=== PATIENT | male | born 1995 | race Two or more races ===

== ENCOUNTER 2018-08-28 12:47 | Emergency (ER) | payer MEDICAID ==
[~2018-08-28] VITALS: Ht 177.8 cm; Wt 119.3 kg
[2018-08-28] MEDS ORDERED: SODIUM CHLORIDE 0.9% 1,000 ML IV ONE (16:33)
[2018-08-28] MEDS ORDERED: cefTRIAXone 1GM/50ML D5W 50 ML IV ONE (16:45)
[2018-08-28] MEDS ORDERED: KETOROLAC TROMETH 15 mg/ml 1ML VL IV ONE (16:45)
[2018-08-28 17:11] LABS: Basophils # (auto) 0.1 uL; Basophils % (auto) 0.8 % (0.0-2.0); Eosinophils # (auto) 0.2 uL; Eosinophils % (auto) 1.5 % (0.0-7.0); Hematocrit 46.1 % (41.0-53.0); Hemoglobin 15.3 g/dL (13.5-17.5); Lymphocytes # (auto) 2.9 uL; Lymphocytes % (auto) 27.6 % (10.0-50.0); Mean Corpuscular Hemoglobin 27.9 pg (28.0-32.0); Mean Corpuscular Hgb Conc. 33.3 g/dL (32.0-36.0); Mean Corpuscular Volume 83.7 fL (80.0-100.0); Monocytes % (auto) 9.4 % (0.0-12.0); Neutrophils # (auto) 6.3 uL; Neutrophils % (auto) 60.7 % (37.0-80.0); Nucleated Red Blood Cells % 0.2 %; Platelet Count (auto) 190 10^3/uL (140-450); Red Cell Distribution Width 14.6 % (11.8-14.3); White Blood Cell 10.3 10^3/uL (4.4-10.8)
[2018-08-28 17:19] LABS: Albumin 3.7 g/dL (3.4-5.0); Anion Gap 8 (5-15); BUN/Creatinine Ratio 7.1; Blood Urea Nitrogen 8 mg/dL (7-18); Calcium 8.4 mg/dL (8.5-10.1); Carbon Dioxide 27 mmol/L (21-32); Chloride 108 mmol/L (98-107); GFR African American 104 mL/min; GFR Non-African American 86 mL/min; Glucose 101 mg/dL (74-106); Magnesium 2.4 mg/dL (1.6-2.6); Potassium 4.1 mmol/L (3.5-5.1); Sodium 143 mmol/L (136-145)
[2018-08-28 17:33] LABS: Alanine Aminotransferase 39 U/L (16-61); Alkaline Phosphatase 73 U/L (45-117); Aspartate Aminotransferase 12 U/L (15-37); Bilirubin, Total 0.4 mg/dL (0.2-1.0); Total Protein 7.6 g/dL (6.4-8.2)
[2018-08-28 18:47] VITALS: BP 125/65
== END 2018-08-28 18:45 | disposition home or self-care (01) ==
LOC: ER 13:04
DX: S02 Fracture of skull and facial bones (principal); H83.01 Labyrinthitis, right ear; G91.9 Hydrocephalus, unspecified; G96.0 Cerebrospinal fluid leak; Z87.820 Personal history of traumatic brain injury; X58.XXXD Exposure to other specified factors, subsequent encounter
CPT/HCPCS: 36415; 70450; 71046; 80053; 83735; 85025; 96365; 96375; 99284; J0696; J1885; J7030

== ENCOUNTER 2021-02-27 22:21 | Inpatient (IN) | payer MEDICAID ==
[~2021-02-27] VITALS: Ht 177.8 cm; Wt 103.0 kg
[2021-02-27] MEDS ORDERED: AZITHROMYCIN 500MG/ 250ML 250 ML IV ONE (22:45)
[2021-02-27] MEDS ORDERED: DexAMETHasone INJECTION 10 MG in D5W 5% 50 ML IV ONE (22:45)
[2021-02-27] MEDS ORDERED: cefTRIAXone 1GM/50ML D5W 50 ML IV ONE (22:45)
[2021-02-27 23:20] VITALS: BP 107/65
[2021-02-27] MEDS ORDERED: DexAMETHasone SOD PHOS 4 MG/1ML SDV INJ ONE (23:21)
[2021-02-28] VITALS (50 sets, daily range): BP systolic 86–136; BP diastolic 52–88
[2021-02-28] MEDS ORDERED: DexAMETHasone SOD PHOS 10MG/1ML VIAL INJ ONE
[2021-02-28] MEDS ORDERED: DOCUSATE SOD 100 MG CAP PO PRN (00:45)
[2021-02-28] MEDS ORDERED: ONDANSETRON HCL 4 MG/2 ML VIAL IV PRN (00:45)
[2021-02-28] MEDS ORDERED: HYDROcodone-ACET 5/325MG TAB PO PRN (00:45)
[2021-02-28] MEDS: SODIUM CHLORIDE 0.9% 1,000 ML IV SCH ×2 (00:45→17:50)
[2021-02-28] MEDS ORDERED: ALBUTEROL SULF HFA 90MCG INH 200DOSE IN PRN (00:45)
[2021-02-28] MEDS ORDERED: ACETAMINOPHEN 325 MG TAB PO PRN (00:45)
[2021-02-28 02:00] LABS: Basophils # (auto) 0 10 ^3/uL (0-0.2); Basophils % (auto) 0.2 % (0.0-2.0); Eosinophils # (auto) 0 10 ^3/uL (0-0.8); Hematocrit 43.4 % (41.0-53.0); Hemoglobin 14.5 g/dL (13.5-17.5); Lymphocytes # (auto) 0.7 10 ^3/uL (0.4-5.4); Lymphocytes % (auto) 9.9 % (10.0-50.0); Mean Corpuscular Hemoglobin 27.6 pg (28.0-32.0); Mean Corpuscular Hgb Conc. 33.3 g/dL (32.0-36.0); Mean Corpuscular Volume 82.9 fL (80.0-100.0); Monocytes # (auto) 0.5 10 ^3/uL (0-1.3); Monocytes % (auto) 7.1 % (0.0-12.0); Neutrophils # (auto) 5.5 10 ^3/uL (1.6-8.6); Neutrophils % (auto) 82.8 % (37.0-80.0); Nucleated Red Blood Cells % 0.1 %; Red Blood Cells 5.24 10^6/uL (4.5-5.90); Red Cell Distribution Width 14.3 % (11.8-14.3); White Blood Cell 6.7 10^3/uL (4.4-10.8)
[2021-02-28] MEDS ORDERED: ETOMIDATE (2MG/ML) 20ML VIAL IV ONE ×2 (02:11→02:30)
[2021-02-28] MEDS ORDERED: SUCCINYLCHOLINE CHLORIDE 20 MG/ML 10ML VIAL IV ONE ×2 (02:11→02:30)
[2021-02-28] MEDS ORDERED: MIDAZOLAM DRIP 50 mg/50mL 50 ML IV ONE (02:12)
[2021-02-28 02:25] LABS: INR 0.98 (0.9-1.15); Partial Thromboplastin Time 28.8 sec (23.6-33.0)
[2021-02-28] MEDS ORDERED: fentaNYL Drip 2500mCg/250mlNS 250 ML IV ONE (02:31)
[2021-02-28] MEDS: fentaNYL Drip 2500mCg/250mlNS 250 ML IV SCH ×2 (02:34→17:52)
[2021-02-28] MEDS: MIDAZOLAM DRIP 50 mg/50mL 50 ML IV SCH ×2 (02:36→17:54)
[2021-02-28 02:56] LABS: Calcium 7.5 mg/dL (8.5-10.1); Magnesium 3.6 mg/dL (1.6-2.6); Potassium 3.9 mmol/L (3.5-5.1)
[2021-02-28 03:11] LABS: Bilirubin, Total 0.3 mg/dL (0.2-1.0); Total Protein 6.7 g/dL (6.4-8.2)
[2021-02-28] MEDS ORDERED: MORPHINE SULFATE INJECTION 2 MG/ML SYRG IV PRN (03:30)
[2021-02-28] MEDS ORDERED: NITROGLYCERIN 0.4 MG SL TAB SL PRN (03:30)
[2021-02-28 04:16] LABS: BUN/Creatinine Ratio 11.8; CRP High Sensitivity 14.1 mg/dL (< 0.3)
[2021-02-28] MEDS: PROPOFOL 100 ML IV SCH (07:33)
[2021-02-28] MEDS ORDERED: BUDESONIDE (INHALATION) 180 MCG IH IN SCH (10:00)
[2021-02-28] MEDS ORDERED: FUROSEMIDE 20 MG/2 ML VIAL IV ONE ×2 (10:15→21:00)
[2021-02-28] MEDS ORDERED: IOHEXOL 350 MG/ML 100ML IJ ONE (10:35)
[2021-02-28] MEDS ORDERED: ENOXAPARIN SOD 40 MG/0.4 ML SYRINGE SC ONE (10:45)
[2021-02-28] MEDS: MULTIPLE VITAMIN TAB PO SCH (10:55)
[2021-02-28] MEDS: CHOLECALCIFEROL (VITD3) 2,000 UNIT CAP/TAB PO SCH (10:55)
[2021-02-28] MEDS: ZINC SULFATE 220mg CAP or TAB PO SCH (10:55)
[2021-02-28] MEDS: ASCORBIC ACID 1,000 MG TAB PO SCH (10:55)
[2021-02-28] MEDS: BUDESONIDE (INHALATION) 0.5 MG/2 ML NEB NEB SCH ×2 (14:00→19:40)
[2021-02-28] MEDS: FAMOTIDINE (10MG/ML) 2ML VL IV SCH (15:02)
[2021-02-28] MEDS: ALBUTEROL SULF 2.5 MG/0.5ML(0.5%) NEB SOLN NEB PRN (19:40)
[2021-02-28] MEDS ORDERED: REMDESIVIR PER PHARMACY 0 ML IV SCH (21:00)
[2021-02-28] MEDS: DexAMETHasone SOD PHOS 10MG/1ML VIAL INJ IV SCH (21:12)
[2021-02-28] MEDS: cefTRIAXone 1GM/50ML D5W 50 ML IV SCH (21:14)
[2021-02-28] MEDS: ENOXAPARIN SOD 40 MG/0.4 ML SYRINGE SC SCH (21:20)
[2021-02-28] MEDS ORDERED: REMDESIVIR 200 MG in NS 210ml LOADING DOSE ADULT IV ONE (22:00)
[2021-03-01] VITALS (88 sets, daily range): BP systolic 84–129; BP diastolic 42–74
[2021-03-01] MEDS: AZITHROMYCIN 500MG/ 250ML 250 ML IV SCH ×2 (00:18→22:15)
[2021-03-01] MEDS: FAMOTIDINE (10MG/ML) 2ML VL IV SCH ×3 (00:18→22:02)
[2021-03-01] MEDS: PROPOFOL 100 ML IV SCH (02:30)
[2021-03-01] MEDS: MIDAZOLAM DRIP 50 mg/50mL 50 ML IV SCH ×3 (05:00→19:58)
[2021-03-01] MEDS: ALBUTEROL SULF 2.5 MG/0.5ML(0.5%) NEB SOLN NEB PRN ×2 (05:59→21:38)
[2021-03-01] MEDS: BUDESONIDE (INHALATION) 0.5 MG/2 ML NEB NEB SCH ×2 (06:00→21:38)
[2021-03-01 06:35] LABS: Basophils # (auto) 0 10 ^3/uL (0-0.2); Basophils % (auto) 0.3 % (0.0-2.0); Eosinophils # (auto) 0 10 ^3/uL (0-0.8); Hematocrit 41.1 % (41.0-53.0); Hemoglobin 13.7 g/dL (13.5-17.5); Lymphocytes # (auto) 0.7 10 ^3/uL (0.4-5.4); Lymphocytes % (auto) 10.4 % (10.0-50.0); Mean Corpuscular Hemoglobin 27.5 pg (28.0-32.0); Mean Corpuscular Hgb Conc. 33.3 g/dL (32.0-36.0); Mean Corpuscular Volume 82.7 fL (80.0-100.0); Monocytes # (auto) 0.5 10 ^3/uL (0-1.3); Monocytes % (auto) 7.9 % (0.0-12.0); Neutrophils # (auto) 5.2 10 ^3/uL (1.6-8.6); Neutrophils % (auto) 81.4 % (37.0-80.0); Nucleated Red Blood Cells % 0.4 %; Red Blood Cells 4.97 10^6/uL (4.5-5.90); Red Cell Distribution Width 14.4 % (11.8-14.3); White Blood Cell 6.4 10^3/uL (4.4-10.8)
[2021-03-01 06:46] LABS: Albumin 2.7 g/dL (3.4-5.0); Anion Gap 8 (5-15); Calcium 7.5 mg/dL (8.5-10.1); Carbon Dioxide 24 mmol/L (21-32); Chloride 109 mmol/L (98-107); Magnesium 3.8 mg/dL (1.6-2.6); Potassium 3.7 mmol/L (3.5-5.1); Sodium 141 mmol/L (136-145)
[2021-03-01 06:59] LABS: Alanine Aminotransferase 61 U/L (16-61); Alkaline Phosphatase 57 U/L (45-117); Aspartate Aminotransferase 49 U/L (15-37); BUN/Creatinine Ratio 21.8; Bilirubin, Total 0.3 mg/dL (0.2-1.0); Blood Urea Nitrogen 19 mg/dL (7-18); Cholesterol 125 mg/dL (< 200); GFR African American 136 mL/min; GFR Non-African American 113 mL/min; Glucose 181 mg/dL (74-106); HDL Cholesterol 12 mg/dL (40-59); Total Protein 6.4 g/dL (6.4-8.2); Triglycerides 403 mg/dL (< 150)
[2021-03-01 07:58] LABS: Thyroid Stimulating Hormone 0.6 uIU/mL (0.358-3.74)
[2021-03-01 08:03] LABS: Urine Bacteria NONE SEEN /hpf (None Seen); Urine Blood Negative /uL (Negative); Urine Specific Gravity 1.021 (1.001-1.035); Urine WBC 4 /hpf (0 - 3)
[2021-03-01] MEDS: ENOXAPARIN SOD 40 MG/0.4 ML SYRINGE SC SCH ×2 (10:00→22:02)
[2021-03-01] MEDS: ZINC SULFATE 220mg CAP or TAB PO SCH (10:00)
[2021-03-01] MEDS: IVERMECTIN 3 MG TAB PO SCH (10:00)
[2021-03-01] MEDS: CHOLECALCIFEROL (VITD3) 2,000 UNIT CAP/TAB PO SCH (10:00)
[2021-03-01] MEDS: MULTIPLE VITAMIN TAB PO SCH (10:00)
[2021-03-01] MEDS: ASCORBIC ACID 1,000 MG TAB PO SCH (10:00)
[2021-03-01] MEDS: SODIUM CHLORIDE 0.9% 1,000 ML IV SCH ×2 (10:05→14:30)
[2021-03-01] MEDS ORDERED: FUROSEMIDE 20 MG/2 ML VIAL IV ONE (14:30)
[2021-03-01] MEDS: REMDESIVIR 100mg 100 MG in SODIUM CHL 0.9% 230 ML IV SCH (15:11)
[2021-03-01] MEDS: cefTRIAXone 1GM/50ML D5W 50 ML IV SCH (21:16)
[2021-03-01] MEDS: DexAMETHasone SOD PHOS 10MG/1ML VIAL INJ IV SCH (22:02)
[2021-03-02] VITALS (100 sets, daily range): BP systolic 97–156; BP diastolic 47–99
[2021-03-02] MEDS: fentaNYL Drip 2500mCg/250mlNS 250 ML IV SCH ×2 (02:30→12:18)
[2021-03-02] MEDS: SODIUM CHLORIDE 0.9% 1,000 ML IV SCH (02:59)
[2021-03-02 05:08] LABS: Basophils # (auto) 0 10 ^3/uL (0-0.2); Basophils % (auto) 0.3 % (0.0-2.0); Eosinophils # (auto) 0 10 ^3/uL (0-0.8); Hematocrit 38.9 % (41.0-53.0); Hemoglobin 13.6 g/dL (13.5-17.5); Lymphocytes # (auto) 0.4 10 ^3/uL (0.4-5.4); Lymphocytes % (auto) 5.8 % (10.0-50.0); Mean Corpuscular Hemoglobin 28.9 pg (28.0-32.0); Mean Corpuscular Hgb Conc. 34.9 g/dL (32.0-36.0); Mean Corpuscular Volume 82.9 fL (80.0-100.0); Monocytes # (auto) 0.7 10 ^3/uL (0-1.3); Monocytes % (auto) 8.8 % (0.0-12.0); Neutrophils # (auto) 6.5 10 ^3/uL (1.6-8.6); Neutrophils % (auto) 85.1 % (37.0-80.0); Nucleated Red Blood Cells % 0.1 %; Red Cell Distribution Width 14.6 % (11.8-14.3); White Blood Cell 7.6 10^3/uL (4.4-10.8)
[2021-03-02 05:25] LABS: Albumin 2.6 g/dL (3.4-5.0); BUN/Creatinine Ratio 26.7; Calcium 7.2 mg/dL (8.5-10.1)
[2021-03-02 05:30] LABS: Bilirubin, Total 0.3 mg/dL (0.2-1.0)
[2021-03-02] MEDS: MIDAZOLAM DRIP 50 mg/50mL 50 ML IV SCH ×4 (05:39→17:28)
[2021-03-02] MEDS: FUROSEMIDE 20 MG/2 ML VIAL IV SCH (09:31)
[2021-03-02] MEDS: ENOXAPARIN SOD 40 MG/0.4 ML SYRINGE SC SCH (09:31)
[2021-03-02] MEDS: MULTIPLE VITAMIN TAB PO SCH (09:31)
[2021-03-02] MEDS: ASCORBIC ACID 1,000 MG TAB PO SCH (09:31)
[2021-03-02] MEDS: IVERMECTIN 3 MG TAB PO SCH (09:31)
[2021-03-02] MEDS: FAMOTIDINE (10MG/ML) 2ML VL IV SCH (09:31)
[2021-03-02] MEDS: CHOLECALCIFEROL (VITD3) 2,000 UNIT CAP/TAB PO SCH (09:31)
[2021-03-02] MEDS: ZINC SULFATE 220mg CAP or TAB PO SCH (09:31)
[2021-03-02] MEDS: BUDESONIDE (INHALATION) 0.5 MG/2 ML NEB NEB SCH ×2 (11:27→19:00)
[2021-03-02] MEDS: REMDESIVIR 100mg 100 MG in SODIUM CHL 0.9% 230 ML IV SCH (15:11)
[2021-03-02] MEDS: DexAMETHasone SOD PHOS 10MG/1ML VIAL INJ IV SCH (21:45)
[2021-03-02] MEDS: cefTRIAXone 1GM/50ML D5W 50 ML IV SCH (21:46)
[2021-03-02] MEDS: ENOXAPARIN SOD 150 MG/1 ML SYRINGE SC SCH (21:47)
[2021-03-02] MEDS: AZITHROMYCIN 500MG/ 250ML 250 ML IV SCH (21:47)
[2021-03-02] MEDS: ALBUTEROL SULF 2.5 MG/0.5ML(0.5%) NEB SOLN NEB PRN (23:00)
[2021-03-03] VITALS (97 sets, daily range): BP systolic 107–150; BP diastolic 56–75
[2021-03-03 02:15] LABS: Basophils # (auto) 0 10 ^3/uL (0-0.2); Basophils % (auto) 0.1 % (0.0-2.0); Eosinophils # (auto) 0 10 ^3/uL (0-0.8); Hematocrit 39.8 % (41.0-53.0); Hemoglobin 13.3 g/dL (13.5-17.5); Lymphocytes # (auto) 0.7 10 ^3/uL (0.4-5.4); Lymphocytes % (auto) 8.7 % (10.0-50.0); Mean Corpuscular Hemoglobin 27.6 pg (28.0-32.0); Mean Corpuscular Hgb Conc. 33.5 g/dL (32.0-36.0); Mean Corpuscular Volume 82.5 fL (80.0-100.0); Monocytes # (auto) 0.9 10 ^3/uL (0-1.3); Monocytes % (auto) 10.7 % (0.0-12.0); Neutrophils # (auto) 6.5 10 ^3/uL (1.6-8.6); Neutrophils % (auto) 80.5 % (37.0-80.0); Nucleated Red Blood Cells % 0.1 %; Red Blood Cells 4.82 10^6/uL (4.5-5.90); Red Cell Distribution Width 14.8 % (11.8-14.3)
[2021-03-03 02:37] LABS: Albumin 2.5 g/dL (3.4-5.0); Calcium 7.6 mg/dL (8.5-10.1); Potassium 3.7 mmol/L (3.5-5.1)
[2021-03-03 02:39] LABS: BUN/Creatinine Ratio 28.9
[2021-03-03 02:41] LABS: Bilirubin, Total 0.6 mg/dL (0.2-1.0); Total Protein 6.2 g/dL (6.4-8.2)
[2021-03-03] MEDS: SODIUM CHLORIDE 0.9% 1,000 ML IV SCH (06:21)
[2021-03-03] MEDS: BUDESONIDE (INHALATION) 0.5 MG/2 ML NEB NEB SCH ×2 (08:19→18:58)
[2021-03-03] MEDS: ALBUTEROL SULF 2.5 MG/0.5ML(0.5%) NEB SOLN NEB PRN ×2 (08:20→18:57)
[2021-03-03] MEDS: MULTIPLE VITAMIN TAB PO SCH (09:22)
[2021-03-03] MEDS: PANTOPRAZOLE 40 MG/10 ML VIAL INJ IV SCH (09:22)
[2021-03-03] MEDS: FUROSEMIDE 20 MG/2 ML VIAL IV SCH (09:22)
[2021-03-03] MEDS: ZINC SULFATE 220mg CAP or TAB PO SCH (09:22)
[2021-03-03] MEDS: ENOXAPARIN SOD 150 MG/1 ML SYRINGE SC SCH ×2 (09:23→21:39)
[2021-03-03] MEDS: ASCORBIC ACID 1,000 MG TAB PO SCH (09:23)
[2021-03-03] MEDS: CHOLECALCIFEROL (VITD3) 2,000 UNIT CAP/TAB PO SCH (09:23)
[2021-03-03] MEDS: IVERMECTIN 3 MG TAB PO SCH (09:23)
[2021-03-03] MEDS ORDERED: D5W 5% 1,000 ML IV SCH (12:30)
[2021-03-03] MEDS: D5W 5% 1,000 ML IV SCH ×2 (14:36→20:00)
[2021-03-03] MEDS: MIDAZOLAM DRIP 50 mg/50mL 50 ML IV SCH (14:37)
[2021-03-03] MEDS: FREE WATER GT SCH ×3 (15:01→23:27)
[2021-03-03] MEDS: fentaNYL Drip 2500mCg/250mlNS 250 ML IV SCH (18:05)
[2021-03-03] MEDS: AZITHROMYCIN 500MG/ 250ML 250 ML IV SCH (21:38)
[2021-03-03] MEDS: DexAMETHasone SOD PHOS 10MG/1ML VIAL INJ IV SCH (21:38)
[2021-03-03] MEDS: cefTRIAXone 1GM/50ML D5W 50 ML IV SCH (21:39)
[2021-03-04] VITALS (99 sets, daily range): BP systolic 87–129; BP diastolic 56–121
[2021-03-04 02:55] LABS: Basophils # (auto) 0 10 ^3/uL (0-0.2); Basophils % (auto) 0.1 % (0.0-2.0); Eosinophils # (auto) 0 10 ^3/uL (0-0.8); Hematocrit 39.5 % (41.0-53.0); Hemoglobin 12.9 g/dL (13.5-17.5); Lymphocytes # (auto) 0.6 10 ^3/uL (0.4-5.4); Lymphocytes % (auto) 7.7 % (10.0-50.0); Mean Corpuscular Hemoglobin 27.6 pg (28.0-32.0); Mean Corpuscular Hgb Conc. 32.6 g/dL (32.0-36.0); Mean Corpuscular Volume 84.7 fL (80.0-100.0); Monocytes # (auto) 1.1 10 ^3/uL (0-1.3); Monocytes % (auto) 13.9 % (0.0-12.0); Neutrophils # (auto) 6.5 10 ^3/uL (1.6-8.6); Neutrophils % (auto) 78.3 % (37.0-80.0); Nucleated Red Blood Cells % 0.1 %; Red Blood Cells 4.66 10^6/uL (4.5-5.90); Red Cell Distribution Width 14.4 % (11.8-14.3); White Blood Cell 8.3 10^3/uL (4.4-10.8)
[2021-03-04] MEDS: FREE WATER GT SCH ×7 (03:00→23:45)
[2021-03-04 03:17] LABS: Albumin 2.4 g/dL (3.4-5.0); Calcium 7.6 mg/dL (8.5-10.1); Potassium 4.3 mmol/L (3.5-5.1)
[2021-03-04 03:20] LABS: BUN/Creatinine Ratio 29.1
[2021-03-04 03:25] LABS: Bilirubin, Total 0.7 mg/dL (0.2-1.0)
[2021-03-04 03:43] LABS: CRP High Sensitivity 1.27 mg/dL (< 0.3)
[2021-03-04] MEDS: BUDESONIDE (INHALATION) 0.5 MG/2 ML NEB NEB SCH ×2 (05:56→21:33)
[2021-03-04] MEDS: ENOXAPARIN SOD 150 MG/1 ML SYRINGE SC SCH ×2 (10:00→21:47)
[2021-03-04] MEDS: ZINC SULFATE 220mg CAP or TAB PO SCH (10:00)
[2021-03-04] MEDS: CHOLECALCIFEROL (VITD3) 2,000 UNIT CAP/TAB PO SCH (10:00)
[2021-03-04] MEDS: IVERMECTIN 3 MG TAB PO SCH (10:00)
[2021-03-04] MEDS: ASCORBIC ACID 1,000 MG TAB PO SCH (10:00)
[2021-03-04] MEDS: PANTOPRAZOLE 40 MG/10 ML VIAL INJ IV SCH (10:00)
[2021-03-04] MEDS: MULTIPLE VITAMIN TAB PO SCH (10:00)
[2021-03-04] MEDS: cefTRIAXone 1GM/50ML D5W 50 ML IV SCH (21:10)
[2021-03-04] MEDS: DexAMETHasone SOD PHOS 10MG/1ML VIAL INJ IV SCH (21:10)
[2021-03-04] MEDS: AZITHROMYCIN 500MG/ 250ML 250 ML IV SCH (21:10)
[2021-03-04] MEDS: NOREPINEPHRINE 8 MG/250ML KIT 250 ML IV SCH (22:45)
[2021-03-04] MEDS: PROPOFOL 100 ML IV SCH (23:00)
[2021-03-05] VITALS (99 sets, daily range): BP systolic 103–142; BP diastolic 56–91
[2021-03-05] MEDS: MIDAZOLAM DRIP 50 mg/50mL 50 ML IV SCH ×4 (02:30→22:00)
[2021-03-05] MEDS: fentaNYL Drip 2500mCg/250mlNS 250 ML IV SCH (02:30)
[2021-03-05 02:53] LABS: BUN/Creatinine Ratio 28.1; Calcium 7.8 mg/dL (8.5-10.1)
[2021-03-05] MEDS: FREE WATER GT SCH ×6 (03:00→18:10)
[2021-03-05 03:06] LABS: Basophils # (auto) 0.1 10 ^3/uL (0-0.2); Basophils % (auto) 0.7 % (0.0-2.0); Eosinophils # (auto) 0 10 ^3/uL (0-0.8); Hematocrit 40.6 % (41.0-53.0); Hemoglobin 13.1 g/dL (13.5-17.5); Lymphocytes # (auto) 0.7 10 ^3/uL (0.4-5.4); Mean Corpuscular Hemoglobin 27.5 pg (28.0-32.0); Mean Corpuscular Hgb Conc. 32.3 g/dL (32.0-36.0); Mean Corpuscular Volume 85.1 fL (80.0-100.0); Monocytes # (auto) 0.6 10 ^3/uL (0-1.3); Monocytes % (auto) 4.7 % (0.0-12.0); Neutrophils # (auto) 12.2 10 ^3/uL (1.6-8.6); Neutrophils % (auto) 89.6 % (37.0-80.0); Nucleated Red Blood Cells % 0.1 %; Red Blood Cells 4.77 10^6/uL (4.5-5.90); Red Cell Distribution Width 14.7 % (11.8-14.3); White Blood Cell 13.6 10^3/uL (4.4-10.8)
[2021-03-05] MEDS: BUDESONIDE (INHALATION) 0.5 MG/2 ML NEB NEB SCH ×2 (06:52→22:43)
[2021-03-05] MEDS: PANTOPRAZOLE 40 MG/10 ML VIAL INJ IV SCH (10:35)
[2021-03-05] MEDS: ZINC SULFATE 220mg CAP or TAB PO SCH (10:36)
[2021-03-05] MEDS: CHOLECALCIFEROL (VITD3) 2,000 UNIT CAP/TAB PO SCH (10:36)
[2021-03-05] MEDS: ASCORBIC ACID 1,000 MG TAB PO SCH (10:36)
[2021-03-05] MEDS: IVERMECTIN 3 MG TAB PO SCH (10:36)
[2021-03-05] MEDS: ENOXAPARIN SOD 150 MG/1 ML SYRINGE SC SCH ×2 (10:37→22:00)
[2021-03-05] MEDS: MULTIPLE VITAMIN TAB PO SCH (10:39)
[2021-03-05] MEDS ORDERED: Vital AF 1.2 Cal 1 liter bottle GT SCH (15:45)
[2021-03-05] MEDS: DexAMETHasone SOD PHOS 10MG/1ML VIAL INJ IV SCH (22:00)
[2021-03-05] MEDS: cefTRIAXone 1GM/50ML D5W 50 ML IV SCH (22:00)
[2021-03-05] MEDS: ALBUTEROL SULF 2.5 MG/0.5ML(0.5%) NEB SOLN NEB PRN (22:43)
[2021-03-05] MEDS: PROPOFOL 100 ML IV SCH (22:45)
[2021-03-05] MEDS: NOREPINEPHRINE 8 MG/250ML KIT 250 ML IV SCH (22:45)
[2021-03-06] VITALS (101 sets, daily range): BP systolic 108–157; BP diastolic 53–95
[2021-03-06] MEDS: MIDAZOLAM DRIP 50 mg/50mL 50 ML IV SCH ×6 (01:50→23:02)
[2021-03-06] MEDS: fentaNYL Drip 2500mCg/250mlNS 250 ML IV SCH ×2 (02:30→19:42)
[2021-03-06] MEDS: FREE WATER GT SCH ×7 (03:20→18:00)
[2021-03-06 04:57] LABS: Basophils # (auto) 0.1 10 ^3/uL (0-0.2); Basophils % (auto) 0.7 % (0.0-2.0); Eosinophils # (auto) 0 10 ^3/uL (0-0.8); Hematocrit 40.6 % (41.0-53.0); Hemoglobin 12.9 g/dL (13.5-17.5); Lymphocytes # (auto) 0.6 10 ^3/uL (0.4-5.4); Lymphocytes % (auto) 4.5 % (10.0-50.0); Mean Corpuscular Hemoglobin 27.2 pg (28.0-32.0); Mean Corpuscular Hgb Conc. 31.8 g/dL (32.0-36.0); Mean Corpuscular Volume 85.4 fL (80.0-100.0); Monocytes # (auto) 0.5 10 ^3/uL (0-1.3); Monocytes % (auto) 3.8 % (0.0-12.0); Neutrophils # (auto) 11.8 10 ^3/uL (1.6-8.6); Nucleated Red Blood Cells % 0.3 %; Red Blood Cells 4.75 10^6/uL (4.5-5.90); Red Cell Distribution Width 14.8 % (11.8-14.3)
[2021-03-06 05:22] LABS: Potassium 5.1 mmol/L (3.5-5.1)
[2021-03-06 05:31] LABS: Albumin 2.4 g/dL (3.4-5.0); BUN/Creatinine Ratio 33.3; Calcium 7.9 mg/dL (8.5-10.1)
[2021-03-06 05:46] LABS: Bilirubin, Total 0.6 mg/dL (0.2-1.0); Total Protein 5.9 g/dL (6.4-8.2)
[2021-03-06] MEDS: PANTOPRAZOLE 40 MG/10 ML VIAL INJ IV SCH (12:05)
[2021-03-06] MEDS: FUROSEMIDE 40 MG/4 ML VIAL IV SCH (12:05)
[2021-03-06] MEDS: MULTIPLE VITAMIN TAB PO SCH (12:05)
[2021-03-06] MEDS: ZINC SULFATE 220mg CAP or TAB PO SCH (12:05)
[2021-03-06] MEDS: ASCORBIC ACID 1,000 MG TAB PO SCH (12:05)
[2021-03-06] MEDS: CHOLECALCIFEROL (VITD3) 2,000 UNIT CAP/TAB PO SCH (12:06)
[2021-03-06] MEDS: ENOXAPARIN SOD 150 MG/1 ML SYRINGE SC SCH ×2 (12:06→22:00)
[2021-03-06] MEDS ORDERED: ROCURONIUM 10MG/ML 10ML VIAL IV ONE (17:50)
[2021-03-06] MEDS: ROCURONIUM 10MG/ML 10ML VIAL IV PRN ×2 (18:00→23:59)
[2021-03-06] MEDS: BUDESONIDE (INHALATION) 0.5 MG/2 ML NEB NEB SCH (21:12)
[2021-03-06] MEDS: ALBUTEROL SULF 2.5 MG/0.5ML(0.5%) NEB SOLN NEB PRN (21:12)
[2021-03-06] MEDS: PROPOFOL 100 ML IV SCH (21:25)
[2021-03-06] MEDS: DexAMETHasone SOD PHOS 10MG/1ML VIAL INJ IV SCH (21:59)
[2021-03-06] MEDS: cefTRIAXone 1GM/50ML D5W 50 ML IV SCH (22:00)
[2021-03-06] MEDS: NOREPINEPHRINE 8 MG/250ML KIT 250 ML IV SCH (22:45)
[2021-03-07] VITALS (100 sets, daily range): BP systolic 102–151; BP diastolic 57–87
[2021-03-07] MEDS: ROCURONIUM 10MG/ML 10ML VIAL IV PRN ×2 (02:04→06:07)
[2021-03-07] MEDS: PROPOFOL 100 ML IV SCH ×7 (02:11→23:37)
[2021-03-07] MEDS: FREE WATER GT SCH ×8 (03:00→23:02)
[2021-03-07] MEDS: MIDAZOLAM DRIP 50 mg/50mL 50 ML IV SCH ×5 (03:06→22:00)
[2021-03-07 04:24] LABS: Basophils # (auto) 0 10 ^3/uL (0-0.2); Basophils % (auto) 0.4 % (0.0-2.0); Eosinophils # (auto) 0 10 ^3/uL (0-0.8); Eosinophils % (auto) 0.1 % (0.0-7.0); Hematocrit 40.7 % (41.0-53.0); Hemoglobin 13.2 g/dL (13.5-17.5); Lymphocytes # (auto) 0.4 10 ^3/uL (0.4-5.4); Lymphocytes % (auto) 3.7 % (10.0-50.0); Mean Corpuscular Hemoglobin 27.7 pg (28.0-32.0); Mean Corpuscular Hgb Conc. 32.5 g/dL (32.0-36.0); Mean Corpuscular Volume 85.1 fL (80.0-100.0); Monocytes # (auto) 0.7 10 ^3/uL (0-1.3); Monocytes % (auto) 5.9 % (0.0-12.0); Neutrophils # (auto) 10.3 10 ^3/uL (1.6-8.6); Neutrophils % (auto) 89.9 % (37.0-80.0); Nucleated Red Blood Cells % 0.2 %; Red Blood Cells 4.78 10^6/uL (4.5-5.90); White Blood Cell 11.4 10^3/uL (4.4-10.8)
[2021-03-07] MEDS: fentaNYL Drip 2500mCg/250mlNS 250 ML IV SCH ×3 (04:30→21:02)
[2021-03-07 04:47] LABS: Calcium 7.8 mg/dL (8.5-10.1); Potassium 5.2 mmol/L (3.5-5.1)
[2021-03-07 04:49] LABS: BUN/Creatinine Ratio 37.9
[2021-03-07] MEDS: BUDESONIDE (INHALATION) 0.5 MG/2 ML NEB NEB SCH ×2 (06:03→19:24)
[2021-03-07] MEDS: ALBUTEROL SULF 2.5 MG/0.5ML(0.5%) NEB SOLN NEB PRN ×2 (06:04→19:24)
[2021-03-07] MEDS: ROCURONIUM BROMIDE 1,000 MG in D5W 5% 150 ML IV SCH ×2 (09:20→23:37)
[2021-03-07] MEDS: FUROSEMIDE 40 MG/4 ML VIAL IV SCH (10:17)
[2021-03-07] MEDS: PANTOPRAZOLE 40 MG/10 ML VIAL INJ IV SCH (10:17)
[2021-03-07] MEDS: MULTIPLE VITAMIN TAB PO SCH (10:17)
[2021-03-07] MEDS: CHOLECALCIFEROL (VITD3) 2,000 UNIT CAP/TAB PO SCH (10:17)
[2021-03-07] MEDS: ZINC SULFATE 220mg CAP or TAB PO SCH (10:17)
[2021-03-07] MEDS: ENOXAPARIN SOD 150 MG/1 ML SYRINGE SC SCH ×2 (10:18→22:11)
[2021-03-07] MEDS: ASCORBIC ACID 1,000 MG TAB PO SCH (10:18)
[2021-03-07] MEDS: DexAMETHasone SOD PHOS 10MG/1ML VIAL INJ IV SCH (22:11)
[2021-03-07] MEDS: cefTRIAXone 1GM/50ML D5W 50 ML IV SCH (22:11)
[2021-03-07] MEDS: NOREPINEPHRINE 8 MG/250ML KIT 250 ML IV SCH (22:45)
[2021-03-08] VITALS (99 sets, daily range): BP systolic 96–154; BP diastolic 53–88
[2021-03-08] MEDS: PROPOFOL 100 ML IV SCH ×7 (02:10→22:04)
[2021-03-08] MEDS: MIDAZOLAM DRIP 50 mg/50mL 50 ML IV SCH ×4 (02:10→20:52)
[2021-03-08] MEDS: FREE WATER GT SCH ×7 (03:00→23:49)
[2021-03-08 04:35] LABS: Basophils # (auto) 0.1 10 ^3/uL (0-0.2); Basophils % (auto) 0.7 % (0.0-2.0); Eosinophils # (auto) 0 10 ^3/uL (0-0.8); Hematocrit 41.5 % (41.0-53.0); Hemoglobin 13.5 g/dL (13.5-17.5); Lymphocytes # (auto) 0.6 10 ^3/uL (0.4-5.4); Lymphocytes % (auto) 4.9 % (10.0-50.0); Mean Corpuscular Hemoglobin 27.5 pg (28.0-32.0); Mean Corpuscular Hgb Conc. 32.5 g/dL (32.0-36.0); Mean Corpuscular Volume 84.5 fL (80.0-100.0); Monocytes # (auto) 0.6 10 ^3/uL (0-1.3); Neutrophils # (auto) 10.5 10 ^3/uL (1.6-8.6); Neutrophils % (auto) 89.4 % (37.0-80.0); Nucleated Red Blood Cells % 0.1 %; Red Blood Cells 4.91 10^6/uL (4.5-5.90); Red Cell Distribution Width 14.2 % (11.8-14.3); White Blood Cell 11.7 10^3/uL (4.4-10.8)
[2021-03-08 04:56] LABS: Albumin 2.6 g/dL (3.4-5.0); BUN/Creatinine Ratio 30.6; Calcium 7.8 mg/dL (8.5-10.1); Potassium 4.5 mmol/L (3.5-5.1)
[2021-03-08] MEDS: fentaNYL Drip 2500mCg/250mlNS 250 ML IV SCH ×2 (04:57→21:51)
[2021-03-08 04:59] LABS: Bilirubin, Total 0.6 mg/dL (0.2-1.0); Total Protein 6.7 g/dL (6.4-8.2)
[2021-03-08] MEDS: ALBUTEROL SULF 2.5 MG/0.5ML(0.5%) NEB SOLN NEB PRN ×2 (06:09→22:05)
[2021-03-08] MEDS: BUDESONIDE (INHALATION) 0.5 MG/2 ML NEB NEB SCH ×2 (06:09→22:05)
[2021-03-08] MEDS: ZINC SULFATE 220mg CAP or TAB PO SCH (10:00)
[2021-03-08] MEDS: MULTIPLE VITAMIN TAB PO SCH (10:00)
[2021-03-08] MEDS: ASCORBIC ACID 1,000 MG TAB PO SCH (10:00)
[2021-03-08] MEDS: CHOLECALCIFEROL (VITD3) 2,000 UNIT CAP/TAB PO SCH (10:00)
[2021-03-08] MEDS: PANTOPRAZOLE 40 MG/10 ML VIAL INJ IV SCH (10:03)
[2021-03-08] MEDS: FUROSEMIDE 40 MG/4 ML VIAL IV SCH ×2 (10:03→17:53)
[2021-03-08] MEDS: ENOXAPARIN SOD 150 MG/1 ML SYRINGE SC SCH ×2 (10:10→22:04)
[2021-03-08] MEDS: ROCURONIUM BROMIDE 1,000 MG in D5W 5% 150 ML IV SCH (15:34)
[2021-03-08] MEDS ORDERED: TPN PER PHARMACY 0 ML IV SCH (16:00)
[2021-03-08] MEDS ORDERED: KEP500T PO (17:11)
[2021-03-08 17:32] LABS: Magnesium 2.8 mg/dL (1.6-2.6); Phosphorus 3.4 mg/dL (2.5-4.90)
[2021-03-08 17:36] LABS: Pre Albumin 35.7 mg/dL (20.0-40.0)
[2021-03-08] MEDS ORDERED: AMINO ACID INFUSION IN D10W 1,000 ML IV NR (20:00)
[2021-03-08] MEDS: DexAMETHasone SOD PHOS 10MG/1ML VIAL INJ IV SCH (22:04)
[2021-03-08] MEDS: cefTRIAXone 1GM/50ML D5W 50 ML IV SCH (22:04)
[2021-03-08] MEDS: NOREPINEPHRINE 8 MG/250ML KIT 250 ML IV SCH (22:45)
[2021-03-08] MEDS: ACCU-CHEK COMFORT CURVE STRIP VI SCH (23:40)
[2021-03-08] MEDS: InsuLIN REG 1unit/0.01ml Soln (100units/ml) SC SCH (23:41)
[2021-03-09] VITALS (95 sets, daily range): BP systolic 87–143; BP diastolic 46–79
[2021-03-09] MEDS ORDERED: DEXTROSE (50%) 50ML SYRG IV SCH
[2021-03-09] MEDS: MIDAZOLAM DRIP 50 mg/50mL 50 ML IV SCH ×4 (01:49→21:20)
[2021-03-09] MEDS: PROPOFOL 100 ML IV SCH ×7 (01:49→22:55)
[2021-03-09] MEDS: FREE WATER GT SCH ×6 (03:00→13:26)
[2021-03-09] MEDS: ACCU-CHEK COMFORT CURVE STRIP VI SCH ×4 (05:49→23:51)
[2021-03-09] MEDS: InsuLIN REG 1unit/0.01ml Soln (100units/ml) SC SCH ×4 (05:53→23:54)
[2021-03-09] MEDS: fentaNYL Drip 2500mCg/250mlNS 250 ML IV SCH ×2 (05:54→20:24)
[2021-03-09] MEDS: FUROSEMIDE 40 MG/4 ML VIAL IV SCH ×2 (05:57→17:19)
[2021-03-09 06:46] LABS: Basophils # (auto) 0 10 ^3/uL (0-0.2); Basophils % (auto) 0.3 % (0.0-2.0); Eosinophils # (auto) 0 10 ^3/uL (0-0.8); Eosinophils % (auto) 0.1 % (0.0-7.0); Hemoglobin 13.5 g/dL (13.5-17.5); Lymphocytes # (auto) 0.5 10 ^3/uL (0.4-5.4); Lymphocytes % (auto) 4.2 % (10.0-50.0); Mean Corpuscular Hemoglobin 27.9 pg (28.0-32.0); Mean Corpuscular Hgb Conc. 32.9 g/dL (32.0-36.0); Mean Corpuscular Volume 84.9 fL (80.0-100.0); Monocytes # (auto) 0.6 10 ^3/uL (0-1.3); Monocytes % (auto) 5.1 % (0.0-12.0); Neutrophils # (auto) 11.5 10 ^3/uL (1.6-8.6); Neutrophils % (auto) 90.3 % (37.0-80.0); Nucleated Red Blood Cells % 0.1 %; Red Blood Cells 4.83 10^6/uL (4.5-5.90); Red Cell Distribution Width 14.1 % (11.8-14.3); White Blood Cell 12.7 10^3/uL (4.4-10.8)
[2021-03-09 06:56] LABS: Potassium 4.7 mmol/L (3.5-5.1)
[2021-03-09 07:01] LABS: Albumin 2.7 g/dL (3.4-5.0); BUN/Creatinine Ratio 31.1; Magnesium 3.2 mg/dL (1.6-2.6)
[2021-03-09 07:03] LABS: Bilirubin, Total 0.5 mg/dL (0.2-1.0); Phosphorus 3.8 mg/dL (2.5-4.90); Total Protein 6.9 g/dL (6.4-8.2)
[2021-03-09] MEDS: ZINC SULFATE 220mg CAP or TAB PO SCH (07:58)
[2021-03-09] MEDS: ASCORBIC ACID 1,000 MG TAB PO SCH (07:58)
[2021-03-09] MEDS: MULTIPLE VITAMIN TAB PO SCH (07:58)
[2021-03-09] MEDS: CHOLECALCIFEROL (VITD3) 2,000 UNIT CAP/TAB PO SCH (07:58)
[2021-03-09] MEDS: ROCURONIUM BROMIDE 1,000 MG in D5W 5% 150 ML IV SCH (09:36)
[2021-03-09] MEDS: ALBUTEROL SULF 2.5 MG/0.5ML(0.5%) NEB SOLN NEB PRN (09:47)
[2021-03-09] MEDS: BUDESONIDE (INHALATION) 0.5 MG/2 ML NEB NEB SCH ×2 (09:47→22:21)
[2021-03-09] MEDS: ENOXAPARIN SOD 150 MG/1 ML SYRINGE SC SCH ×2 (10:08→22:00)
[2021-03-09] MEDS: PANTOPRAZOLE 40 MG/10 ML VIAL INJ IV SCH (10:08)
[2021-03-09] MEDS ORDERED: TPN PER PHARMACY IV NR ×6 (20:00)
[2021-03-09] MEDS: DexAMETHasone SOD PHOS 10MG/1ML VIAL INJ IV SCH (22:00)
[2021-03-09] MEDS: NOREPINEPHRINE 8 MG/250ML KIT 250 ML IV SCH (22:45)
[2021-03-09] MEDS: cefTRIAXone 1GM/50ML D5W 50 ML IV SCH (22:45)
[2021-03-10] VITALS (98 sets, daily range): BP systolic 93–165; BP diastolic 54–91
[2021-03-10] MEDS: ROCURONIUM BROMIDE 1,000 MG in D5W 5% 150 ML IV SCH ×2 (00:24→18:50)
[2021-03-10] MEDS: PROPOFOL 100 ML IV SCH ×5 (01:40→22:30)
[2021-03-10] MEDS: MIDAZOLAM DRIP 50 mg/50mL 50 ML IV SCH ×4 (01:40→23:40)
[2021-03-10] MEDS: FREE WATER GT SCH ×8 (03:00→23:09)
[2021-03-10 04:18] LABS: Basophils # (auto) 0 10 ^3/uL (0-0.2); Basophils % (auto) 0.3 % (0.0-2.0); Eosinophils # (auto) 0 10 ^3/uL (0-0.8); Eosinophils % (auto) 0.2 % (0.0-7.0); Hematocrit 40.7 % (41.0-53.0); Hemoglobin 13.4 g/dL (13.5-17.5); Lymphocytes # (auto) 0.5 10 ^3/uL (0.4-5.4); Lymphocytes % (auto) 3.4 % (10.0-50.0); Mean Corpuscular Hgb Conc. 32.8 g/dL (32.0-36.0); Mean Corpuscular Volume 85.3 fL (80.0-100.0); Monocytes # (auto) 0.6 10 ^3/uL (0-1.3); Monocytes % (auto) 4.2 % (0.0-12.0); Neutrophils # (auto) 12.7 10 ^3/uL (1.6-8.6); Neutrophils % (auto) 91.9 % (37.0-80.0); Red Blood Cells 4.78 10^6/uL (4.5-5.90); Red Cell Distribution Width 14.2 % (11.8-14.3); White Blood Cell 13.8 10^3/uL (4.4-10.8)
[2021-03-10 05:05] LABS: Albumin 2.7 g/dL (3.4-5.0); BUN/Creatinine Ratio 28.2; Bilirubin, Total 0.4 mg/dL (0.2-1.0); Calcium 7.8 mg/dL (8.5-10.1); Magnesium 2.8 mg/dL (1.6-2.6); Phosphorus 2.9 mg/dL (2.5-4.90); Total Protein 6.9 g/dL (6.4-8.2)
[2021-03-10] MEDS: fentaNYL Drip 2500mCg/250mlNS 250 ML IV SCH ×3 (05:15→21:55)
[2021-03-10] MEDS: FUROSEMIDE 40 MG/4 ML VIAL IV SCH ×2 (05:30→17:28)
[2021-03-10] MEDS: ACCU-CHEK COMFORT CURVE STRIP VI SCH ×3 (05:30→17:27)
[2021-03-10] MEDS: InsuLIN REG 1unit/0.01ml Soln (100units/ml) SC SCH ×3 (05:31→17:27)
[2021-03-10] MEDS: BUDESONIDE (INHALATION) 0.5 MG/2 ML NEB NEB SCH ×2 (07:56→22:24)
[2021-03-10] MEDS: ALBUTEROL SULF 2.5 MG/0.5ML(0.5%) NEB SOLN NEB PRN ×2 (07:56→22:24)
[2021-03-10] MEDS: MULTIPLE VITAMIN TAB PO SCH (08:34)
[2021-03-10] MEDS: PANTOPRAZOLE 40 MG/10 ML VIAL INJ IV SCH (08:34)
[2021-03-10] MEDS: ZINC SULFATE 220mg CAP or TAB PO SCH (08:34)
[2021-03-10] MEDS: ENOXAPARIN SOD 150 MG/1 ML SYRINGE SC SCH ×2 (08:35→22:00)
[2021-03-10] MEDS: CHOLECALCIFEROL (VITD3) 2,000 UNIT CAP/TAB PO SCH (08:35)
[2021-03-10] MEDS: ASCORBIC ACID 1,000 MG TAB PO SCH (08:35)
[2021-03-10] MEDS ORDERED: TPN PER PHARMACY IV NR ×8 (20:00)
[2021-03-10] MEDS: DexAMETHasone SOD PHOS 10MG/1ML VIAL INJ IV SCH (22:00)
[2021-03-10] MEDS: NOREPINEPHRINE 8 MG/250ML KIT 250 ML IV SCH (22:45)
[2021-03-11] VITALS (99 sets, daily range): BP systolic 87–168; BP diastolic 51–93
[2021-03-11] MEDS: ACCU-CHEK COMFORT CURVE STRIP VI SCH ×4 (00:15→17:50)
[2021-03-11] MEDS: InsuLIN REG 1unit/0.01ml Soln (100units/ml) SC SCH ×4 (00:16→18:00)
[2021-03-11] MEDS: PROPOFOL 100 ML IV SCH ×7 (00:30→22:24)
[2021-03-11] MEDS: FREE WATER GT SCH ×7 (03:00→23:17)
[2021-03-11] MEDS: MIDAZOLAM DRIP 50 mg/50mL 50 ML IV SCH ×6 (03:25→21:00)
[2021-03-11 04:40] LABS: Basophils # (auto) 0.1 10 ^3/uL (0-0.2); Basophils % (auto) 0.4 % (0.0-2.0); Eosinophils # (auto) 0.1 10 ^3/uL (0-0.8); Eosinophils % (auto) 0.6 % (0.0-7.0); Hematocrit 39.4 % (41.0-53.0); Hemoglobin 13.2 g/dL (13.5-17.5); Lymphocytes # (auto) 0.6 10 ^3/uL (0.4-5.4); Lymphocytes % (auto) 4.1 % (10.0-50.0); Mean Corpuscular Hemoglobin 28.1 pg (28.0-32.0); Mean Corpuscular Hgb Conc. 33.5 g/dL (32.0-36.0); Mean Corpuscular Volume 83.9 fL (80.0-100.0); Monocytes # (auto) 0.6 10 ^3/uL (0-1.3); Monocytes % (auto) 4.3 % (0.0-12.0); Neutrophils # (auto) 12.3 10 ^3/uL (1.6-8.6); Neutrophils % (auto) 90.6 % (37.0-80.0); Nucleated Red Blood Cells % 0.2 %; Red Cell Distribution Width 14.1 % (11.8-14.3); White Blood Cell 13.6 10^3/uL (4.4-10.8)
[2021-03-11 05:02] LABS: Albumin 2.6 g/dL (3.4-5.0); Calcium 7.8 mg/dL (8.5-10.1); Magnesium 2.9 mg/dL (1.6-2.6); Potassium 3.9 mmol/L (3.5-5.1)
[2021-03-11 05:04] LABS: BUN/Creatinine Ratio 27.3
[2021-03-11 05:07] LABS: Bilirubin, Total 0.5 mg/dL (0.2-1.0); Phosphorus 2.9 mg/dL (2.5-4.90); Total Protein 6.6 g/dL (6.4-8.2)
[2021-03-11] MEDS: FUROSEMIDE 40 MG/4 ML VIAL IV SCH ×2 (05:51→17:35)
[2021-03-11] MEDS: fentaNYL Drip 2500mCg/250mlNS 250 ML IV SCH ×2 (06:07→15:01)
[2021-03-11] MEDS: BUDESONIDE (INHALATION) 0.5 MG/2 ML NEB NEB SCH ×2 (06:21→22:36)
[2021-03-11] MEDS: ROCURONIUM BROMIDE 1,000 MG in D5W 5% 150 ML IV SCH (09:11)
[2021-03-11] MEDS: MULTIPLE VITAMIN TAB PO SCH (09:56)
[2021-03-11] MEDS: PANTOPRAZOLE 40 MG/10 ML VIAL INJ IV SCH (09:56)
[2021-03-11] MEDS: ENOXAPARIN SOD 150 MG/1 ML SYRINGE SC SCH ×2 (09:57→22:00)
[2021-03-11] MEDS: CHOLECALCIFEROL (VITD3) 2,000 UNIT CAP/TAB PO SCH (09:57)
[2021-03-11] MEDS: ZINC SULFATE 220mg CAP or TAB PO SCH (09:57)
[2021-03-11] MEDS: ASCORBIC ACID 1,000 MG TAB PO SCH (09:57)
[2021-03-11] MEDS ORDERED: TPN PER PHARMACY IV NR ×9 (20:00)
[2021-03-11] MEDS: DexAMETHasone SOD PHOS 10MG/1ML VIAL INJ IV SCH (22:00)
[2021-03-11] MEDS: ALBUTEROL SULF 2.5 MG/0.5ML(0.5%) NEB SOLN NEB PRN (22:36)
[2021-03-11] MEDS: NOREPINEPHRINE 8 MG/250ML KIT 250 ML IV SCH (22:45)
[2021-03-12] VITALS (88 sets, daily range): BP systolic 35–163; BP diastolic 2–105
[2021-03-12] MEDS: ACCU-CHEK COMFORT CURVE STRIP VI SCH ×5 (00:12→23:30)
[2021-03-12] MEDS: InsuLIN REG 1unit/0.01ml Soln (100units/ml) SC SCH ×5 (00:13→23:29)
[2021-03-12] MEDS: fentaNYL Drip 2500mCg/250mlNS 250 ML IV SCH ×4 (00:13→22:46)
[2021-03-12] MEDS: MIDAZOLAM DRIP 50 mg/50mL 50 ML IV SCH ×7 (00:30→19:13)
[2021-03-12] MEDS: PROPOFOL 100 ML IV SCH ×10 (01:00→22:42)
[2021-03-12] MEDS: FREE WATER GT SCH ×7 (02:21→23:29)
[2021-03-12] MEDS: ROCURONIUM BROMIDE 1,000 MG in D5W 5% 150 ML IV SCH ×2 (02:35→17:47)
[2021-03-12 04:23] LABS: Basophils # (auto) 0 10 ^3/uL (0-0.2); Basophils % (auto) 0.2 % (0.0-2.0); Eosinophils # (auto) 0 10 ^3/uL (0-0.8); Eosinophils % (auto) 0.1 % (0.0-7.0); Hematocrit 39.6 % (41.0-53.0); Hemoglobin 13.1 g/dL (13.5-17.5); Lymphocytes # (auto) 0.5 10 ^3/uL (0.4-5.4); Lymphocytes % (auto) 3.4 % (10.0-50.0); Mean Corpuscular Hemoglobin 27.8 pg (28.0-32.0); Mean Corpuscular Hgb Conc. 33.2 g/dL (32.0-36.0); Mean Corpuscular Volume 83.8 fL (80.0-100.0); Monocytes # (auto) 0.4 10 ^3/uL (0-1.3); Monocytes % (auto) 2.7 % (0.0-12.0); Neutrophils # (auto) 14.6 10 ^3/uL (1.6-8.6); Neutrophils % (auto) 93.6 % (37.0-80.0); Nucleated Red Blood Cells % 0.1 %; Red Blood Cells 4.72 10^6/uL (4.5-5.90); White Blood Cell 15.6 10^3/uL (4.4-10.8)
[2021-03-12 04:32] LABS: Potassium 3.9 mmol/L (3.5-5.1)
[2021-03-12 04:44] LABS: Albumin 2.9 g/dL (3.4-5.0); BUN/Creatinine Ratio 29.7; Bilirubin, Total 0.5 mg/dL (0.2-1.0); Calcium 7.9 mg/dL (8.5-10.1); Magnesium 3.6 mg/dL (1.6-2.6); Phosphorus 2.8 mg/dL (2.5-4.90); Total Protein 6.8 g/dL (6.4-8.2)
[2021-03-12] MEDS: FUROSEMIDE 40 MG/4 ML VIAL IV SCH ×2 (05:57→18:05)
[2021-03-12] MEDS: ENOXAPARIN SOD 150 MG/1 ML SYRINGE SC SCH ×2 (09:50→22:00)
[2021-03-12] MEDS: MULTIPLE VITAMIN TAB PO SCH (09:50)
[2021-03-12] MEDS: PANTOPRAZOLE 40 MG/10 ML VIAL INJ IV SCH (09:50)
[2021-03-12] MEDS: CHOLECALCIFEROL (VITD3) 2,000 UNIT CAP/TAB PO SCH (09:50)
[2021-03-12] MEDS: ASCORBIC ACID 1,000 MG TAB PO SCH (09:50)
[2021-03-12] MEDS: ZINC SULFATE 220mg CAP or TAB PO SCH (09:50)
[2021-03-12] MEDS: cefTRIAXone 1GM/50ML D5W 50 ML IV SCH (14:22)
[2021-03-12] MEDS ORDERED: TPN PER PHARMACY IV NR ×9 (20:00)
[2021-03-12] MEDS: DexAMETHasone SOD PHOS 10MG/1ML VIAL INJ IV SCH (22:00)
[2021-03-12] MEDS: BUDESONIDE (INHALATION) 0.5 MG/2 ML NEB NEB SCH (22:42)
[2021-03-12] MEDS: ALBUTEROL SULF 2.5 MG/0.5ML(0.5%) NEB SOLN NEB PRN (22:42)
[2021-03-12] MEDS: NOREPINEPHRINE 8 MG/250ML KIT 250 ML IV SCH (22:45)
[2021-03-13] VITALS (94 sets, daily range): BP systolic 97–150; BP diastolic 45–94
[2021-03-13] MEDS: PROPOFOL 100 ML IV SCH ×6 (01:24→21:49)
[2021-03-13] MEDS: FREE WATER GT SCH ×6 (03:11→18:22)
[2021-03-13] MEDS: FUROSEMIDE 40 MG/4 ML VIAL IV SCH ×2 (05:35→18:23)
[2021-03-13] MEDS: InsuLIN REG 1unit/0.01ml Soln (100units/ml) SC SCH ×3 (05:36→18:23)
[2021-03-13] MEDS: ACCU-CHEK COMFORT CURVE STRIP VI SCH ×3 (05:37→18:23)
[2021-03-13 05:50] LABS: Basophils # (auto) 0.1 10 ^3/uL (0-0.2); Basophils % (auto) 0.4 % (0.0-2.0); Eosinophils # (auto) 0 10 ^3/uL (0-0.8); Eosinophils % (auto) 0.1 % (0.0-7.0); Hemoglobin 13.4 g/dL (13.5-17.5); Lymphocytes # (auto) 0.5 10 ^3/uL (0.4-5.4); Lymphocytes % (auto) 4.3 % (10.0-50.0); Mean Corpuscular Hemoglobin 27.9 pg (28.0-32.0); Mean Corpuscular Hgb Conc. 33.4 g/dL (32.0-36.0); Mean Corpuscular Volume 83.5 fL (80.0-100.0); Monocytes # (auto) 0.5 10 ^3/uL (0-1.3); Monocytes % (auto) 3.6 % (0.0-12.0); Neutrophils # (auto) 11.6 10 ^3/uL (1.6-8.6); Neutrophils % (auto) 91.6 % (37.0-80.0); Red Blood Cells 4.79 10^6/uL (4.5-5.90); Red Cell Distribution Width 14.1 % (11.8-14.3); White Blood Cell 12.6 10^3/uL (4.4-10.8)
[2021-03-13 06:15] LABS: Calcium 8.1 mg/dL (8.5-10.1); Potassium 3.9 mmol/L (3.5-5.1)
[2021-03-13 06:23] LABS: BUN/Creatinine Ratio 27.8; Bilirubin, Total 0.4 mg/dL (0.2-1.0); Magnesium 3.5 mg/dL (1.6-2.6); Phosphorus 3.8 mg/dL (2.5-4.90); Pre Albumin 43.7 mg/dL (20.0-40.0); Total Protein 7.2 g/dL (6.4-8.2)
[2021-03-13] MEDS: fentaNYL Drip 2500mCg/250mlNS 250 ML IV SCH ×3 (06:45→23:50)
[2021-03-13] MEDS: cefTRIAXone 1GM/50ML D5W 50 ML IV SCH (08:38)
[2021-03-13] MEDS: PANTOPRAZOLE 40 MG/10 ML VIAL INJ IV SCH (10:20)
[2021-03-13] MEDS: MULTIPLE VITAMIN TAB PO SCH (10:20)
[2021-03-13] MEDS: ZINC SULFATE 220mg CAP or TAB PO SCH (10:20)
[2021-03-13] MEDS: ASCORBIC ACID 1,000 MG TAB PO SCH (10:20)
[2021-03-13] MEDS: MIDAZOLAM DRIP 50 mg/50mL 50 ML IV SCH ×3 (10:20→19:07)
[2021-03-13] MEDS: ENOXAPARIN SOD 150 MG/1 ML SYRINGE SC SCH ×2 (10:20→22:16)
[2021-03-13] MEDS: CHOLECALCIFEROL (VITD3) 2,000 UNIT CAP/TAB PO SCH (10:20)
[2021-03-13] MEDS: ROCURONIUM BROMIDE 1,000 MG in D5W 5% 150 ML IV SCH (13:18)
[2021-03-13] MEDS ORDERED: TPN PER PHARMACY IV NR ×9 (20:00)
[2021-03-13] MEDS: DexAMETHasone SOD PHOS 10MG/1ML VIAL INJ IV SCH (22:14)
[2021-03-13] MEDS: ALBUTEROL SULF 2.5 MG/0.5ML(0.5%) NEB SOLN NEB PRN (22:17)
[2021-03-13] MEDS: BUDESONIDE (INHALATION) 0.5 MG/2 ML NEB NEB SCH (22:18)
[2021-03-13] MEDS: ACETAMINOPHEN 500 MG TAB PO PRN (22:18)
[2021-03-14] VITALS (87 sets, daily range): BP systolic 99–160; BP diastolic 45–98
[2021-03-14] MEDS: PROPOFOL 100 ML IV SCH ×9 (00:27→21:48)
[2021-03-14] MEDS: FREE WATER GT SCH ×4 (00:58→09:00)
[2021-03-14] MEDS: MIDAZOLAM DRIP 50 mg/50mL 50 ML IV SCH ×6 (02:16→22:59)
[2021-03-14 05:00] LABS: Basophils # (auto) 0.1 10 ^3/uL (0-0.2); Basophils % (auto) 0.6 % (0.0-2.0); Eosinophils # (auto) 0 10 ^3/uL (0-0.8); Eosinophils % (auto) 0.1 % (0.0-7.0); Hematocrit 37.8 % (41.0-53.0); Hemoglobin 12.6 g/dL (13.5-17.5); Lymphocytes # (auto) 0.7 10 ^3/uL (0.4-5.4); Lymphocytes % (auto) 5.6 % (10.0-50.0); Mean Corpuscular Hemoglobin 28.1 pg (28.0-32.0); Mean Corpuscular Hgb Conc. 33.3 g/dL (32.0-36.0); Mean Corpuscular Volume 84.6 fL (80.0-100.0); Monocytes # (auto) 0.6 10 ^3/uL (0-1.3); Monocytes % (auto) 4.8 % (0.0-12.0); Neutrophils # (auto) 11.2 10 ^3/uL (1.6-8.6); Neutrophils % (auto) 88.9 % (37.0-80.0); Red Blood Cells 4.47 10^6/uL (4.5-5.90); Red Cell Distribution Width 14.1 % (11.8-14.3); White Blood Cell 12.6 10^3/uL (4.4-10.8)
[2021-03-14 05:23] LABS: Potassium 3.8 mmol/L (3.5-5.1)
[2021-03-14 05:26] LABS: Albumin 2.8 g/dL (3.4-5.0); Calcium 8.5 mg/dL (8.5-10.1); Magnesium 2.6 mg/dL (1.6-2.6)
[2021-03-14 05:30] LABS: Bilirubin, Total 0.6 mg/dL (0.2-1.0); Phosphorus 3.2 mg/dL (2.5-4.90); Total Protein 6.6 g/dL (6.4-8.2)
[2021-03-14] MEDS: InsuLIN REG 1unit/0.01ml Soln (100units/ml) SC SCH ×4 (06:00→18:21)
[2021-03-14] MEDS: ACCU-CHEK COMFORT CURVE STRIP VI SCH ×4 (06:00→18:20)
[2021-03-14] MEDS: FUROSEMIDE 40 MG/4 ML VIAL IV SCH ×2 (06:35→18:20)
[2021-03-14] MEDS: ROCURONIUM BROMIDE 1,000 MG in D5W 5% 150 ML IV SCH (06:38)
[2021-03-14] MEDS: cefTRIAXone 1GM/50ML D5W 50 ML IV SCH (08:46)
[2021-03-14] MEDS: fentaNYL Drip 2500mCg/250mlNS 250 ML IV SCH (08:51)
[2021-03-14] MEDS: ZINC SULFATE 220mg CAP or TAB PO SCH (09:45)
[2021-03-14] MEDS: PANTOPRAZOLE 40 MG/10 ML VIAL INJ IV SCH (09:45)
[2021-03-14] MEDS: CHOLECALCIFEROL (VITD3) 2,000 UNIT CAP/TAB PO SCH (09:45)
[2021-03-14] MEDS: MULTIPLE VITAMIN TAB PO SCH (09:45)
[2021-03-14] MEDS: ASCORBIC ACID 1,000 MG TAB PO SCH (09:45)
[2021-03-14] MEDS: ALBUTEROL SULF 2.5 MG/0.5ML(0.5%) NEB SOLN NEB PRN ×2 (10:11→19:38)
[2021-03-14] MEDS: NOREPINEPHRINE 8 MG/250ML KIT 250 ML IV SCH ×2 (15:16→22:45)
[2021-03-14] MEDS: BUDESONIDE (INHALATION) 0.5 MG/2 ML NEB NEB SCH (19:38)
[2021-03-14] MEDS ORDERED: TPN PER PHARMACY IV NR ×9 (20:00)
[2021-03-14] MEDS: DexAMETHasone SOD PHOS 10MG/1ML VIAL INJ IV SCH (21:48)
[2021-03-14] MEDS: ENOXAPARIN SOD 150 MG/1 ML SYRINGE SC SCH (22:58)
[2021-03-15] VITALS (67 sets, daily range): BP systolic 96–144; BP diastolic 45–87
[2021-03-15] MEDS: InsuLIN REG 1unit/0.01ml Soln (100units/ml) SC SCH ×5 (00:02→18:11)
[2021-03-15] MEDS: ACCU-CHEK COMFORT CURVE STRIP VI SCH ×4 (00:02→18:11)
[2021-03-15] MEDS: PROPOFOL 100 ML IV SCH ×4 (02:16→22:51)
[2021-03-15] MEDS: ROCURONIUM BROMIDE 1,000 MG in D5W 5% 150 ML IV SCH ×2 (02:17→17:07)
[2021-03-15] MEDS: MIDAZOLAM DRIP 50 mg/50mL 50 ML IV SCH ×3 (03:32→22:48)
[2021-03-15] MEDS: fentaNYL Drip 2500mCg/250mlNS 250 ML IV SCH ×2 (03:32→20:47)
[2021-03-15 04:16] LABS: Basophils # (auto) 0 10 ^3/uL (0-0.2); Basophils % (auto) 0.4 % (0.0-2.0); Eosinophils # (auto) 0 10 ^3/uL (0-0.8); Eosinophils % (auto) 0.3 % (0.0-7.0); Hematocrit 38.4 % (41.0-53.0); Hemoglobin 12.4 g/dL (13.5-17.5); Lymphocytes # (auto) 0.9 10 ^3/uL (0.4-5.4); Lymphocytes % (auto) 7.1 % (10.0-50.0); Mean Corpuscular Hemoglobin 27.2 pg (28.0-32.0); Mean Corpuscular Hgb Conc. 32.2 g/dL (32.0-36.0); Mean Corpuscular Volume 84.6 fL (80.0-100.0); Monocytes # (auto) 0.6 10 ^3/uL (0-1.3); Monocytes % (auto) 4.8 % (0.0-12.0); Neutrophils # (auto) 11.2 10 ^3/uL (1.6-8.6); Neutrophils % (auto) 87.4 % (37.0-80.0); Nucleated Red Blood Cells % 0.1 %; Red Blood Cells 4.54 10^6/uL (4.5-5.90); Red Cell Distribution Width 14.3 % (11.8-14.3); White Blood Cell 12.8 10^3/uL (4.4-10.8)
[2021-03-15 04:20] LABS: INR 1.02 (0.9-1.15)
[2021-03-15 04:25] LABS: Potassium 3.6 mmol/L (3.5-5.1)
[2021-03-15 04:31] LABS: Albumin 2.9 g/dL (3.4-5.0); BUN/Creatinine Ratio 31.9; Bilirubin, Total 0.5 mg/dL (0.2-1.0); Magnesium 3.3 mg/dL (1.6-2.6); Phosphorus 3.8 mg/dL (2.5-4.90); Total Protein 6.8 g/dL (6.4-8.2)
[2021-03-15] MEDS: FUROSEMIDE 40 MG/4 ML VIAL IV SCH ×2 (06:34→17:12)
[2021-03-15] MEDS: cefTRIAXone 1GM/50ML D5W 50 ML IV SCH (09:19)
[2021-03-15] MEDS: ZINC SULFATE 220mg CAP or TAB PO SCH (10:00)
[2021-03-15] MEDS: BUDESONIDE (INHALATION) 0.5 MG/2 ML NEB NEB SCH ×4 (10:00→19:59)
[2021-03-15] MEDS: CHOLECALCIFEROL (VITD3) 2,000 UNIT CAP/TAB PO SCH (10:23)
[2021-03-15] MEDS: ASCORBIC ACID 1,000 MG TAB PO SCH (10:23)
[2021-03-15] MEDS: ENOXAPARIN SOD 150 MG/1 ML SYRINGE SC SCH ×2 (10:23→22:49)
[2021-03-15] MEDS: MULTIPLE VITAMIN TAB PO SCH (10:23)
[2021-03-15] MEDS: PANTOPRAZOLE 40 MG/10 ML VIAL INJ IV SCH (10:23)
[2021-03-15] MEDS: ALBUTEROL SULF 2.5 MG/0.5ML(0.5%) NEB SOLN NEB PRN ×3 (12:43→19:59)
[2021-03-15] MEDS ORDERED: TPN PER PHARMACY IV NR ×9 (20:00)
[2021-03-15] MEDS: NOREPINEPHRINE 8 MG/250ML KIT 250 ML IV SCH (22:45)
[2021-03-15] MEDS: DexAMETHasone SOD PHOS 10MG/1ML VIAL INJ IV SCH (22:49)
[2021-03-16] VITALS (65 sets, daily range): BP systolic 89–131; BP diastolic 42–80
[2021-03-16] MEDS: PROPOFOL 100 ML IV SCH ×4 (00:40→14:09)
[2021-03-16] MEDS: ACCU-CHEK COMFORT CURVE STRIP VI SCH ×4 (00:40→18:00)
[2021-03-16] MEDS: InsuLIN REG 1unit/0.01ml Soln (100units/ml) SC SCH ×4 (00:42→18:00)
[2021-03-16] MEDS: MIDAZOLAM DRIP 50 mg/50mL 50 ML IV SCH ×3 (02:11→14:10)
[2021-03-16] MEDS: ROCURONIUM BROMIDE 1,000 MG in D5W 5% 150 ML IV SCH (03:26)
[2021-03-16 05:22] LABS: Potassium 3.7 mmol/L (3.5-5.1)
[2021-03-16 05:30] LABS: Albumin 2.9 g/dL (3.4-5.0); BUN/Creatinine Ratio 41.7; Bilirubin, Total 0.5 mg/dL (0.2-1.0); Calcium 8.1 mg/dL (8.5-10.1); Magnesium 3.6 mg/dL (1.6-2.6); Phosphorus 3.4 mg/dL (2.5-4.90); Total Protein 6.5 g/dL (6.4-8.2)
[2021-03-16] MEDS: FUROSEMIDE 40 MG/4 ML VIAL IV SCH ×2 (06:42→18:00)
[2021-03-16] MEDS: PANTOPRAZOLE 40 MG/10 ML VIAL INJ IV SCH (09:11)
[2021-03-16] MEDS: cefTRIAXone 1GM/50ML D5W 50 ML IV SCH (09:11)
[2021-03-16] MEDS: ZINC SULFATE 220mg CAP or TAB PO SCH (09:12)
[2021-03-16] MEDS: MULTIPLE VITAMIN TAB PO SCH (09:12)
[2021-03-16] MEDS: CHOLECALCIFEROL (VITD3) 2,000 UNIT CAP/TAB PO SCH (09:12)
[2021-03-16] MEDS: ASCORBIC ACID 1,000 MG TAB PO SCH (09:12)
[2021-03-16] MEDS: ENOXAPARIN SOD 150 MG/1 ML SYRINGE SC SCH ×2 (09:13→22:57)
[2021-03-16] MEDS: ALBUTEROL SULF 2.5 MG/0.5ML(0.5%) NEB SOLN NEB PRN ×2 (10:29→21:58)
[2021-03-16] MEDS: BUDESONIDE (INHALATION) 0.5 MG/2 ML NEB NEB SCH ×2 (10:29→21:57)
[2021-03-16] MEDS: fentaNYL Drip 2500mCg/250mlNS 250 ML IV SCH (14:06)
[2021-03-16] MEDS ORDERED: TPN PER PHARMACY IV NR ×9 (20:00)
[2021-03-16] MEDS: NOREPINEPHRINE 8 MG/250ML KIT 250 ML IV SCH (22:45)
[2021-03-16] MEDS: DexAMETHasone SOD PHOS 10MG/1ML VIAL INJ IV SCH (22:56)
[2021-03-17] VITALS (77 sets, daily range): BP systolic 89–130; BP diastolic 42–80
[2021-03-17] MEDS: InsuLIN REG 1unit/0.01ml Soln (100units/ml) SC SCH ×5 (00:06→23:32)
[2021-03-17] MEDS: ACCU-CHEK COMFORT CURVE STRIP VI SCH ×5 (00:27→23:31)
[2021-03-17] MEDS: ROCURONIUM BROMIDE 1,000 MG in D5W 5% 150 ML IV SCH ×2 (00:28→18:36)
[2021-03-17] MEDS: POTASSIUM CHL 10MEQ/50ML 50 ML IV SCH ×8 (00:40→23:26)
[2021-03-17 04:30] LABS: Albumin 2.8 g/dL (3.4-5.0); Calcium 8.3 mg/dL (8.5-10.1); Magnesium 2.4 mg/dL (1.6-2.6)
[2021-03-17 04:38] LABS: Bilirubin, Total 0.4 mg/dL (0.2-1.0); Phosphorus 2.7 mg/dL (2.5-4.90); Total Protein 6.4 g/dL (6.4-8.2)
[2021-03-17 05:04] LABS: Potassium 2.8 mmol/L (3.5-5.1)
[2021-03-17] MEDS: FUROSEMIDE 40 MG/4 ML VIAL IV SCH ×2 (05:37→17:42)
[2021-03-17] MEDS: fentaNYL Drip 2500mCg/250mlNS 250 ML IV SCH ×3 (05:53→22:44)
[2021-03-17] MEDS: PROPOFOL 100 ML IV SCH ×6 (06:02→22:41)
[2021-03-17] MEDS: MIDAZOLAM DRIP 50 mg/50mL 50 ML IV SCH ×4 (07:49→22:40)
[2021-03-17] MEDS ORDERED: POTASSIUM CHL 20 Meq TABLET PO ONE (08:45)
[2021-03-17] MEDS: ZINC SULFATE 220mg CAP or TAB PO SCH (10:00)
[2021-03-17] MEDS: CHOLECALCIFEROL (VITD3) 2,000 UNIT CAP/TAB PO SCH (10:00)
[2021-03-17] MEDS ORDERED: QUEtiapine FUMARATE 25 MG TAB PO SCH (10:00)
[2021-03-17] MEDS: cefTRIAXone 1GM/50ML D5W 50 ML IV SCH (10:09)
[2021-03-17] MEDS: MULTIPLE VITAMIN TAB PO SCH (10:10)
[2021-03-17] MEDS: ASCORBIC ACID 1,000 MG TAB PO SCH (10:10)
[2021-03-17] MEDS: ENOXAPARIN SOD 150 MG/1 ML SYRINGE SC SCH ×2 (10:10→22:28)
[2021-03-17] MEDS: PANTOPRAZOLE 40 MG/10 ML VIAL INJ IV SCH (10:10)
[2021-03-17] MEDS: BUDESONIDE (INHALATION) 0.5 MG/2 ML NEB NEB SCH ×2 (15:31→21:54)
[2021-03-17] MEDS: ALBUTEROL SULF 2.5 MG/0.5ML(0.5%) NEB SOLN NEB PRN ×2 (15:31→21:54)
[2021-03-17 18:46] LABS: Potassium 3.1 mmol/L (3.5-5.1)
[2021-03-17] MEDS ORDERED: TPN PER PHARMACY IV NR ×9 (20:00)
[2021-03-17] MEDS: DexAMETHasone SOD PHOS 10MG/1ML VIAL INJ IV SCH (22:25)
[2021-03-17] MEDS: QUEtiapine FUMARATE 25 MG TAB PO SCH (22:28)
[2021-03-17] MEDS: NOREPINEPHRINE 8 MG/250ML KIT 250 ML IV SCH (22:45)
[2021-03-18] VITALS (71 sets, daily range): BP systolic 100–134; BP diastolic 46–80
[2021-03-18] MEDS: PROPOFOL 100 ML IV SCH ×5 (04:46→18:30)
[2021-03-18 05:38] LABS: Potassium 4.6 mmol/L (3.5-5.1)
[2021-03-18 05:45] LABS: Albumin 2.6 g/dL (3.4-5.0); BUN/Creatinine Ratio 38.9; Calcium 8.3 mg/dL (8.5-10.1); Magnesium 2.3 mg/dL (1.6-2.6)
[2021-03-18 05:49] LABS: Bilirubin, Total 0.5 mg/dL (0.2-1.0); Phosphorus 3.5 mg/dL (2.5-4.90); Total Protein 6.5 g/dL (6.4-8.2)
[2021-03-18] MEDS: ACCU-CHEK COMFORT CURVE STRIP VI SCH ×3 (06:07→17:30)
[2021-03-18] MEDS: InsuLIN REG 1unit/0.01ml Soln (100units/ml) SC SCH ×3 (06:08→17:30)
[2021-03-18] MEDS: FUROSEMIDE 40 MG/4 ML VIAL IV SCH ×2 (06:12→18:05)
[2021-03-18] MEDS: fentaNYL Drip 2500mCg/250mlNS 250 ML IV SCH ×3 (06:14→22:44)
[2021-03-18] MEDS: ALBUTEROL SULF 2.5 MG/0.5ML(0.5%) NEB SOLN NEB PRN ×2 (07:32→18:38)
[2021-03-18] MEDS: BUDESONIDE (INHALATION) 0.5 MG/2 ML NEB NEB SCH ×2 (07:32→18:38)
[2021-03-18] MEDS: cefTRIAXone 1GM/50ML D5W 50 ML IV SCH (08:47)
[2021-03-18] MEDS: ROCURONIUM BROMIDE 1,000 MG in D5W 5% 150 ML IV SCH ×2 (09:37→15:00)
[2021-03-18] MEDS: PANTOPRAZOLE 40 MG/10 ML VIAL INJ IV SCH (11:25)
[2021-03-18] MEDS: ASCORBIC ACID 1,000 MG TAB PO SCH (11:26)
[2021-03-18] MEDS: CHOLECALCIFEROL (VITD3) 2,000 UNIT CAP/TAB PO SCH (11:26)
[2021-03-18] MEDS: ZINC SULFATE 220mg CAP or TAB PO SCH (11:26)
[2021-03-18] MEDS: ENOXAPARIN SOD 150 MG/1 ML SYRINGE SC SCH ×2 (11:26→22:06)
[2021-03-18] MEDS: MULTIPLE VITAMIN TAB PO SCH (11:26)
[2021-03-18] MEDS: QUEtiapine FUMARATE 25 MG TAB PO SCH ×2 (11:26→22:06)
[2021-03-18] MEDS: MIDAZOLAM DRIP 50 mg/50mL 50 ML IV SCH ×2 (13:00→18:00)
[2021-03-18] MEDS: ROCURONIUM 10MG/ML 10ML VIAL IV PRN (15:00)
[2021-03-18] MEDS ORDERED: SODIUM CHLORIDE IV NR ×10 (20:00)
[2021-03-18] MEDS ORDERED: SODIUM PHOSPHATES IV NR ×10 (20:00)
[2021-03-18] MEDS ORDERED: POTASSIUM CHLORIDE IV NR ×10 (20:00)
[2021-03-18] MEDS ORDERED: [UNRECOGNIZED DRUG - OTHER] IV NR ×10 (20:00)
[2021-03-18] MEDS: DexAMETHasone SOD PHOS 10MG/1ML VIAL INJ IV SCH (22:05)
[2021-03-18] MEDS: clonazePAM 0.5 MG TAB PO SCH (22:05)
[2021-03-18] MEDS: NOREPINEPHRINE 8 MG/250ML KIT 250 ML IV SCH (22:45)
[2021-03-19] VITALS (85 sets, daily range): BP systolic 101–136; BP diastolic 49–78
[2021-03-19] MEDS: ACCU-CHEK COMFORT CURVE STRIP VI SCH ×4 (00:13→17:40)
[2021-03-19] MEDS: InsuLIN REG 1unit/0.01ml Soln (100units/ml) SC SCH ×4 (00:14→17:28)
[2021-03-19 05:23] LABS: Albumin 2.5 g/dL (3.4-5.0); Magnesium 3.2 mg/dL (1.6-2.6); Potassium 5.1 mmol/L (3.5-5.1)
[2021-03-19 05:27] LABS: BUN/Creatinine Ratio 43.5; Bilirubin, Total 0.5 mg/dL (0.2-1.0); Total Protein 6.6 g/dL (6.4-8.2)
[2021-03-19] MEDS: MIDAZOLAM DRIP 50 mg/50mL 50 ML IV SCH ×2 (05:44→08:55)
[2021-03-19] MEDS: PROPOFOL 100 ML IV SCH ×2 (05:45→08:14)
[2021-03-19] MEDS: FUROSEMIDE 40 MG/4 ML VIAL IV SCH ×2 (06:36→17:41)
[2021-03-19] MEDS: fentaNYL Drip 2500mCg/250mlNS 250 ML IV SCH (06:38)
[2021-03-19] MEDS: cefTRIAXone 1GM/50ML D5W 50 ML IV SCH (08:38)
[2021-03-19] MEDS: ZINC SULFATE 220mg CAP or TAB PO SCH (08:49)
[2021-03-19] MEDS: PANTOPRAZOLE 40 MG/10 ML VIAL INJ IV SCH (08:49)
[2021-03-19] MEDS: ASCORBIC ACID 1,000 MG TAB PO SCH (08:50)
[2021-03-19] MEDS: QUEtiapine FUMARATE 25 MG TAB PO SCH ×2 (08:50→22:00)
[2021-03-19] MEDS: clonazePAM 0.5 MG TAB PO SCH ×2 (08:50→22:00)
[2021-03-19] MEDS: CHOLECALCIFEROL (VITD3) 2,000 UNIT CAP/TAB PO SCH (08:50)
[2021-03-19] MEDS: MULTIPLE VITAMIN TAB PO SCH (08:50)
[2021-03-19] MEDS: ALBUTEROL SULF 2.5 MG/0.5ML(0.5%) NEB SOLN NEB PRN ×2 (09:55→22:31)
[2021-03-19] MEDS: BUDESONIDE (INHALATION) 0.5 MG/2 ML NEB NEB SCH ×2 (09:55→22:31)
[2021-03-19] MEDS: ENOXAPARIN SOD 150 MG/1 ML SYRINGE SC SCH ×2 (10:00→22:00)
[2021-03-19] MEDS ORDERED: METOCLOPRAMIDE HCL 5MG/ml INJ 2ml VIAL IV ONE (15:00)
[2021-03-19] MEDS: ROCURONIUM BROMIDE 1,000 MG in D5W 5% 150 ML IV SCH (17:41)
[2021-03-19] MEDS ORDERED: TPN PER PHARMACY IV NR ×9 (20:00)
[2021-03-19] MEDS: METOCLOPRAMIDE HCL 5MG/ml INJ 2ml VIAL IV SCH (22:00)
[2021-03-19] MEDS: NOREPINEPHRINE 8 MG/250ML KIT 250 ML IV SCH (22:45)
[2021-03-20] VITALS (99 sets, daily range): BP systolic 100–143; BP diastolic 57–87
[2021-03-20] MEDS: DexAMETHasone SOD PHOS 10MG/1ML VIAL INJ IV SCH ×2 (00:06→21:52)
[2021-03-20] MEDS: InsuLIN REG 1unit/0.01ml Soln (100units/ml) SC SCH ×4 (00:08→18:00)
[2021-03-20] MEDS: ACCU-CHEK COMFORT CURVE STRIP VI SCH ×4 (00:17→18:00)
[2021-03-20] MEDS: PROPOFOL 100 ML IV SCH ×3 (02:44→14:25)
[2021-03-20 04:40] LABS: Basophils # (auto) 0.1 10 ^3/uL (0-0.2); Basophils % (auto) 0.8 % (0.0-2.0); Eosinophils # (auto) 0 10 ^3/uL (0-0.8); Eosinophils % (auto) 0.2 % (0.0-7.0); Hematocrit 36.7 % (41.0-53.0); Hemoglobin 12.2 g/dL (13.5-17.5); Lymphocytes % (auto) 9.5 % (10.0-50.0); Mean Corpuscular Hemoglobin 28.1 pg (28.0-32.0); Mean Corpuscular Hgb Conc. 33.2 g/dL (32.0-36.0); Mean Corpuscular Volume 84.9 fL (80.0-100.0); Monocytes # (auto) 0.6 10 ^3/uL (0-1.3); Monocytes % (auto) 5.4 % (0.0-12.0); Neutrophils # (auto) 9.2 10 ^3/uL (1.6-8.6); Neutrophils % (auto) 84.1 % (37.0-80.0); Nucleated Red Blood Cells % 0.1 %; Red Blood Cells 4.32 10^6/uL (4.5-5.90); Red Cell Distribution Width 14.9 % (11.8-14.3)
[2021-03-20 04:47] LABS: Albumin 2.8 g/dL (3.4-5.0); Calcium 8.2 mg/dL (8.5-10.1)
[2021-03-20 04:55] LABS: BUN/Creatinine Ratio 60.5; Bilirubin, Total 0.4 mg/dL (0.2-1.0); Magnesium 3.2 mg/dL (1.6-2.6); Phosphorus 3.5 mg/dL (2.5-4.90); Pre Albumin 33.8 mg/dL (20.0-40.0); Total Protein 6.6 g/dL (6.4-8.2)
[2021-03-20] MEDS: METOCLOPRAMIDE HCL 5MG/ml INJ 2ml VIAL IV SCH ×3 (06:00→21:52)
[2021-03-20] MEDS: FUROSEMIDE 40 MG/4 ML VIAL IV SCH ×2 (06:00→18:00)
[2021-03-20] MEDS: cefTRIAXone 1GM/50ML D5W 50 ML IV SCH (07:52)
[2021-03-20] MEDS: PANTOPRAZOLE 40 MG/10 ML VIAL INJ IV SCH (07:52)
[2021-03-20] MEDS: ZINC SULFATE 220mg CAP or TAB PO SCH (07:53)
[2021-03-20] MEDS: MULTIPLE VITAMIN TAB PO SCH (07:53)
[2021-03-20] MEDS: CHOLECALCIFEROL (VITD3) 2,000 UNIT CAP/TAB PO SCH (07:53)
[2021-03-20] MEDS: ASCORBIC ACID 1,000 MG TAB PO SCH (07:53)
[2021-03-20] MEDS: QUEtiapine FUMARATE 25 MG TAB PO SCH ×2 (07:53→21:53)
[2021-03-20] MEDS: ROCURONIUM BROMIDE 1,000 MG in D5W 5% 150 ML IV SCH (07:54)
[2021-03-20] MEDS: ALBUTEROL SULF 2.5 MG/0.5ML(0.5%) NEB SOLN NEB PRN ×2 (10:53→19:02)
[2021-03-20] MEDS: BUDESONIDE (INHALATION) 0.5 MG/2 ML NEB NEB SCH ×2 (10:53→19:02)
[2021-03-20] MEDS: clonazePAM 0.5 MG TAB PO SCH ×2 (12:25→21:52)
[2021-03-20] MEDS: MIDAZOLAM DRIP 50 mg/50mL 50 ML IV SCH (13:55)
[2021-03-20] MEDS: fentaNYL Drip 2500mCg/250mlNS 250 ML IV SCH (14:11)
[2021-03-20] MEDS ORDERED: LACTULOSE 20Gm/30ML SOLN PO PRN (16:00)
[2021-03-20] MEDS ORDERED: TPN PER PHARMACY IV NR ×9 (20:00)
[2021-03-20] MEDS: ENOXAPARIN SOD 100 MG/1 ML SYRINGE SC SCH (21:53)
[2021-03-20] MEDS: ENOXAPARIN SOD 30 MG/0.3 ML SYRINGE SC SCH (21:53)
[2021-03-20] MEDS: NOREPINEPHRINE 8 MG/250ML KIT 250 ML IV SCH (22:45)
[2021-03-21] VITALS (102 sets, daily range): BP systolic 94–141; BP diastolic 47–89
[2021-03-21] MEDS: ACCU-CHEK COMFORT CURVE STRIP VI SCH ×3 (00:24→12:00)
[2021-03-21] MEDS: InsuLIN REG 1unit/0.01ml Soln (100units/ml) SC SCH ×3 (00:25→12:00)
[2021-03-21] MEDS: PROPOFOL 100 ML IV SCH ×4 (00:31→23:37)
[2021-03-21] MEDS: ROCURONIUM BROMIDE 1,000 MG in D5W 5% 150 ML IV SCH ×2 (04:05→20:42)
[2021-03-21] MEDS: ALBUTEROL SULF 2.5 MG/0.5ML(0.5%) NEB SOLN NEB PRN ×2 (06:23→19:42)
[2021-03-21] MEDS: BUDESONIDE (INHALATION) 0.5 MG/2 ML NEB NEB SCH ×2 (06:23→19:42)
[2021-03-21] MEDS: METOCLOPRAMIDE HCL 5MG/ml INJ 2ml VIAL IV SCH ×3 (06:36→22:21)
[2021-03-21] MEDS: FUROSEMIDE 40 MG/4 ML VIAL IV SCH ×2 (06:36→10:00)
[2021-03-21 08:02] LABS: Potassium 3.8 mmol/L (3.5-5.1)
[2021-03-21 08:10] LABS: Albumin 2.9 g/dL (3.4-5.0); Bilirubin, Total 0.6 mg/dL (0.2-1.0); Calcium 8.2 mg/dL (8.5-10.1); Magnesium 3.1 mg/dL (1.6-2.6); Phosphorus 4.6 mg/dL (2.5-4.90); Total Protein 6.8 g/dL (6.4-8.2)
[2021-03-21] MEDS: cefTRIAXone 1GM/50ML D5W 50 ML IV SCH (09:00)
[2021-03-21] MEDS: PANTOPRAZOLE 40 MG/10 ML VIAL INJ IV SCH (10:00)
[2021-03-21] MEDS: QUEtiapine FUMARATE 25 MG TAB PO SCH ×2 (10:00→22:22)
[2021-03-21] MEDS: CHOLECALCIFEROL (VITD3) 2,000 UNIT CAP/TAB PO SCH (10:00)
[2021-03-21] MEDS: MULTIPLE VITAMIN TAB PO SCH (10:00)
[2021-03-21] MEDS: ENOXAPARIN SOD 100 MG/1 ML SYRINGE SC SCH ×2 (10:00→22:20)
[2021-03-21] MEDS: clonazePAM 0.5 MG TAB PO SCH ×2 (10:00→22:21)
[2021-03-21] MEDS: ZINC SULFATE 220mg CAP or TAB PO SCH (10:00)
[2021-03-21] MEDS: ENOXAPARIN SOD 30 MG/0.3 ML SYRINGE SC SCH ×2 (10:00→22:21)
[2021-03-21] MEDS: ASCORBIC ACID 1,000 MG TAB PO SCH (10:00)
[2021-03-21] MEDS: fentaNYL Drip 2500mCg/250mlNS 250 ML IV SCH ×2 (13:45→23:58)
[2021-03-21] MEDS ORDERED: TPN PER PHARMACY IV NR ×9 (20:00)
[2021-03-21] MEDS: MIDAZOLAM DRIP 50 mg/50mL 50 ML IV SCH (21:51)
[2021-03-21] MEDS: DexAMETHasone SOD PHOS 10MG/1ML VIAL INJ IV SCH (22:21)
[2021-03-21] MEDS: NOREPINEPHRINE 8 MG/250ML KIT 250 ML IV SCH (22:45)
[2021-03-22] VITALS (105 sets, daily range): BP systolic 92–130; BP diastolic 17–82
[2021-03-22] MEDS: PROPOFOL 100 ML IV SCH ×8 (01:50→22:34)
[2021-03-22] MEDS: MIDAZOLAM DRIP 50 mg/50mL 50 ML IV SCH ×5 (02:15→23:38)
[2021-03-22] MEDS: ACCU-CHEK COMFORT CURVE STRIP VI SCH ×5 (05:24→23:57)
[2021-03-22] MEDS: InsuLIN REG 1unit/0.01ml Soln (100units/ml) SC SCH ×5 (05:24→23:57)
[2021-03-22 05:58] LABS: Albumin 2.8 g/dL (3.4-5.0); Calcium 8.5 mg/dL (8.5-10.1); Potassium 4.1 mmol/L (3.5-5.1)
[2021-03-22] MEDS: METOCLOPRAMIDE HCL 5MG/ml INJ 2ml VIAL IV SCH ×3 (06:00→21:45)
[2021-03-22 06:02] LABS: BUN/Creatinine Ratio 52.3; Magnesium 2.2 mg/dL (1.6-2.6)
[2021-03-22 06:04] LABS: Bilirubin, Total 0.6 mg/dL (0.2-1.0); Phosphorus 3.5 mg/dL (2.5-4.90); Total Protein 6.7 g/dL (6.4-8.2)
[2021-03-22] MEDS: ALBUTEROL SULF 2.5 MG/0.5ML(0.5%) NEB SOLN NEB PRN ×2 (06:36→18:37)
[2021-03-22] MEDS: BUDESONIDE (INHALATION) 0.5 MG/2 ML NEB NEB SCH ×2 (06:36→18:37)
[2021-03-22] MEDS: cefTRIAXone 1GM/50ML D5W 50 ML IV SCH (09:00)
[2021-03-22] MEDS: FUROSEMIDE 40 MG/4 ML VIAL IV SCH (10:03)
[2021-03-22] MEDS: clonazePAM 0.5 MG TAB PO SCH ×2 (10:03→21:46)
[2021-03-22] MEDS: ZINC SULFATE 220mg CAP or TAB PO SCH (10:03)
[2021-03-22] MEDS: PANTOPRAZOLE 40 MG/10 ML VIAL INJ IV SCH (10:03)
[2021-03-22] MEDS: ASCORBIC ACID 1,000 MG TAB PO SCH (10:03)
[2021-03-22] MEDS: CHOLECALCIFEROL (VITD3) 2,000 UNIT CAP/TAB PO SCH (10:03)
[2021-03-22] MEDS: ENOXAPARIN SOD 100 MG/1 ML SYRINGE SC SCH ×2 (10:03→21:45)
[2021-03-22] MEDS: QUEtiapine FUMARATE 25 MG TAB PO SCH ×2 (10:03→21:46)
[2021-03-22] MEDS: ENOXAPARIN SOD 30 MG/0.3 ML SYRINGE SC SCH ×2 (10:03→21:45)
[2021-03-22] MEDS: MULTIPLE VITAMIN TAB PO SCH (10:03)
[2021-03-22] MEDS: ROCURONIUM BROMIDE 1,000 MG in D5W 5% 150 ML IV SCH (13:19)
[2021-03-22] MEDS: fentaNYL Drip 2500mCg/250mlNS 250 ML IV SCH (16:00)
[2021-03-22] MEDS ORDERED: TPN PER PHARMACY IV NR ×10 (20:00)
[2021-03-22] MEDS: DexAMETHasone SOD PHOS 10MG/1ML VIAL INJ IV SCH (21:45)
[2021-03-22] MEDS: NOREPINEPHRINE 8 MG/250ML KIT 250 ML IV SCH (22:45)
[2021-03-23] VITALS (103 sets, daily range): BP systolic 89–149; BP diastolic 50–96
[2021-03-23] MEDS: PROPOFOL 100 ML IV SCH ×8 (02:07→22:00)
[2021-03-23] MEDS: MIDAZOLAM DRIP 50 mg/50mL 50 ML IV SCH ×6 (02:49→20:39)
[2021-03-23 05:51] LABS: Hematocrit 39.1 % (41.0-53.0); Hemoglobin 12.8 g/dL (13.5-17.5); Mean Corpuscular Hemoglobin 27.8 pg (28.0-32.0); Mean Corpuscular Hgb Conc. 32.8 g/dL (32.0-36.0); Mean Corpuscular Volume 84.8 fL (80.0-100.0); Red Blood Cells 4.61 10^6/uL (4.5-5.90); Red Cell Distribution Width 15.6 % (11.8-14.3); White Blood Cell 12.1 10^3/uL (4.4-10.8)
[2021-03-23] MEDS: ROCURONIUM BROMIDE 1,000 MG in D5W 5% 150 ML IV SCH ×2 (05:54→22:33)
[2021-03-23] MEDS: fentaNYL Drip 2500mCg/250mlNS 250 ML IV SCH ×2 (05:54→15:01)
[2021-03-23] MEDS: METOCLOPRAMIDE HCL 5MG/ml INJ 2ml VIAL IV SCH ×3 (05:56→22:00)
[2021-03-23] MEDS: ACCU-CHEK COMFORT CURVE STRIP VI SCH ×3 (05:58→17:52)
[2021-03-23] MEDS: InsuLIN REG 1unit/0.01ml Soln (100units/ml) SC SCH ×3 (06:01→17:52)
[2021-03-23 06:14] LABS: Calcium 8.5 mg/dL (8.5-10.1); Potassium 4.6 mmol/L (3.5-5.1)
[2021-03-23 06:18] LABS: Albumin 2.8 g/dL (3.4-5.0); BUN/Creatinine Ratio 57.5; Magnesium 2.3 mg/dL (1.6-2.6)
[2021-03-23 06:20] LABS: Bilirubin, Total 0.5 mg/dL (0.2-1.0); Phosphorus 3.4 mg/dL (2.5-4.90); Total Protein 6.9 g/dL (6.4-8.2)
[2021-03-23 06:27] LABS: Basophils % (manual) 0 (0.0-2.0); Blast Cells 0; Eosinophils % (manual) 0 (0-7); Metamyelocytes % 0; Myelocytes % 0; Promyelocytes % 0; Reactive Lymphocytes 0
[2021-03-23] MEDS: cefTRIAXone 1GM/50ML D5W 50 ML IV SCH (08:34)
[2021-03-23 09:27] LABS: Band Neutrophils % (manual) 2; Lymphocytes % (manual) 8 (10.0-50.0); Monocytes % (manual) 4 (0-12)
[2021-03-23] MEDS: ALBUTEROL SULF 2.5 MG/0.5ML(0.5%) NEB SOLN NEB PRN ×2 (09:59→18:51)
[2021-03-23] MEDS: BUDESONIDE (INHALATION) 0.5 MG/2 ML NEB NEB SCH ×2 (09:59→18:51)
[2021-03-23] MEDS: FUROSEMIDE 40 MG/4 ML VIAL IV SCH (10:12)
[2021-03-23] MEDS: CHOLECALCIFEROL (VITD3) 2,000 UNIT CAP/TAB PO SCH (10:12)
[2021-03-23] MEDS: ZINC SULFATE 220mg CAP or TAB PO SCH (10:12)
[2021-03-23] MEDS: ASCORBIC ACID 1,000 MG TAB PO SCH (10:12)
[2021-03-23] MEDS: clonazePAM 0.5 MG TAB PO SCH ×2 (10:12→22:00)
[2021-03-23] MEDS: PANTOPRAZOLE 40 MG/10 ML VIAL INJ IV SCH (10:12)
[2021-03-23] MEDS: MULTIPLE VITAMIN TAB PO SCH (10:12)
[2021-03-23] MEDS: ENOXAPARIN SOD 100 MG/1 ML SYRINGE SC SCH ×2 (10:13→22:00)
[2021-03-23] MEDS: ENOXAPARIN SOD 30 MG/0.3 ML SYRINGE SC SCH ×2 (10:13→22:00)
[2021-03-23] MEDS: QUEtiapine FUMARATE 25 MG TAB PO SCH ×2 (10:13→22:00)
[2021-03-23] MEDS ORDERED: TPN PER PHARMACY IV NR ×11 (20:00)
[2021-03-23] MEDS: DexAMETHasone SOD PHOS 10MG/1ML VIAL INJ IV SCH (22:00)
[2021-03-23] MEDS: NOREPINEPHRINE 8 MG/250ML KIT 250 ML IV SCH (22:45)
[2021-03-24] VITALS (99 sets, daily range): BP systolic 86–153; BP diastolic 42–85
[2021-03-24] MEDS: PROPOFOL 100 ML IV SCH ×7 (01:00→22:38)
[2021-03-24] MEDS: MIDAZOLAM DRIP 50 mg/50mL 50 ML IV SCH ×3 (02:45→16:13)
[2021-03-24 05:03] LABS: Hematocrit 37.2 % (41.0-53.0); Hemoglobin 12.2 g/dL (13.5-17.5); Mean Corpuscular Hemoglobin 28.1 pg (28.0-32.0); Mean Corpuscular Hgb Conc. 32.8 g/dL (32.0-36.0); Mean Corpuscular Volume 85.8 fL (80.0-100.0); Red Blood Cells 4.34 10^6/uL (4.5-5.90); Red Cell Distribution Width 15.2 % (11.8-14.3); White Blood Cell 10.3 10^3/uL (4.4-10.8)
[2021-03-24 05:10] LABS: Basophils % (manual) 0 (0.0-2.0); Blast Cells 0; Metamyelocytes % 0; Promyelocytes % 0; Reactive Lymphocytes 0
[2021-03-24 05:11] LABS: Albumin 2.8 g/dL (3.4-5.0); Calcium 8.4 mg/dL (8.5-10.1); Magnesium 3.2 mg/dL (1.6-2.6); Potassium 4.2 mmol/L (3.5-5.1)
[2021-03-24 05:16] LABS: BUN/Creatinine Ratio 71.4; Bilirubin, Total 0.4 mg/dL (0.2-1.0); Phosphorus 3.8 mg/dL (2.5-4.90); Total Protein 6.7 g/dL (6.4-8.2)
[2021-03-24] MEDS: METOCLOPRAMIDE HCL 5MG/ml INJ 2ml VIAL IV SCH ×3 (05:18→21:26)
[2021-03-24] MEDS: fentaNYL Drip 2500mCg/250mlNS 250 ML IV SCH (05:19)
[2021-03-24] MEDS: ACCU-CHEK COMFORT CURVE STRIP VI SCH ×5 (05:37→23:30)
[2021-03-24] MEDS: InsuLIN REG 1unit/0.01ml Soln (100units/ml) SC SCH ×5 (05:37→23:40)
[2021-03-24 07:03] LABS: Band Neutrophils % (manual) 2; Eosinophils % (manual) 1 (0-7); Lymphocytes % (manual) 9 (10.0-50.0); Monocytes % (manual) 4 (0-12); Myelocytes % 1
[2021-03-24] MEDS: cefTRIAXone 1GM/50ML D5W 50 ML IV SCH (09:19)
[2021-03-24] MEDS: PANTOPRAZOLE 40 MG/10 ML VIAL INJ IV SCH (09:22)
[2021-03-24] MEDS: MULTIPLE VITAMIN TAB PO SCH (09:22)
[2021-03-24] MEDS: ZINC SULFATE 220mg CAP or TAB PO SCH (09:22)
[2021-03-24] MEDS: FUROSEMIDE 40 MG/4 ML VIAL IV SCH (09:26)
[2021-03-24] MEDS: QUEtiapine FUMARATE 25 MG TAB PO SCH ×2 (09:27→21:26)
[2021-03-24] MEDS: ENOXAPARIN SOD 100 MG/1 ML SYRINGE SC SCH ×2 (09:27→21:26)
[2021-03-24] MEDS: ENOXAPARIN SOD 30 MG/0.3 ML SYRINGE SC SCH ×2 (09:30→21:26)
[2021-03-24] MEDS: clonazePAM 0.5 MG TAB NG SCH ×2 (09:30→21:26)
[2021-03-24] MEDS: ASCORBIC ACID 1,000 MG TAB PO SCH (09:31)
[2021-03-24] MEDS: CHOLECALCIFEROL (VITD3) 2,000 UNIT CAP/TAB PO SCH (09:31)
[2021-03-24] MEDS: ROCURONIUM BROMIDE 1,000 MG in D5W 5% 150 ML IV SCH (15:10)
[2021-03-24] MEDS: ALBUTEROL SULF 2.5 MG/0.5ML(0.5%) NEB SOLN NEB PRN (19:17)
[2021-03-24] MEDS: BUDESONIDE (INHALATION) 0.5 MG/2 ML NEB NEB SCH (19:17)
[2021-03-24] MEDS ORDERED: TPN PER PHARMACY IV NR ×10 (20:00)
[2021-03-24] MEDS: ACETAMINOPHEN 500 MG TAB PO PRN (20:40)
[2021-03-24] MEDS: DexAMETHasone SOD PHOS 10MG/1ML VIAL INJ IV SCH (21:26)
[2021-03-24] MEDS: NOREPINEPHRINE 8 MG/250ML KIT 250 ML IV SCH (22:45)
[2021-03-25] VITALS (99 sets, daily range): BP systolic 84–137; BP diastolic 49–92
[2021-03-25] MEDS: fentaNYL Drip 2500mCg/250mlNS 250 ML IV SCH ×2 (00:15→14:55)
[2021-03-25] MEDS: PROPOFOL 100 ML IV SCH ×4 (01:17→16:54)
[2021-03-25] MEDS: MIDAZOLAM DRIP 50 mg/50mL 50 ML IV SCH ×4 (04:15→16:55)
[2021-03-25 05:02] LABS: Potassium 4.1 mmol/L (3.5-5.1)
[2021-03-25 05:07] LABS: Albumin 2.8 g/dL (3.4-5.0); Bilirubin, Total 0.5 mg/dL (0.2-1.0); Calcium 8.5 mg/dL (8.5-10.1); Magnesium 2.5 mg/dL (1.6-2.6); Total Protein 6.7 g/dL (6.4-8.2)
[2021-03-25 05:39] LABS: BUN/Creatinine Ratio 60.5; Phosphorus 3.7 mg/dL (2.5-4.90)
[2021-03-25] MEDS: ACCU-CHEK COMFORT CURVE STRIP VI SCH ×4 (05:50→23:49)
[2021-03-25] MEDS: METOCLOPRAMIDE HCL 5MG/ml INJ 2ml VIAL IV SCH ×3 (05:50→21:02)
[2021-03-25] MEDS: InsuLIN REG 1unit/0.01ml Soln (100units/ml) SC SCH ×4 (05:50→23:35)
[2021-03-25] MEDS: ALBUTEROL SULF 2.5 MG/0.5ML(0.5%) NEB SOLN NEB PRN ×2 (06:43→19:11)
[2021-03-25] MEDS: BUDESONIDE (INHALATION) 0.5 MG/2 ML NEB NEB SCH ×2 (06:43→19:11)
[2021-03-25] MEDS: ROCURONIUM BROMIDE 1,000 MG in D5W 5% 150 ML IV SCH ×2 (07:35→22:57)
[2021-03-25] MEDS: cefTRIAXone 1GM/50ML D5W 50 ML IV SCH (08:15)
[2021-03-25] MEDS: FUROSEMIDE 40 MG/4 ML VIAL IV SCH (08:17)
[2021-03-25] MEDS: PANTOPRAZOLE 40 MG/10 ML VIAL INJ IV SCH (08:17)
[2021-03-25] MEDS: ASCORBIC ACID 1,000 MG TAB PO SCH (08:18)
[2021-03-25] MEDS: CHOLECALCIFEROL (VITD3) 2,000 UNIT CAP/TAB PO SCH (08:18)
[2021-03-25] MEDS: ENOXAPARIN SOD 100 MG/1 ML SYRINGE SC SCH ×2 (08:18→21:02)
[2021-03-25] MEDS: ZINC SULFATE 220mg CAP or TAB PO SCH (08:18)
[2021-03-25] MEDS: MULTIPLE VITAMIN TAB PO SCH (08:18)
[2021-03-25] MEDS: ENOXAPARIN SOD 30 MG/0.3 ML SYRINGE SC SCH ×2 (08:19→21:03)
[2021-03-25] MEDS: clonazePAM 0.5 MG TAB NG SCH ×2 (08:24→21:02)
[2021-03-25] MEDS: QUEtiapine FUMARATE 25 MG TAB PO SCH ×2 (08:25→21:02)
[2021-03-25] MEDS: ROCURONIUM 10MG/ML 10ML VIAL IV PRN (16:55)
[2021-03-25] MEDS: ACETAMINOPHEN 500 MG TAB PO PRN (16:56)
[2021-03-25] MEDS ORDERED: TPN PER PHARMACY IV NR ×11 (20:00)
[2021-03-25] MEDS ORDERED: VANCOMYCIN 1GM/250ML 250 ML IV ONE (20:30)
[2021-03-25] MEDS ORDERED: VANCOMYCIN PER PHARMACY 0 MG IV SCH (20:30)
[2021-03-25] MEDS: DexAMETHasone SOD PHOS 10MG/1ML VIAL INJ IV SCH (21:01)
[2021-03-25] MEDS: NOREPINEPHRINE 8 MG/250ML KIT 250 ML IV SCH (21:03)
[2021-03-25] MEDS: MEROPENEM 1GM IVPB 100 ML IV SCH (22:17)
[2021-03-25 22:27] LABS: Hematocrit 38.1 % (41.0-53.0); Hemoglobin 12.5 g/dL (13.5-17.5); Mean Corpuscular Hemoglobin 27.9 pg (28.0-32.0); Mean Corpuscular Hgb Conc. 32.8 g/dL (32.0-36.0); Red Blood Cells 4.48 10^6/uL (4.5-5.90); Red Cell Distribution Width 15.2 % (11.8-14.3); White Blood Cell 12.2 10^3/uL (4.4-10.8)
[2021-03-25 22:29] LABS: Basophils % (manual) 0 (0.0-2.0); Blast Cells 0; Metamyelocytes % 0; Promyelocytes % 0; Reactive Lymphocytes 0
[2021-03-25 22:53] LABS: Band Neutrophils % (manual) 5; Eosinophils % (manual) 1 (0-7); Lymphocytes % (manual) 17 (10.0-50.0); Monocytes % (manual) 6 (0-12); Myelocytes % 1
[2021-03-26] VITALS (99 sets, daily range): BP systolic 86–134; BP diastolic 48–83
[2021-03-26] MEDS: MEROPENEM 1GM IVPB 100 ML IV SCH ×4 (01:50→21:14)
[2021-03-26 04:12] LABS: Basophils # (auto) 0 10 ^3/uL (0-0.2); Basophils % (auto) 0.4 % (0.0-2.0); Eosinophils # (auto) 0.2 10 ^3/uL (0-0.8); Eosinophils % (auto) 1.4 % (0.0-7.0); Lymphocytes # (auto) 0.4 10 ^3/uL (0.4-5.4); Lymphocytes % (auto) 3.9 % (10.0-50.0); Mean Corpuscular Hemoglobin 27.7 pg (28.0-32.0); Mean Corpuscular Hgb Conc. 32.4 g/dL (32.0-36.0); Mean Corpuscular Volume 85.4 fL (80.0-100.0); Monocytes # (auto) 0.4 10 ^3/uL (0-1.3); Monocytes % (auto) 3.9 % (0.0-12.0); Neutrophils # (auto) 10.1 10 ^3/uL (1.6-8.6); Neutrophils % (auto) 90.4 % (37.0-80.0); Red Blood Cells 4.69 10^6/uL (4.5-5.90); Red Cell Distribution Width 15.4 % (11.8-14.3); White Blood Cell 11.1 10^3/uL (4.4-10.8)
[2021-03-26] MEDS: VANCOMYCIN 1GM/250ML 250 ML IV SCH ×3 (04:18→21:13)
[2021-03-26 04:51] LABS: BUN/Creatinine Ratio 48.7; Potassium 4.2 mmol/L (3.5-5.1)
[2021-03-26 04:52] LABS: Albumin 2.9 g/dL (3.4-5.0); Calcium 8.8 mg/dL (8.5-10.1)
[2021-03-26 04:55] LABS: Bilirubin, Total 0.6 mg/dL (0.2-1.0); Phosphorus 3.5 mg/dL (2.5-4.90); Total Protein 7.3 g/dL (6.4-8.2)
[2021-03-26] MEDS: METOCLOPRAMIDE HCL 5MG/ml INJ 2ml VIAL IV SCH ×3 (05:36→21:14)
[2021-03-26] MEDS: ACCU-CHEK COMFORT CURVE STRIP VI SCH ×3 (05:37→16:26)
[2021-03-26] MEDS: InsuLIN REG 1unit/0.01ml Soln (100units/ml) SC SCH ×3 (05:37→16:26)
[2021-03-26] MEDS: BUDESONIDE (INHALATION) 0.5 MG/2 ML NEB NEB SCH ×2 (07:15→18:51)
[2021-03-26] MEDS: ALBUTEROL SULF 2.5 MG/0.5ML(0.5%) NEB SOLN NEB PRN (07:15)
[2021-03-26] MEDS: FUROSEMIDE 40 MG/4 ML VIAL IV SCH (07:49)
[2021-03-26] MEDS: PANTOPRAZOLE 40 MG/10 ML VIAL INJ IV SCH (07:50)
[2021-03-26] MEDS: ENOXAPARIN SOD 30 MG/0.3 ML SYRINGE SC SCH ×2 (07:51→21:15)
[2021-03-26] MEDS: QUEtiapine FUMARATE 25 MG TAB PO SCH ×2 (07:51→21:15)
[2021-03-26] MEDS: MULTIPLE VITAMIN TAB PO SCH (07:51)
[2021-03-26] MEDS: ENOXAPARIN SOD 100 MG/1 ML SYRINGE SC SCH ×2 (07:51→21:15)
[2021-03-26] MEDS: ROCURONIUM BROMIDE 1,000 MG in D5W 5% 150 ML IV SCH (07:52)
[2021-03-26] MEDS: clonazePAM 0.5 MG TAB NG SCH ×2 (12:49→21:14)
[2021-03-26] MEDS: MIDAZOLAM DRIP 50 mg/50mL 50 ML IV SCH (14:00)
[2021-03-26] MEDS: fentaNYL Drip 2500mCg/250mlNS 250 ML IV SCH (16:26)
[2021-03-26] MEDS ORDERED: TPN PER PHARMACY IV NR ×9 (20:00)
[2021-03-26] MEDS: DexAMETHasone SOD PHOS 10MG/1ML VIAL INJ IV SCH (21:13)
[2021-03-26] MEDS: NOREPINEPHRINE 8 MG/250ML KIT 250 ML IV SCH (22:45)
[2021-03-26] MEDS: PROPOFOL 100 ML IV SCH (23:08)
[2021-03-27] VITALS (96 sets, daily range): BP systolic 93–144; BP diastolic 52–88
[2021-03-27] MEDS: InsuLIN REG 1unit/0.01ml Soln (100units/ml) SC SCH ×4 (00:27→18:00)
[2021-03-27] MEDS: ACCU-CHEK COMFORT CURVE STRIP VI SCH ×4 (00:28→18:09)
[2021-03-27] MEDS: VANCOMYCIN 1GM/250ML 250 ML IV SCH ×4 (04:07→22:58)
[2021-03-27] MEDS: METOCLOPRAMIDE HCL 5MG/ml INJ 2ml VIAL IV SCH ×3 (05:03→21:16)
[2021-03-27] MEDS: MEROPENEM 1GM IVPB 100 ML IV SCH ×3 (05:04→21:16)
[2021-03-27] MEDS: BUDESONIDE (INHALATION) 0.5 MG/2 ML NEB NEB SCH ×2 (06:40→22:01)
[2021-03-27] MEDS: ALBUTEROL SULF 2.5 MG/0.5ML(0.5%) NEB SOLN NEB PRN (09:29)
[2021-03-27] MEDS: ROCURONIUM BROMIDE 1,000 MG in D5W 5% 150 ML IV SCH (09:38)
[2021-03-27 09:52] LABS: Basophils # (auto) 0.1 10 ^3/uL (0-0.2); Eosinophils # (auto) 0 10 ^3/uL (0-0.8); Eosinophils % (auto) 0.4 % (0.0-7.0); Hemoglobin 11.7 g/dL (13.5-17.5); Lymphocytes % (auto) 12.6 % (10.0-50.0); Mean Corpuscular Hemoglobin 28.6 pg (28.0-32.0); Mean Corpuscular Hgb Conc. 33.5 g/dL (32.0-36.0); Mean Corpuscular Volume 85.2 fL (80.0-100.0); Monocytes # (auto) 0.7 10 ^3/uL (0-1.3); Monocytes % (auto) 8.3 % (0.0-12.0); Neutrophils # (auto) 6.4 10 ^3/uL (1.6-8.6); Neutrophils % (auto) 77.7 % (37.0-80.0); Red Cell Distribution Width 15.1 % (11.8-14.3); White Blood Cell 8.2 10^3/uL (4.4-10.8)
[2021-03-27 10:06] LABS: Albumin 2.6 g/dL (3.4-5.0); Calcium 8.3 mg/dL (8.5-10.1); Potassium 3.8 mmol/L (3.5-5.1)
[2021-03-27] MEDS: FUROSEMIDE 40 MG/4 ML VIAL IV SCH (10:06)
[2021-03-27] MEDS: ENOXAPARIN SOD 30 MG/0.3 ML SYRINGE SC SCH ×2 (10:07→21:18)
[2021-03-27] MEDS: clonazePAM 0.5 MG TAB NG SCH ×2 (10:07→21:17)
[2021-03-27] MEDS: MULTIPLE VITAMIN TAB PO SCH (10:07)
[2021-03-27] MEDS: PANTOPRAZOLE 40 MG/10 ML VIAL INJ IV SCH (10:07)
[2021-03-27] MEDS: QUEtiapine FUMARATE 25 MG TAB PO SCH ×2 (10:07→21:17)
[2021-03-27] MEDS: ENOXAPARIN SOD 100 MG/1 ML SYRINGE SC SCH ×2 (10:07→21:17)
[2021-03-27 10:10] LABS: BUN/Creatinine Ratio 72.7; Bilirubin, Total 0.5 mg/dL (0.2-1.0); Phosphorus 2.4 mg/dL (2.5-4.90); Total Protein 6.5 g/dL (6.4-8.2)
[2021-03-27] MEDS: fentaNYL Drip 2500mCg/250mlNS 250 ML IV SCH (16:09)
[2021-03-27] MEDS ORDERED: TPN PER PHARMACY IV NR ×10 (20:00)
[2021-03-27] MEDS: MIDAZOLAM DRIP 50 mg/50mL 50 ML IV SCH (21:15)
[2021-03-27] MEDS: DexAMETHasone SOD PHOS 10MG/1ML VIAL INJ IV SCH (21:16)
[2021-03-27] MEDS: NOREPINEPHRINE 8 MG/250ML KIT 250 ML IV SCH (22:45)
[2021-03-27] MEDS: PROPOFOL 100 ML IV SCH (22:46)
[2021-03-28] VITALS (93 sets, daily range): BP systolic 88–123; BP diastolic 47–78
[2021-03-28] MEDS: ACCU-CHEK COMFORT CURVE STRIP VI SCH ×5 (00:18→23:45)
[2021-03-28] MEDS: ROCURONIUM BROMIDE 1,000 MG in D5W 5% 150 ML IV SCH ×2 (00:19→18:52)
[2021-03-28 04:31] LABS: Basophils # (auto) 0.1 10 ^3/uL (0-0.2); Eosinophils # (auto) 0.1 10 ^3/uL (0-0.8); Eosinophils % (auto) 0.8 % (0.0-7.0); Hematocrit 35.9 % (41.0-53.0); Lymphocytes # (auto) 0.9 10 ^3/uL (0.4-5.4); Lymphocytes % (auto) 10.9 % (10.0-50.0); Mean Corpuscular Hemoglobin 28.4 pg (28.0-32.0); Mean Corpuscular Hgb Conc. 33.3 g/dL (32.0-36.0); Mean Corpuscular Volume 85.2 fL (80.0-100.0); Monocytes # (auto) 0.3 10 ^3/uL (0-1.3); Monocytes % (auto) 3.8 % (0.0-12.0); Neutrophils # (auto) 7.2 10 ^3/uL (1.6-8.6); Neutrophils % (auto) 83.5 % (37.0-80.0); Red Blood Cells 4.22 10^6/uL (4.5-5.90); Red Cell Distribution Width 15.4 % (11.8-14.3); White Blood Cell 8.7 10^3/uL (4.4-10.8)
[2021-03-28] MEDS: MEROPENEM 1GM IVPB 100 ML IV SCH ×3 (05:03→21:12)
[2021-03-28] MEDS: METOCLOPRAMIDE HCL 5MG/ml INJ 2ml VIAL IV SCH ×3 (05:03→21:12)
[2021-03-28 05:06] LABS: Albumin 2.7 g/dL (3.4-5.0); Calcium 8.4 mg/dL (8.5-10.1); Potassium 3.8 mmol/L (3.5-5.1)
[2021-03-28 05:09] LABS: BUN/Creatinine Ratio 59.4; Bilirubin, Total 0.4 mg/dL (0.2-1.0); Phosphorus 3.1 mg/dL (2.5-4.90); Total Protein 6.5 g/dL (6.4-8.2)
[2021-03-28] MEDS: InsuLIN REG 1unit/0.01ml Soln (100units/ml) SC SCH ×5 (05:16→23:45)
[2021-03-28] MEDS: VANCOMYCIN 1GM/250ML 250 ML IV SCH ×2 (05:16→11:00)
[2021-03-28] MEDS: BUDESONIDE (INHALATION) 0.5 MG/2 ML NEB NEB SCH ×2 (06:04→22:08)
[2021-03-28] MEDS: ALBUTEROL SULF 2.5 MG/0.5ML(0.5%) NEB SOLN NEB PRN ×2 (06:04→22:08)
[2021-03-28] MEDS: MULTIPLE VITAMIN TAB PO SCH (10:00)
[2021-03-28] MEDS: ENOXAPARIN SOD 30 MG/0.3 ML SYRINGE SC SCH ×2 (10:00→21:13)
[2021-03-28] MEDS: PANTOPRAZOLE 40 MG/10 ML VIAL INJ IV SCH (10:00)
[2021-03-28] MEDS: clonazePAM 0.5 MG TAB NG SCH ×2 (10:00→21:12)
[2021-03-28] MEDS: QUEtiapine FUMARATE 25 MG TAB PO SCH ×2 (10:00→21:12)
[2021-03-28] MEDS: ENOXAPARIN SOD 100 MG/1 ML SYRINGE SC SCH ×2 (10:00→21:13)
[2021-03-28] MEDS: FUROSEMIDE 40 MG/4 ML VIAL IV SCH (10:00)
[2021-03-28] MEDS: fentaNYL Drip 2500mCg/250mlNS 250 ML IV SCH (16:00)
[2021-03-28] MEDS ORDERED: TPN PER PHARMACY IV NR ×9 (20:00)
[2021-03-28] MEDS ORDERED: VANCOMYCIN 1GM/250ML 250 ML IV ONE (20:03)
[2021-03-28] MEDS: MIDAZOLAM DRIP 50 mg/50mL 50 ML IV SCH (20:59)
[2021-03-28] MEDS: DexAMETHasone SOD PHOS 10MG/1ML VIAL INJ IV SCH (21:11)
[2021-03-28] MEDS: NOREPINEPHRINE 8 MG/250ML KIT 250 ML IV SCH (21:13)
[2021-03-28] MEDS: PROPOFOL 100 ML IV SCH (23:16)
[2021-03-29] VITALS (91 sets, daily range): BP systolic 93–114; BP diastolic 51–77
[2021-03-29 04:38] LABS: Albumin 2.8 g/dL (3.4-5.0); Calcium 8.5 mg/dL (8.5-10.1); Potassium 4.2 mmol/L (3.5-5.1)
[2021-03-29 04:43] LABS: BUN/Creatinine Ratio 71.4; Bilirubin, Total 0.5 mg/dL (0.2-1.0); Phosphorus 3.5 mg/dL (2.5-4.90); Total Protein 6.7 g/dL (6.4-8.2)
[2021-03-29] MEDS: MEROPENEM 1GM IVPB 100 ML IV SCH ×3 (05:48→21:40)
[2021-03-29] MEDS: InsuLIN REG 1unit/0.01ml Soln (100units/ml) SC SCH ×3 (05:49→18:00)
[2021-03-29] MEDS: METOCLOPRAMIDE HCL 5MG/ml INJ 2ml VIAL IV SCH ×3 (05:49→21:38)
[2021-03-29] MEDS: ACCU-CHEK COMFORT CURVE STRIP VI SCH ×3 (06:00→18:00)
[2021-03-29] MEDS: QUEtiapine FUMARATE 25 MG TAB PO SCH ×2 (10:00→21:39)
[2021-03-29] MEDS: FUROSEMIDE 40 MG/4 ML VIAL IV SCH (10:00)
[2021-03-29] MEDS: ENOXAPARIN SOD 30 MG/0.3 ML SYRINGE SC SCH ×2 (10:00→21:39)
[2021-03-29] MEDS: clonazePAM 0.5 MG TAB NG SCH ×2 (10:00→21:38)
[2021-03-29] MEDS: ENOXAPARIN SOD 100 MG/1 ML SYRINGE SC SCH ×2 (10:00→21:39)
[2021-03-29] MEDS: MULTIPLE VITAMIN TAB PO SCH (10:00)
[2021-03-29] MEDS: PANTOPRAZOLE 40 MG/10 ML VIAL INJ IV SCH (10:00)
[2021-03-29] MEDS: ALBUTEROL SULF 2.5 MG/0.5ML(0.5%) NEB SOLN NEB PRN (10:29)
[2021-03-29] MEDS: BUDESONIDE (INHALATION) 0.5 MG/2 ML NEB NEB SCH ×2 (10:29→22:12)
[2021-03-29] MEDS: ROCURONIUM BROMIDE 1,000 MG in D5W 5% 150 ML IV SCH (11:29)
[2021-03-29] MEDS: fentaNYL Drip 2500mCg/250mlNS 250 ML IV SCH (16:00)
[2021-03-29] MEDS ORDERED: TPN PER PHARMACY IV NR ×8 (20:00)
[2021-03-29] MEDS: MIDAZOLAM DRIP 50 mg/50mL 50 ML IV SCH (20:29)
[2021-03-29] MEDS: DexAMETHasone SOD PHOS 10MG/1ML VIAL INJ IV SCH (21:38)
[2021-03-29] MEDS: PROPOFOL 100 ML IV SCH (22:42)
[2021-03-29] MEDS: NOREPINEPHRINE 8 MG/250ML KIT 250 ML IV SCH (22:42)
[2021-03-30] VITALS (82 sets, daily range): BP systolic 97–140; BP diastolic 52–72
[2021-03-30] MEDS: InsuLIN REG 1unit/0.01ml Soln (100units/ml) SC SCH ×4 (00:25→17:08)
[2021-03-30] MEDS: ACCU-CHEK COMFORT CURVE STRIP VI SCH ×4 (00:25→17:09)
[2021-03-30] MEDS: ROCURONIUM BROMIDE 1,000 MG in D5W 5% 150 ML IV SCH ×2 (01:25→20:21)
[2021-03-30 04:51] LABS: Albumin 2.8 g/dL (3.4-5.0); Calcium 8.4 mg/dL (8.5-10.1)
[2021-03-30 04:55] LABS: BUN/Creatinine Ratio 78.6; Bilirubin, Total 0.5 mg/dL (0.2-1.0); Phosphorus 3.8 mg/dL (2.5-4.90); Total Protein 6.2 g/dL (6.4-8.2)
[2021-03-30] MEDS: METOCLOPRAMIDE HCL 5MG/ml INJ 2ml VIAL IV SCH ×3 (05:54→21:38)
[2021-03-30] MEDS: MEROPENEM 1GM IVPB 100 ML IV SCH ×3 (05:54→21:37)
[2021-03-30] MEDS: fentaNYL Drip 2500mCg/250mlNS 250 ML IV SCH ×2 (08:36→23:03)
[2021-03-30] MEDS: PROPOFOL 100 ML IV SCH ×4 (08:37→19:15)
[2021-03-30] MEDS: clonazePAM 0.5 MG TAB NG SCH ×2 (09:16→21:38)
[2021-03-30] MEDS: PANTOPRAZOLE 40 MG/10 ML VIAL INJ IV SCH (09:16)
[2021-03-30] MEDS: FUROSEMIDE 40 MG/4 ML VIAL IV SCH (09:16)
[2021-03-30] MEDS: MIDAZOLAM DRIP 50 mg/50mL 50 ML IV SCH ×5 (09:17→23:04)
[2021-03-30] MEDS: MULTIPLE VITAMIN TAB PO SCH (09:17)
[2021-03-30] MEDS: ENOXAPARIN SOD 30 MG/0.3 ML SYRINGE SC SCH ×2 (09:17→21:39)
[2021-03-30] MEDS: QUEtiapine FUMARATE 25 MG TAB PO SCH ×2 (09:17→21:38)
[2021-03-30] MEDS: ENOXAPARIN SOD 100 MG/1 ML SYRINGE SC SCH ×2 (09:17→21:39)
[2021-03-30] MEDS: BUDESONIDE (INHALATION) 0.5 MG/2 ML NEB NEB SCH ×2 (11:09→22:38)
[2021-03-30] MEDS: ALBUTEROL SULF 2.5 MG/0.5ML(0.5%) NEB SOLN NEB PRN ×2 (11:09→22:37)
[2021-03-30 15:28] LABS: Basophils # (auto) 0.1 10 ^3/uL (0-0.2); Basophils % (auto) 1.1 % (0.0-2.0); Eosinophils # (auto) 0.1 10 ^3/uL (0-0.8); Eosinophils % (auto) 1.4 % (0.0-7.0); Hematocrit 33.6 % (41.0-53.0); Hemoglobin 11.2 g/dL (13.5-17.5); Lymphocytes # (auto) 2.8 10 ^3/uL (0.4-5.4); Lymphocytes % (auto) 28.3 % (10.0-50.0); Mean Corpuscular Hemoglobin 29.2 pg (28.0-32.0); Mean Corpuscular Hgb Conc. 33.5 g/dL (32.0-36.0); Mean Corpuscular Volume 87.2 fL (80.0-100.0); Monocytes # (auto) 0.8 10 ^3/uL (0-1.3); Neutrophils # (auto) 6.1 10 ^3/uL (1.6-8.6); Neutrophils % (auto) 61.2 % (37.0-80.0); Nucleated Red Blood Cells % 0.4 %; Red Blood Cells 3.85 10^6/uL (4.5-5.90); Red Cell Distribution Width 15.5 % (11.8-14.3)
[2021-03-30] MEDS: TPN PER PHARMACY IV NR ×10 (20:15)
[2021-03-30] MEDS: DexAMETHasone SOD PHOS 10MG/1ML VIAL INJ IV SCH (21:36)
[2021-03-30] MEDS: NOREPINEPHRINE 8 MG/250ML KIT 250 ML IV SCH (22:45)
[2021-03-31] VITALS (80 sets, daily range): BP systolic 91–124; BP diastolic 46–74
[2021-03-31] MEDS: MIDAZOLAM DRIP 50 mg/50mL 50 ML IV SCH ×3 (00:54→17:39)
[2021-03-31 05:08] LABS: Albumin 2.8 g/dL (3.4-5.0); Calcium 8.4 mg/dL (8.5-10.1); Potassium 4.5 mmol/L (3.5-5.1)
[2021-03-31 05:10] LABS: Bilirubin, Total 0.5 mg/dL (0.2-1.0); Total Protein 6.3 g/dL (6.4-8.2)
[2021-03-31] MEDS: METOCLOPRAMIDE HCL 5MG/ml INJ 2ml VIAL IV SCH ×3 (05:37→21:53)
[2021-03-31] MEDS: MEROPENEM 1GM IVPB 100 ML IV SCH ×3 (05:37→21:53)
[2021-03-31] MEDS: InsuLIN REG 1unit/0.01ml Soln (100units/ml) SC SCH ×4 (05:38→17:21)
[2021-03-31] MEDS: ACCU-CHEK COMFORT CURVE STRIP VI SCH ×5 (05:39→23:47)
[2021-03-31] MEDS: ALBUTEROL SULF 2.5 MG/0.5ML(0.5%) NEB SOLN NEB PRN ×2 (08:58→18:33)
[2021-03-31] MEDS: BUDESONIDE (INHALATION) 0.5 MG/2 ML NEB NEB SCH ×2 (08:58→18:33)
[2021-03-31] MEDS: MULTIPLE VITAMIN TAB PO SCH (09:23)
[2021-03-31] MEDS: PANTOPRAZOLE 40 MG/10 ML VIAL INJ IV SCH (09:23)
[2021-03-31] MEDS: clonazePAM 0.5 MG TAB NG SCH ×2 (09:23→21:53)
[2021-03-31] MEDS: ENOXAPARIN SOD 30 MG/0.3 ML SYRINGE SC SCH ×2 (09:23→21:53)
[2021-03-31] MEDS: ENOXAPARIN SOD 100 MG/1 ML SYRINGE SC SCH ×2 (09:23→21:53)
[2021-03-31] MEDS: QUEtiapine FUMARATE 25 MG TAB PO SCH ×2 (09:23→21:53)
[2021-03-31] MEDS: FUROSEMIDE 40 MG/4 ML VIAL IV SCH (09:23)
[2021-03-31] MEDS: PROPOFOL 100 ML IV SCH ×3 (10:15→17:39)
[2021-03-31] MEDS: fentaNYL Drip 2500mCg/250mlNS 250 ML IV SCH (10:16)
[2021-03-31] MEDS: ROCURONIUM BROMIDE 1,000 MG in D5W 5% 150 ML IV SCH (13:05)
[2021-03-31] MEDS: TPN PER PHARMACY IV NR ×18 (19:48→20:55)
[2021-03-31] MEDS: DexAMETHasone SOD PHOS 10MG/1ML VIAL INJ IV SCH (20:53)
[2021-03-31] MEDS: NOREPINEPHRINE 8 MG/250ML KIT 250 ML IV SCH (22:45)
[2021-04-01] VITALS (98 sets, daily range): BP systolic 86–123; BP diastolic 45–80
[2021-04-01] MEDS: InsuLIN REG 1unit/0.01ml Soln (100units/ml) SC SCH ×4 (00:04→17:17)
[2021-04-01] MEDS: ROCURONIUM BROMIDE 1,000 MG in D5W 5% 150 ML IV SCH ×2 (01:09→22:34)
[2021-04-01 04:31] LABS: Albumin 2.7 g/dL (3.4-5.0); Calcium 8.1 mg/dL (8.5-10.1); Potassium 4.6 mmol/L (3.5-5.1)
[2021-04-01 04:35] LABS: Bilirubin, Total 0.5 mg/dL (0.2-1.0); Phosphorus 3.4 mg/dL (2.5-4.90); Total Protein 6.3 g/dL (6.4-8.2)
[2021-04-01] MEDS: ACCU-CHEK COMFORT CURVE STRIP VI SCH ×3 (06:09→17:17)
[2021-04-01] MEDS: MEROPENEM 1GM IVPB 100 ML IV SCH (06:09)
[2021-04-01] MEDS: METOCLOPRAMIDE HCL 5MG/ml INJ 2ml VIAL IV SCH ×3 (06:09→20:35)
[2021-04-01] MEDS: QUEtiapine FUMARATE 25 MG TAB PO SCH ×2 (09:32→20:39)
[2021-04-01] MEDS: ENOXAPARIN SOD 100 MG/1 ML SYRINGE SC SCH ×2 (09:32→20:40)
[2021-04-01] MEDS: PANTOPRAZOLE 40 MG/10 ML VIAL INJ IV SCH (09:32)
[2021-04-01] MEDS: ENOXAPARIN SOD 30 MG/0.3 ML SYRINGE SC SCH ×2 (09:32→20:40)
[2021-04-01] MEDS: FUROSEMIDE 40 MG/4 ML VIAL IV SCH (09:32)
[2021-04-01] MEDS: clonazePAM 0.5 MG TAB NG SCH ×2 (09:32→20:45)
[2021-04-01] MEDS: MULTIPLE VITAMIN TAB PO SCH (09:32)
[2021-04-01] MEDS: MIDAZOLAM DRIP 50 mg/50mL 50 ML IV SCH ×5 (09:34→20:54)
[2021-04-01] MEDS: PROPOFOL 100 ML IV SCH ×5 (11:37→20:51)
[2021-04-01] MEDS: fentaNYL Drip 2500mCg/250mlNS 250 ML IV SCH ×3 (11:39→20:53)
[2021-04-01] MEDS: BUDESONIDE (INHALATION) 0.5 MG/2 ML NEB NEB SCH (18:49)
[2021-04-01] MEDS: ALBUTEROL SULF 2.5 MG/0.5ML(0.5%) NEB SOLN NEB PRN (18:49)
[2021-04-01] MEDS: TPN PER PHARMACY IV NR ×8 (19:50)
[2021-04-01] MEDS ORDERED: TPN PER PHARMACY IV NR ×9 (20:00)
[2021-04-01] MEDS: DexAMETHasone SOD PHOS 10MG/1ML VIAL INJ IV SCH (20:34)
[2021-04-01] MEDS: NOREPINEPHRINE 8 MG/250ML KIT 250 ML IV SCH (22:45)
[2021-04-02] VITALS (100 sets, daily range): BP systolic 87–135; BP diastolic 44–79
[2021-04-02 04:46] LABS: Albumin 2.8 g/dL (3.4-5.0); BUN/Creatinine Ratio 65.6; Calcium 8.4 mg/dL (8.5-10.1); Magnesium 2.4 mg/dL (1.6-2.6); Potassium 4.2 mmol/L (3.5-5.1)
[2021-04-02 04:48] LABS: Bilirubin, Total 0.6 mg/dL (0.2-1.0); Phosphorus 3.6 mg/dL (2.5-4.90); Total Protein 6.3 g/dL (6.4-8.2)
[2021-04-02] MEDS: ACCU-CHEK COMFORT CURVE STRIP VI SCH ×4 (06:00→18:00)
[2021-04-02] MEDS: InsuLIN REG 1unit/0.01ml Soln (100units/ml) SC SCH ×4 (06:00→18:00)
[2021-04-02] MEDS: NOREPINEPHRINE 8 MG/250ML KIT 250 ML IV SCH (08:00)
[2021-04-02] MEDS: ALBUTEROL SULF 2.5 MG/0.5ML(0.5%) NEB SOLN NEB PRN ×2 (09:59→22:16)
[2021-04-02] MEDS: BUDESONIDE (INHALATION) 0.5 MG/2 ML NEB NEB SCH ×2 (09:59→22:16)
[2021-04-02] MEDS: PANTOPRAZOLE 40 MG/10 ML VIAL INJ IV SCH (10:27)
[2021-04-02] MEDS: METOCLOPRAMIDE HCL 5MG/ml INJ 2ml VIAL IV SCH ×3 (10:27→20:35)
[2021-04-02] MEDS: FUROSEMIDE 40 MG/4 ML VIAL IV SCH (10:27)
[2021-04-02] MEDS: MULTIPLE VITAMIN TAB PO SCH (10:28)
[2021-04-02] MEDS: ENOXAPARIN SOD 100 MG/1 ML SYRINGE SC SCH ×2 (10:28→20:36)
[2021-04-02] MEDS: QUEtiapine FUMARATE 25 MG TAB PO SCH ×2 (10:28→20:35)
[2021-04-02] MEDS: clonazePAM 0.5 MG TAB NG SCH ×2 (10:28→20:35)
[2021-04-02] MEDS: ENOXAPARIN SOD 30 MG/0.3 ML SYRINGE SC SCH ×2 (10:28→20:36)
[2021-04-02] MEDS: fentaNYL Drip 2500mCg/250mlNS 250 ML IV SCH (11:21)
[2021-04-02] MEDS: PROPOFOL 100 ML IV SCH ×2 (11:24→14:49)
[2021-04-02] MEDS: MIDAZOLAM DRIP 50 mg/50mL 50 ML IV SCH (12:57)
[2021-04-02] MEDS: ROCURONIUM BROMIDE 1,000 MG in D5W 5% 150 ML IV SCH (14:48)
[2021-04-02] MEDS ORDERED: TPN PER PHARMACY IV NR ×7 (20:00)
[2021-04-02] MEDS: DexAMETHasone SOD PHOS 10MG/1ML VIAL INJ IV SCH (20:37)
[2021-04-03] VITALS (99 sets, daily range): BP systolic 84–117; BP diastolic 43–72
[2021-04-03] MEDS: fentaNYL Drip 2500mCg/250mlNS 250 ML IV SCH
[2021-04-03] MEDS: ACCU-CHEK COMFORT CURVE STRIP VI SCH ×5 (00:25→23:45)
[2021-04-03 04:36] LABS: Albumin 2.7 g/dL (3.4-5.0); Magnesium 2.4 mg/dL (1.6-2.6); Potassium 4.2 mmol/L (3.5-5.1)
[2021-04-03 04:40] LABS: BUN/Creatinine Ratio 95.5; Bilirubin, Total 0.5 mg/dL (0.2-1.0); Phosphorus 4.4 mg/dL (2.5-4.90)
[2021-04-03] MEDS: METOCLOPRAMIDE HCL 5MG/ml INJ 2ml VIAL IV SCH ×3 (06:00→22:00)
[2021-04-03] MEDS: InsuLIN REG 1unit/0.01ml Soln (100units/ml) SC SCH ×5 (06:00→23:45)
[2021-04-03] MEDS: ROCURONIUM BROMIDE 1,000 MG in D5W 5% 150 ML IV SCH (08:00)
[2021-04-03] MEDS: PANTOPRAZOLE 40 MG/10 ML VIAL INJ IV SCH (09:37)
[2021-04-03] MEDS: clonazePAM 0.5 MG TAB NG SCH ×2 (09:38→22:00)
[2021-04-03] MEDS: FUROSEMIDE 40 MG/4 ML VIAL IV SCH (09:38)
[2021-04-03] MEDS: QUEtiapine FUMARATE 25 MG TAB PO SCH ×2 (09:40→22:00)
[2021-04-03] MEDS: MULTIPLE VITAMIN TAB PO SCH (09:40)
[2021-04-03] MEDS: ENOXAPARIN SOD 30 MG/0.3 ML SYRINGE SC SCH ×2 (09:41→22:00)
[2021-04-03] MEDS: ENOXAPARIN SOD 100 MG/1 ML SYRINGE SC SCH ×2 (09:41→22:00)
[2021-04-03 15:07] LABS: INR 1.1 (0.9-1.15)
[2021-04-03] MEDS: ALBUTEROL SULF 2.5 MG/0.5ML(0.5%) NEB SOLN NEB PRN ×2 (16:38→19:52)
[2021-04-03] MEDS: BUDESONIDE (INHALATION) 0.5 MG/2 ML NEB NEB SCH ×2 (16:38→19:52)
[2021-04-03] MEDS ORDERED: TPN PER PHARMACY IV NR ×7 (20:00)
[2021-04-03] MEDS: MIDAZOLAM DRIP 50 mg/50mL 50 ML IV SCH (21:00)
[2021-04-03] MEDS: DexAMETHasone SOD PHOS 10MG/1ML VIAL INJ IV SCH (22:00)
[2021-04-03] MEDS: PROPOFOL 100 ML IV SCH ×2 (22:41→23:35)
[2021-04-03] MEDS: NOREPINEPHRINE 8 MG/250ML KIT 250 ML IV SCH (22:45)
[2021-04-04] VITALS (73 sets, daily range): BP systolic 80–119; BP diastolic 45–74
[2021-04-04] MEDS: ROCURONIUM BROMIDE 1,000 MG in D5W 5% 150 ML IV SCH ×2 (00:25→17:02)
[2021-04-04 05:46] LABS: Calcium 7.7 mg/dL (8.5-10.1)
[2021-04-04 05:49] LABS: Albumin 2.4 g/dL (3.4-5.0); BUN/Creatinine Ratio 54.1
[2021-04-04 05:52] LABS: Bilirubin, Total 0.6 mg/dL (0.2-1.0); Phosphorus 3.4 mg/dL (2.5-4.90); Total Protein 5.4 g/dL (6.4-8.2)
[2021-04-04] MEDS: ACCU-CHEK COMFORT CURVE STRIP VI SCH ×3 (06:00→18:00)
[2021-04-04] MEDS: METOCLOPRAMIDE HCL 5MG/ml INJ 2ml VIAL IV SCH ×3 (06:00→22:00)
[2021-04-04] MEDS: InsuLIN REG 1unit/0.01ml Soln (100units/ml) SC SCH ×3 (06:00→18:00)
[2021-04-04] MEDS: NOREPINEPHRINE 8 MG/250ML KIT 250 ML IV SCH (07:00)
[2021-04-04] MEDS: MIDAZOLAM DRIP 50 mg/50mL 50 ML IV SCH ×2 (09:50→15:03)
[2021-04-04] MEDS: PANTOPRAZOLE 40 MG/10 ML VIAL INJ IV SCH (09:52)
[2021-04-04] MEDS: FUROSEMIDE 40 MG/4 ML VIAL IV SCH (09:53)
[2021-04-04] MEDS: MULTIPLE VITAMIN TAB PO SCH (09:53)
[2021-04-04] MEDS: QUEtiapine FUMARATE 25 MG TAB PO SCH ×2 (09:53→21:32)
[2021-04-04] MEDS: ENOXAPARIN SOD 30 MG/0.3 ML SYRINGE SC SCH ×2 (09:54→21:32)
[2021-04-04] MEDS: ENOXAPARIN SOD 100 MG/1 ML SYRINGE SC SCH ×2 (09:54→21:32)
[2021-04-04] MEDS: clonazePAM 0.5 MG TAB NG SCH (09:54)
[2021-04-04] MEDS: BUDESONIDE (INHALATION) 0.5 MG/2 ML NEB NEB SCH ×2 (10:00→22:28)
[2021-04-04] MEDS: fentaNYL Drip 2500mCg/250mlNS 250 ML IV SCH (15:02)
[2021-04-04] MEDS ORDERED: TPN PER PHARMACY IV NR ×7 (20:00)
[2021-04-04] MEDS: DexAMETHasone SOD PHOS 10MG/1ML VIAL INJ IV SCH (21:32)
[2021-04-04] MEDS: PROPOFOL 100 ML IV SCH (21:33)
[2021-04-05] VITALS (52 sets, daily range): BP systolic 88–111; BP diastolic 49–77
[2021-04-05] MEDS: METOCLOPRAMIDE HCL 5MG/ml INJ 2ml VIAL IV SCH ×3 (06:00→22:00)
[2021-04-05] MEDS: ACCU-CHEK COMFORT CURVE STRIP VI SCH ×4 (06:00→17:54)
[2021-04-05] MEDS: InsuLIN REG 1unit/0.01ml Soln (100units/ml) SC SCH ×4 (06:00→17:54)
[2021-04-05] MEDS: BUDESONIDE (INHALATION) 0.5 MG/2 ML NEB NEB SCH ×2 (06:04→19:17)
[2021-04-05] MEDS: ALBUTEROL SULF 2.5 MG/0.5ML(0.5%) NEB SOLN NEB PRN ×2 (06:04→19:17)
[2021-04-05] MEDS: MIDAZOLAM DRIP 50 mg/50mL 50 ML IV SCH ×3 (06:40→15:22)
[2021-04-05 08:40] LABS: Alanine Aminotransferase 164 U/L (16-61)
[2021-04-05] MEDS: ROCURONIUM BROMIDE 1,000 MG in D5W 5% 150 ML IV SCH (09:39)
[2021-04-05 09:40] LABS: Anion Gap 4 (5-15); Blood Urea Nitrogen 20 mg/dL (7-18); Carbon Dioxide 29 mmol/L (21-32); Chloride 107 mmol/L (98-107); Glucose 118 mg/dL (74-106); Potassium 3.6 mmol/L (3.5-5.1); Sodium 140 mmol/L (136-145)
[2021-04-05 09:41] LABS: Albumin 2.8 g/dL (3.4-5.0); Alkaline Phosphatase 65 U/L (45-117); Aspartate Aminotransferase 43 U/L (15-37); BUN/Creatinine Ratio 71.4; Bilirubin, Total 1.5 mg/dL (0.2-1.0); Calcium 8.5 mg/dL (8.5-10.1); GFR African American 505 mL/min; GFR Non-African American 417 mL/min; Magnesium 2.5 mg/dL (1.6-2.6); Phosphorus 4.1 mg/dL (2.5-4.90); Total Protein 6.5 g/dL (6.4-8.2)
[2021-04-05] MEDS: ENOXAPARIN SOD 100 MG/1 ML SYRINGE SC SCH ×2 (09:58→22:00)
[2021-04-05] MEDS: FUROSEMIDE 40 MG/4 ML VIAL IV SCH (09:58)
[2021-04-05] MEDS: QUEtiapine FUMARATE 25 MG TAB PO SCH ×2 (09:58→22:00)
[2021-04-05] MEDS: MULTIPLE VITAMIN TAB PO SCH (09:58)
[2021-04-05] MEDS: PANTOPRAZOLE 40 MG/10 ML VIAL INJ IV SCH (09:58)
[2021-04-05] MEDS: ENOXAPARIN SOD 30 MG/0.3 ML SYRINGE SC SCH ×2 (09:59→22:00)
[2021-04-05] MEDS: fentaNYL Drip 2500mCg/250mlNS 250 ML IV SCH (10:26)
[2021-04-05] MEDS: PROPOFOL 100 ML IV SCH ×2 (10:27→15:23)
[2021-04-05 15:24] LABS: INR 1.12 (0.9-1.15); Partial Thromboplastin Time 36.8 sec (23.6-33.0)
[2021-04-05] MEDS ORDERED: TPN PER PHARMACY IV NR ×7 (20:00)
[2021-04-05] MEDS: DexAMETHasone SOD PHOS 10MG/1ML VIAL INJ IV SCH (22:00)
[2021-04-05] MEDS: NOREPINEPHRINE 8 MG/250ML KIT 250 ML IV SCH (22:45)
[2021-04-06] VITALS (59 sets, daily range): BP systolic 91–121; BP diastolic 49–70
[2021-04-06] MEDS: ROCURONIUM BROMIDE 1,000 MG in D5W 5% 150 ML IV SCH (02:16)
[2021-04-06] MEDS: PROPOFOL 100 ML IV SCH (03:00)
[2021-04-06 05:02] LABS: Albumin 2.8 g/dL (3.4-5.0); Calcium 8.8 mg/dL (8.5-10.1); Potassium 4.1 mmol/L (3.5-5.1)
[2021-04-06 05:10] LABS: BUN/Creatinine Ratio 53.1; Bilirubin, Total 0.6 mg/dL (0.2-1.0); Magnesium 2.3 mg/dL (1.6-2.6); Phosphorus 3.5 mg/dL (2.5-4.90); Total Protein 6.9 g/dL (6.4-8.2)
[2021-04-06] MEDS: MIDAZOLAM DRIP 50 mg/50mL 50 ML IV SCH (06:32)
[2021-04-06] MEDS: fentaNYL Drip 2500mCg/250mlNS 250 ML IV SCH (06:33)
[2021-04-06] MEDS: FUROSEMIDE 40 MG/4 ML VIAL IV SCH (10:04)
[2021-04-06] MEDS: MULTIPLE VITAMIN TAB PO SCH (10:04)
[2021-04-06] MEDS: QUEtiapine FUMARATE 25 MG TAB PO SCH ×2 (10:04→22:00)
[2021-04-06] MEDS: PANTOPRAZOLE 40 MG/10 ML VIAL INJ IV SCH (10:04)
[2021-04-06] MEDS: ENOXAPARIN SOD 100 MG/1 ML SYRINGE SC SCH ×2 (10:04→22:00)
[2021-04-06] MEDS: ENOXAPARIN SOD 30 MG/0.3 ML SYRINGE SC SCH ×2 (10:05→22:00)
[2021-04-06] MEDS: ALBUTEROL SULF 2.5 MG/0.5ML(0.5%) NEB SOLN NEB PRN ×2 (10:30→19:57)
[2021-04-06] MEDS: BUDESONIDE (INHALATION) 0.5 MG/2 ML NEB NEB SCH ×2 (10:30→19:57)
[2021-04-06] MEDS: ACCU-CHEK COMFORT CURVE STRIP VI SCH ×3 (12:00→18:12)
[2021-04-06] MEDS: InsuLIN REG 1unit/0.01ml Soln (100units/ml) SC SCH ×2 (12:00→18:00)
[2021-04-06] MEDS: METOCLOPRAMIDE HCL 5MG/ml INJ 2ml VIAL IV SCH ×2 (14:00→22:00)
[2021-04-06] MEDS: ACETYLCYSTEINE 10 %(100MG/ML) SOL 4ML NEB SCH (19:57)
[2021-04-06] MEDS ORDERED: TPN PER PHARMACY IV NR ×7 (20:00)
[2021-04-06] MEDS: DexAMETHasone SOD PHOS 10MG/1ML VIAL INJ IV SCH (22:00)
[2021-04-06] MEDS: GLYCOPYRROLATE 0.2 MG/ML 1ML VIAL IV SCH (22:00)
[2021-04-07] VITALS (68 sets, daily range): BP systolic 88–138; BP diastolic 30–82
[2021-04-07] MEDS: ALBUTEROL SULF 2.5 MG/0.5ML(0.5%) NEB SOLN NEB PRN ×4 (02:03→17:53)
[2021-04-07] MEDS: ACETYLCYSTEINE 10 %(100MG/ML) SOL 4ML NEB SCH ×4 (02:03→17:54)
[2021-04-07 04:21] LABS: Albumin 2.5 g/dL (3.4-5.0); Calcium 7.3 mg/dL (8.5-10.1); Magnesium 2.2 mg/dL (1.6-2.6); Potassium 4.4 mmol/L (3.5-5.1)
[2021-04-07 04:30] LABS: Bilirubin, Total 0.8 mg/dL (0.2-1.0); Phosphorus 3.9 mg/dL (2.5-4.90)
[2021-04-07] MEDS: BUDESONIDE (INHALATION) 0.5 MG/2 ML NEB NEB SCH ×2 (07:14→17:54)
[2021-04-07 07:21] LABS: BUN/Creatinine Ratio 33.3
[2021-04-07 07:25] LABS: Pre Albumin 36.1 mg/dL (20.0-40.0); Total Protein 5.3 g/dL (6.4-8.2)
[2021-04-07] MEDS: MIDAZOLAM DRIP 50 mg/50mL 50 ML IV SCH (07:55)
[2021-04-07] MEDS: NOREPINEPHRINE 8 MG/250ML KIT 250 ML IV SCH ×2 (07:55→09:59)
[2021-04-07] MEDS: ENOXAPARIN SOD 100 MG/1 ML SYRINGE SC SCH (10:00)
[2021-04-07] MEDS: QUEtiapine FUMARATE 25 MG TAB PO SCH ×2 (10:00→22:17)
[2021-04-07] MEDS: ENOXAPARIN SOD 30 MG/0.3 ML SYRINGE SC SCH (10:00)
[2021-04-07] MEDS: PANTOPRAZOLE 40 MG/10 ML VIAL INJ IV SCH (10:00)
[2021-04-07] MEDS: FUROSEMIDE 40 MG/4 ML VIAL IV SCH (10:00)
[2021-04-07] MEDS: MULTIPLE VITAMIN TAB PO SCH (10:00)
[2021-04-07 10:59] LABS: Calcium 8.8 mg/dL (8.5-10.1); Potassium 3.6 mmol/L (3.5-5.1)
[2021-04-07 11:03] LABS: BUN/Creatinine Ratio 59.3; Bilirubin, Total 0.6 mg/dL (0.2-1.0)
[2021-04-07] MEDS ORDERED: IOHEXOL 350 MG/ML 100ML IJ ONE (11:51)
[2021-04-07] MEDS: ACCU-CHEK COMFORT CURVE STRIP VI SCH ×4 (12:00→18:05)
[2021-04-07] MEDS: InsuLIN REG 1unit/0.01ml Soln (100units/ml) SC SCH ×3 (12:30→18:00)
[2021-04-07] MEDS: METOCLOPRAMIDE HCL 5MG/ml INJ 2ml VIAL IV SCH ×3 (13:51→22:17)
[2021-04-07] MEDS: GLYCOPYRROLATE 0.2 MG/ML 1ML VIAL IV SCH ×3 (14:00→22:17)
[2021-04-07] MEDS: fentaNYL Drip 2500mCg/250mlNS 250 ML IV SCH (16:00)
[2021-04-07] MEDS ORDERED: TPN PER PHARMACY IV NR ×8 (20:00)
[2021-04-07] MEDS: DexAMETHasone SOD PHOS 10MG/1ML VIAL INJ IV SCH (22:17)
[2021-04-07] MEDS: PROPOFOL 100 ML IV SCH (22:45)
[2021-04-08] VITALS (86 sets, daily range): BP systolic 90–120; BP diastolic 47–73
[2021-04-08] MEDS: ACETYLCYSTEINE 10 %(100MG/ML) SOL 4ML NEB SCH ×4 (00:15→18:27)
[2021-04-08] MEDS: ALBUTEROL SULF 2.5 MG/0.5ML(0.5%) NEB SOLN NEB PRN ×4 (00:15→18:27)
[2021-04-08] MEDS: PROPOFOL 100 ML IV SCH (02:42)
[2021-04-08 04:29] LABS: BUN/Creatinine Ratio 52.6; Calcium 8.6 mg/dL (8.5-10.1); Magnesium 2.3 mg/dL (1.6-2.6); Potassium 3.6 mmol/L (3.5-5.1)
[2021-04-08 04:32] LABS: Bilirubin, Total 0.7 mg/dL (0.2-1.0); Phosphorus 3.1 mg/dL (2.5-4.90)
[2021-04-08] MEDS: ACCU-CHEK COMFORT CURVE STRIP VI SCH ×5 (06:00→23:46)
[2021-04-08] MEDS: InsuLIN REG 1unit/0.01ml Soln (100units/ml) SC SCH ×5 (06:00→23:45)
[2021-04-08] MEDS: METOCLOPRAMIDE HCL 5MG/ml INJ 2ml VIAL IV SCH ×3 (06:00→21:49)
[2021-04-08] MEDS: BUDESONIDE (INHALATION) 0.5 MG/2 ML NEB NEB SCH ×2 (06:20→18:27)
[2021-04-08] MEDS: PANTOPRAZOLE 40 MG/10 ML VIAL INJ IV SCH (10:06)
[2021-04-08] MEDS: QUEtiapine FUMARATE 25 MG TAB PO SCH ×2 (10:07→21:49)
[2021-04-08] MEDS: MULTIPLE VITAMIN TAB PO SCH (10:07)
[2021-04-08] MEDS: ENOXAPARIN SOD 40 MG/0.4 ML SYRINGE SC SCH (10:07)
[2021-04-08] MEDS: FUROSEMIDE 40 MG/4 ML VIAL IV SCH (10:08)
[2021-04-08] MEDS: GLYCOPYRROLATE 0.2 MG/ML 1ML VIAL IV SCH ×3 (14:09→21:49)
[2021-04-08] MEDS: fentaNYL Drip 2500mCg/250mlNS 250 ML IV SCH (16:00)
[2021-04-08] MEDS ORDERED: TPN PER PHARMACY IV NR ×8 (20:00)
[2021-04-08] MEDS: MIDAZOLAM DRIP 50 mg/50mL 50 ML IV SCH (21:00)
[2021-04-08] MEDS: NOREPINEPHRINE 8 MG/250ML KIT 250 ML IV SCH (22:45)
[2021-04-09] VITALS (90 sets, daily range): BP systolic 91–115; BP diastolic 47–67
[2021-04-09] MEDS: ALBUTEROL SULF 2.5 MG/0.5ML(0.5%) NEB SOLN NEB PRN ×2 (00:09→18:40)
[2021-04-09] MEDS: ACETYLCYSTEINE 10 %(100MG/ML) SOL 4ML NEB SCH ×3 (00:10→18:40)
[2021-04-09 05:02] LABS: Potassium 3.1 mmol/L (3.5-5.1)
[2021-04-09 05:08] LABS: Albumin 2.9 g/dL (3.4-5.0); Calcium 8.5 mg/dL (8.5-10.1); Magnesium 1.9 mg/dL (1.6-2.6)
[2021-04-09 05:11] LABS: Phosphorus 3.4 mg/dL (2.5-4.90); Total Protein 6.7 g/dL (6.4-8.2)
[2021-04-09] MEDS: ACCU-CHEK COMFORT CURVE STRIP VI SCH ×3 (05:22→16:49)
[2021-04-09] MEDS: InsuLIN REG 1unit/0.01ml Soln (100units/ml) SC SCH ×3 (05:22→18:00)
[2021-04-09] MEDS: GLYCOPYRROLATE 0.2 MG/ML 1ML VIAL IV SCH ×3 (05:57→21:46)
[2021-04-09] MEDS: METOCLOPRAMIDE HCL 5MG/ml INJ 2ml VIAL IV SCH ×3 (05:57→21:46)
[2021-04-09] MEDS: BUDESONIDE (INHALATION) 0.5 MG/2 ML NEB NEB SCH ×2 (06:50→18:41)
[2021-04-09] MEDS: FUROSEMIDE 40 MG/4 ML VIAL IV SCH (10:00)
[2021-04-09] MEDS: QUEtiapine FUMARATE 25 MG TAB PO SCH ×2 (10:00→21:46)
[2021-04-09] MEDS: DexAMETHasone SOD PHOS 4 MG/1ML SDV INJ IV SCH (10:00)
[2021-04-09] MEDS: ENOXAPARIN SOD 40 MG/0.4 ML SYRINGE SC SCH (10:00)
[2021-04-09] MEDS: MULTIPLE VITAMIN TAB PO SCH (10:00)
[2021-04-09] MEDS: PANTOPRAZOLE 40 MG/10 ML VIAL INJ IV SCH (10:00)
[2021-04-09] MEDS: POTASSIUM CHL 10MEQ/50ML 50 ML IV SCH ×4 (10:15→13:30)
[2021-04-09] MEDS ORDERED: TPN PER PHARMACY IV NR ×10 (20:00)
[2021-04-09] MEDS: MIDAZOLAM DRIP 50 mg/50mL 50 ML IV SCH (21:00)
[2021-04-09] MEDS: PROPOFOL 100 ML IV SCH (22:45)
[2021-04-09] MEDS: NOREPINEPHRINE 8 MG/250ML KIT 250 ML IV SCH (22:45)
[2021-04-10] VITALS (94 sets, daily range): BP systolic 90–121; BP diastolic 42–70
[2021-04-10 04:54] LABS: Potassium 3.3 mmol/L (3.5-5.1)
[2021-04-10 05:00] LABS: Albumin 2.5 g/dL (3.4-5.0); Bilirubin, Total 0.3 mg/dL (0.2-1.0); Calcium 8.3 mg/dL (8.5-10.1); Magnesium 1.8 mg/dL (1.6-2.6); Phosphorus 4.2 mg/dL (2.5-4.90)
[2021-04-10 05:30] LABS: BUN/Creatinine Ratio 4.5
[2021-04-10] MEDS: ACCU-CHEK COMFORT CURVE STRIP VI SCH ×4 (06:00→17:05)
[2021-04-10] MEDS: METOCLOPRAMIDE HCL 5MG/ml INJ 2ml VIAL IV SCH ×3 (06:00→22:07)
[2021-04-10] MEDS: InsuLIN REG 1unit/0.01ml Soln (100units/ml) SC SCH ×4 (06:00→17:04)
[2021-04-10] MEDS: ALBUTEROL SULF 2.5 MG/0.5ML(0.5%) NEB SOLN NEB PRN ×3 (08:33→23:44)
[2021-04-10] MEDS: BUDESONIDE (INHALATION) 0.5 MG/2 ML NEB NEB SCH ×2 (08:34→18:41)
[2021-04-10] MEDS: ACETYLCYSTEINE 10 %(100MG/ML) SOL 4ML NEB SCH ×5 (08:34→23:44)
[2021-04-10] MEDS: PANTOPRAZOLE 40 MG/10 ML VIAL INJ IV SCH (09:02)
[2021-04-10] MEDS: DexAMETHasone SOD PHOS 4 MG/1ML SDV INJ IV SCH (09:02)
[2021-04-10] MEDS: FUROSEMIDE 40 MG/4 ML VIAL IV SCH (09:03)
[2021-04-10] MEDS: MULTIPLE VITAMIN TAB PO SCH (09:03)
[2021-04-10] MEDS: QUEtiapine FUMARATE 25 MG TAB PO SCH ×2 (09:03→22:07)
[2021-04-10] MEDS: ENOXAPARIN SOD 40 MG/0.4 ML SYRINGE SC SCH (09:03)
[2021-04-10] MEDS: ACETAMINOPHEN 500 MG TAB PO PRN (09:53)
[2021-04-10] MEDS: POTASSIUM CHL 10MEQ/50ML 50 ML IV SCH ×4 (09:56→13:08)
[2021-04-10] MEDS ORDERED: TPN PER PHARMACY IV NR ×8 (20:00)
[2021-04-11] VITALS (79 sets, daily range): BP systolic 91–169; BP diastolic 50–80
[2021-04-11] MEDS: ACCU-CHEK COMFORT CURVE STRIP VI SCH ×4 (00:28→17:16)
[2021-04-11 04:09] LABS: Basophils # (auto) 0.2 10 ^3/uL (0-0.2); Basophils % (auto) 1.5 % (0.0-2.0); Eosinophils # (auto) 0.2 10 ^3/uL (0-0.8); Eosinophils % (auto) 1.4 % (0.0-7.0); Hemoglobin 11.9 g/dL (13.5-17.5); Lymphocytes # (auto) 2.3 10 ^3/uL (0.4-5.4); Lymphocytes % (auto) 17.4 % (10.0-50.0); Mean Corpuscular Hemoglobin 28.3 pg (28.0-32.0); Mean Corpuscular Volume 85.9 fL (80.0-100.0); Monocytes # (auto) 1.2 10 ^3/uL (0-1.3); Monocytes % (auto) 8.6 % (0.0-12.0); Neutrophils # (auto) 9.5 10 ^3/uL (1.6-8.6); Neutrophils % (auto) 71.1 % (37.0-80.0); Red Blood Cells 4.18 10^6/uL (4.5-5.90); White Blood Cell 13.4 10^3/uL (4.4-10.8)
[2021-04-11 04:29] LABS: Calcium 8.6 mg/dL (8.5-10.1); Potassium 3.4 mmol/L (3.5-5.1)
[2021-04-11] MEDS ORDERED: LORazepam 2MG/ML-1ML VIAL IV STA ×2 (04:30→04:45)
[2021-04-11] MEDS ORDERED: LORazepam 2MG/ML-1ML VIAL ONE ×2 (04:33→04:43)
[2021-04-11 04:34] LABS: BUN/Creatinine Ratio 63.3; Bilirubin, Total 0.7 mg/dL (0.2-1.0); Phosphorus 2.6 mg/dL (2.5-4.90); Total Protein 6.8 g/dL (6.4-8.2)
[2021-04-11] MEDS: PROPOFOL 100 ML IV SCH ×2 (04:45→07:00)
[2021-04-11] MEDS: MIDAZOLAM DRIP 50 mg/50mL 50 ML IV SCH ×2 (04:45→18:43)
[2021-04-11] MEDS ORDERED: levETIRAcetam 500 MG/5ML INJ IV ONE (04:46)
[2021-04-11] MEDS: NOREPINEPHRINE 8 MG/250ML KIT 250 ML IV SCH ×2 (05:00→22:45)
[2021-04-11] MEDS: InsuLIN REG 1unit/0.01ml Soln (100units/ml) SC SCH ×4 (06:00→17:16)
[2021-04-11] MEDS: METOCLOPRAMIDE HCL 5MG/ml INJ 2ml VIAL IV SCH ×3 (06:00→20:42)
[2021-04-11] MEDS: ALBUTEROL SULF 2.5 MG/0.5ML(0.5%) NEB SOLN NEB PRN ×3 (06:19→18:35)
[2021-04-11] MEDS: BUDESONIDE (INHALATION) 0.5 MG/2 ML NEB NEB SCH ×2 (06:19→18:35)
[2021-04-11] MEDS: ACETYLCYSTEINE 10 %(100MG/ML) SOL 4ML NEB SCH ×3 (06:19→18:35)
[2021-04-11] MEDS: DexAMETHasone SOD PHOS 4 MG/1ML SDV INJ IV SCH (08:59)
[2021-04-11] MEDS: MULTIPLE VITAMIN TAB PO SCH (09:00)
[2021-04-11] MEDS: QUEtiapine FUMARATE 25 MG TAB PO SCH ×2 (09:00→20:44)
[2021-04-11] MEDS: FUROSEMIDE 40 MG/4 ML VIAL IV SCH (09:00)
[2021-04-11] MEDS: PANTOPRAZOLE 40 MG/10 ML VIAL INJ IV SCH (09:00)
[2021-04-11] MEDS: ENOXAPARIN SOD 40 MG/0.4 ML SYRINGE SC SCH (09:01)
[2021-04-11] MEDS ORDERED: POTASSIUM PHOSPHATE 22 MEQ in SODIUM CHL 0.9% 100 ML IV ONE (09:30)
[2021-04-11] MEDS: ACETAMINOPHEN 500 MG TAB PO PRN (09:59)
[2021-04-11] MEDS ORDERED: LORazepam 2MG/ML-1ML VIAL IV PRN (10:00)
[2021-04-11] MEDS: fentaNYL Drip 2500mCg/250mlNS 250 ML IV SCH (14:52)
[2021-04-11] MEDS ORDERED: TPN PER PHARMACY IV NR ×9 (20:00)
[2021-04-12] VITALS (90 sets, daily range): BP systolic 97–136; BP diastolic 60–89
[2021-04-12] MEDS: ALBUTEROL SULF 2.5 MG/0.5ML(0.5%) NEB SOLN NEB PRN ×4 (01:09→19:13)
[2021-04-12] MEDS: ACETYLCYSTEINE 10 %(100MG/ML) SOL 4ML NEB SCH ×4 (01:09→19:13)
[2021-04-12] MEDS: InsuLIN REG 1unit/0.01ml Soln (100units/ml) SC SCH ×4 (01:10→18:00)
[2021-04-12] MEDS: ACCU-CHEK COMFORT CURVE STRIP VI SCH ×4 (01:10→18:15)
[2021-04-12 04:01] LABS: INR 1.18 (0.9-1.15); Partial Thromboplastin Time 29.8 sec (23.6-33.0)
[2021-04-12 04:02] LABS: Basophils # (auto) 0.1 10 ^3/uL (0-0.2); Basophils % (auto) 0.7 % (0.0-2.0); Eosinophils # (auto) 0.1 10 ^3/uL (0-0.8); Hematocrit 36.1 % (41.0-53.0); Hemoglobin 11.8 g/dL (13.5-17.5); Lymphocytes # (auto) 2.8 10 ^3/uL (0.4-5.4); Lymphocytes % (auto) 21.6 % (10.0-50.0); Mean Corpuscular Hemoglobin 28.3 pg (28.0-32.0); Mean Corpuscular Hgb Conc. 32.8 g/dL (32.0-36.0); Mean Corpuscular Volume 86.2 fL (80.0-100.0); Monocytes # (auto) 1.2 10 ^3/uL (0-1.3); Monocytes % (auto) 8.9 % (0.0-12.0); Neutrophils # (auto) 8.8 10 ^3/uL (1.6-8.6); Neutrophils % (auto) 67.8 % (37.0-80.0); Nucleated Red Blood Cells % 0.4 %; Red Blood Cells 4.19 10^6/uL (4.5-5.90); White Blood Cell 12.9 10^3/uL (4.4-10.8)
[2021-04-12 04:17] LABS: Albumin 3.1 g/dL (3.4-5.0); Calcium 8.7 mg/dL (8.5-10.1); Magnesium 2.4 mg/dL (1.6-2.6); Potassium 3.7 mmol/L (3.5-5.1)
[2021-04-12 04:28] LABS: BUN/Creatinine Ratio 57.1; Bilirubin, Total 0.8 mg/dL (0.2-1.0); CRP High Sensitivity 1.83 mg/dL (< 0.3); Phosphorus 3.1 mg/dL (2.5-4.90)
[2021-04-12] MEDS: METOCLOPRAMIDE HCL 5MG/ml INJ 2ml VIAL IV SCH ×3 (05:54→22:18)
[2021-04-12] MEDS: BUDESONIDE (INHALATION) 0.5 MG/2 ML NEB NEB SCH ×2 (06:19→19:13)
[2021-04-12] MEDS: DexAMETHasone SOD PHOS 4 MG/1ML SDV INJ IV SCH (09:24)
[2021-04-12] MEDS: FUROSEMIDE 40 MG/4 ML VIAL IV SCH (09:25)
[2021-04-12] MEDS: PANTOPRAZOLE 40 MG/10 ML VIAL INJ IV SCH (09:25)
[2021-04-12] MEDS: MULTIPLE VITAMIN TAB PO SCH (09:25)
[2021-04-12] MEDS: QUEtiapine FUMARATE 25 MG TAB PO SCH ×2 (09:25→22:18)
[2021-04-12] MEDS: ENOXAPARIN SOD 40 MG/0.4 ML SYRINGE SC SCH (09:25)
[2021-04-12] MEDS: fentaNYL Drip 2500mCg/250mlNS 250 ML IV SCH (09:25)
[2021-04-12] MEDS: ACETAMINOPHEN 500 MG TAB PO PRN (09:36)
[2021-04-12] MEDS: FLUCONAZOLE 200MG/100ML 100 ML IV SCH (15:44)
[2021-04-12] MEDS ORDERED: TPN PER PHARMACY IV NR ×9 (20:00)
[2021-04-12] MEDS: PIPERACILLIN-TAZOB 3.375GM 100 ML IV SCH (22:17)
[2021-04-12] MEDS: MIDAZOLAM DRIP 50 mg/50mL 50 ML IV SCH (22:19)
[2021-04-12] MEDS: NOREPINEPHRINE 8 MG/250ML KIT 250 ML IV SCH (22:45)
[2021-04-12] MEDS: PROPOFOL 100 ML IV SCH (22:45)
[2021-04-13] VITALS (74 sets, daily range): BP systolic 100–133; BP diastolic 52–78
[2021-04-13 05:38] LABS: Potassium 3.6 mmol/L (3.5-5.1)
[2021-04-13 05:45] LABS: BUN/Creatinine Ratio 59.4; Bilirubin, Total 0.7 mg/dL (0.2-1.0); Calcium 8.5 mg/dL (8.5-10.1); Magnesium 2.6 mg/dL (1.6-2.6); Phosphorus 2.7 mg/dL (2.5-4.90); Pre Albumin 32.1 mg/dL (20.0-40.0); Total Protein 6.8 g/dL (6.4-8.2)
[2021-04-13] MEDS: METOCLOPRAMIDE HCL 5MG/ml INJ 2ml VIAL IV SCH ×2 (06:00→14:11)
[2021-04-13] MEDS: InsuLIN REG 1unit/0.01ml Soln (100units/ml) SC SCH ×4 (06:00→22:00)
[2021-04-13] MEDS: PIPERACILLIN-TAZOB 3.375GM 100 ML IV SCH (06:00)
[2021-04-13] MEDS: ACCU-CHEK COMFORT CURVE STRIP VI SCH ×4 (06:00→22:00)
[2021-04-13] MEDS: ALBUTEROL SULF 2.5 MG/0.5ML(0.5%) NEB SOLN NEB PRN ×3 (06:28→18:58)
[2021-04-13] MEDS: BUDESONIDE (INHALATION) 0.5 MG/2 ML NEB NEB SCH ×2 (06:28→18:58)
[2021-04-13] MEDS: ACETYLCYSTEINE 10 %(100MG/ML) SOL 4ML NEB SCH ×4 (06:29→18:58)
[2021-04-13] MEDS: DexAMETHasone SOD PHOS 4 MG/1ML SDV INJ IV SCH ×2 (10:19→11:30)
[2021-04-13] MEDS: FLUCONAZOLE 200MG/100ML 100 ML IV SCH (10:21)
[2021-04-13] MEDS: FUROSEMIDE 40 MG/4 ML VIAL IV SCH (10:22)
[2021-04-13] MEDS: PANTOPRAZOLE 40 MG/10 ML VIAL INJ IV SCH (10:22)
[2021-04-13] MEDS: QUEtiapine FUMARATE 25 MG TAB PO SCH ×2 (10:23→21:59)
[2021-04-13] MEDS: MULTIPLE VITAMIN TAB PO SCH (10:23)
[2021-04-13] MEDS: ENOXAPARIN SOD 40 MG/0.4 ML SYRINGE SC SCH (10:24)
[2021-04-13] MEDS: MIDAZOLAM DRIP 50 mg/50mL 50 ML IV SCH ×2 (10:29→20:00)
[2021-04-13] MEDS: fentaNYL Drip 2500mCg/250mlNS 250 ML IV SCH (11:45)
[2021-04-13] MEDS ORDERED: VANCOMYCIN PER PHARMACY 0 MG IV SCH (12:00)
[2021-04-13] MEDS: VANCOMYCIN 1GM/250ML 250 ML IV SCH ×2 (13:36→20:33)
[2021-04-13] MEDS: CEFEPIME 2 GM in SODIUM CHL 0.9% 50 ML IV SCH ×2 (14:11→21:59)
[2021-04-13] MEDS: NOREPINEPHRINE 8 MG/250ML KIT 250 ML IV SCH (16:19)
[2021-04-13] MEDS ORDERED: TPN PER PHARMACY IV NR ×8 (20:00)
[2021-04-13] MEDS: PROPOFOL 100 ML IV SCH (22:45)
[2021-04-14] VITALS (74 sets, daily range): BP systolic 102–126; BP diastolic 52–75
[2021-04-14] MEDS: ALBUTEROL SULF 2.5 MG/0.5ML(0.5%) NEB SOLN NEB PRN ×3 (00:41→19:06)
[2021-04-14] MEDS: ACETYLCYSTEINE 10 %(100MG/ML) SOL 4ML NEB SCH ×4 (00:41→19:06)
[2021-04-14 03:54] LABS: Basophils # (auto) 0.1 10 ^3/uL (0-0.2); Basophils % (auto) 0.9 % (0.0-2.0); Eosinophils # (auto) 0 10 ^3/uL (0-0.8); Eosinophils % (auto) 0.2 % (0.0-7.0); Hemoglobin 11.7 g/dL (13.5-17.5); Lymphocytes % (auto) 17.4 % (10.0-50.0); Mean Corpuscular Hemoglobin 28.4 pg (28.0-32.0); Mean Corpuscular Hgb Conc. 33.5 g/dL (32.0-36.0); Mean Corpuscular Volume 84.7 fL (80.0-100.0); Monocytes # (auto) 0.9 10 ^3/uL (0-1.3); Monocytes % (auto) 7.9 % (0.0-12.0); Neutrophils # (auto) 8.5 10 ^3/uL (1.6-8.6); Neutrophils % (auto) 73.6 % (37.0-80.0); Nucleated Red Blood Cells % 0.2 %; Red Blood Cells 4.13 10^6/uL (4.5-5.90); Red Cell Distribution Width 15.8 % (11.8-14.3); White Blood Cell 11.6 10^3/uL (4.4-10.8)
[2021-04-14 04:02] LABS: Albumin 3.2 g/dL (3.4-5.0); BUN/Creatinine Ratio 53.3; Calcium 8.9 mg/dL (8.5-10.1); Magnesium 2.2 mg/dL (1.6-2.6); Potassium 3.6 mmol/L (3.5-5.1)
[2021-04-14 04:05] LABS: Bilirubin, Total 0.6 mg/dL (0.2-1.0); Phosphorus 3.2 mg/dL (2.5-4.90)
[2021-04-14] MEDS: VANCOMYCIN 1GM/250ML 250 ML IV SCH ×3 (04:47→21:00)
[2021-04-14] MEDS: CEFEPIME 2 GM in SODIUM CHL 0.9% 50 ML IV SCH ×3 (05:44→22:00)
[2021-04-14] MEDS: MIDAZOLAM DRIP 50 mg/50mL 50 ML IV SCH ×2 (08:01→21:00)
[2021-04-14] MEDS: DexAMETHasone SOD PHOS 4 MG/1ML SDV INJ IV SCH (09:27)
[2021-04-14] MEDS: FLUCONAZOLE 200MG/100ML 100 ML IV SCH (09:28)
[2021-04-14] MEDS: FUROSEMIDE 40 MG/4 ML VIAL IV SCH (09:29)
[2021-04-14] MEDS: PANTOPRAZOLE 40 MG/10 ML VIAL INJ IV SCH (09:30)
[2021-04-14] MEDS: MULTIPLE VITAMIN TAB PO SCH (09:30)
[2021-04-14] MEDS: QUEtiapine FUMARATE 25 MG TAB PO SCH ×2 (09:30→21:38)
[2021-04-14] MEDS: InsuLIN REG 1unit/0.01ml Soln (100units/ml) SC SCH ×2 (09:30→22:00)
[2021-04-14] MEDS: ACCU-CHEK COMFORT CURVE STRIP VI SCH ×2 (09:31→22:12)
[2021-04-14] MEDS: ENOXAPARIN SOD 40 MG/0.4 ML SYRINGE SC SCH (09:31)
[2021-04-14] MEDS: fentaNYL Drip 2500mCg/250mlNS 250 ML IV SCH (11:45)
[2021-04-14] MEDS: BUDESONIDE (INHALATION) 0.5 MG/2 ML NEB NEB SCH (16:37)
[2021-04-14] MEDS ORDERED: TPN PER PHARMACY IV NR ×9 (20:00)
[2021-04-14] MEDS: PROPOFOL 100 ML IV SCH (22:45)
[2021-04-14] MEDS: NOREPINEPHRINE 8 MG/250ML KIT 250 ML IV SCH (22:45)
[2021-04-15] VITALS (57 sets, daily range): BP systolic 102–122; BP diastolic 57–73
[2021-04-15] MEDS: BUDESONIDE (INHALATION) 0.5 MG/2 ML NEB NEB SCH ×3 (01:53→18:21)
[2021-04-15] MEDS: ACETYLCYSTEINE 10 %(100MG/ML) SOL 4ML NEB SCH ×4 (01:53→18:21)
[2021-04-15 04:00] LABS: Albumin 3.1 g/dL (3.4-5.0); BUN/Creatinine Ratio 55.2; Calcium 8.7 mg/dL (8.5-10.1); Magnesium 2.2 mg/dL (1.6-2.6); Potassium 3.6 mmol/L (3.5-5.1)
[2021-04-15 04:03] LABS: Bilirubin, Total 0.5 mg/dL (0.2-1.0); Phosphorus 3.4 mg/dL (2.5-4.90); Total Protein 6.8 g/dL (6.4-8.2)
[2021-04-15] MEDS: VANCOMYCIN 1GM/250ML 250 ML IV SCH ×2 (04:52→05:52)
[2021-04-15] MEDS: CEFEPIME 2 GM in SODIUM CHL 0.9% 50 ML IV SCH ×3 (06:00→22:00)
[2021-04-15] MEDS: ALBUTEROL SULF 2.5 MG/0.5ML(0.5%) NEB SOLN NEB PRN ×2 (06:10→18:21)
[2021-04-15] MEDS ORDERED: ceFAZolin 1GM/50ML 50 ML IV ONE (09:45)
[2021-04-15] MEDS: ENOXAPARIN SOD 40 MG/0.4 ML SYRINGE SC SCH (10:00)
[2021-04-15] MEDS: InsuLIN REG 1unit/0.01ml Soln (100units/ml) SC SCH ×2 (10:00→22:00)
[2021-04-15] MEDS: ACCU-CHEK COMFORT CURVE STRIP VI SCH ×2 (10:00→22:00)
[2021-04-15] MEDS: DexAMETHasone SOD PHOS 4 MG/1ML SDV INJ IV SCH (11:41)
[2021-04-15] MEDS: FLUCONAZOLE 200MG/100ML 100 ML IV SCH (11:42)
[2021-04-15] MEDS: FUROSEMIDE 40 MG/4 ML VIAL IV SCH (11:43)
[2021-04-15] MEDS: PANTOPRAZOLE 40 MG/10 ML VIAL INJ IV SCH (11:44)
[2021-04-15] MEDS: MULTIPLE VITAMIN TAB PO SCH (11:44)
[2021-04-15] MEDS: fentaNYL Drip 2500mCg/250mlNS 250 ML IV SCH (11:45)
[2021-04-15] MEDS: QUEtiapine FUMARATE 25 MG TAB PO SCH ×2 (11:45→22:00)
[2021-04-15] MEDS ORDERED: SODIUM CHLORIDE LOCK 10 ML ONE (14:23)
[2021-04-15] MEDS: MIDAZOLAM HCL 5 MG/ML-1ML VIAL ONE ×3 (15:08→15:14)
[2021-04-15] MEDS: fentaNYL CITRATE 100 MCG/2 ML VL ONE ×3 (15:08→15:14)
[2021-04-15] MEDS: PROPOFOL 100 ML IV SCH ×2 (16:08→22:45)
[2021-04-15] MEDS ORDERED: TPN PER PHARMACY IV NR ×9 (20:00)
[2021-04-15] MEDS ORDERED: VANCOMYCIN 1GM/250ML 250 ML IV SCH (20:00)
[2021-04-15] MEDS: NOREPINEPHRINE 8 MG/250ML KIT 250 ML IV SCH (22:45)
[2021-04-16] VITALS (65 sets, daily range): BP systolic 97–124; BP diastolic 51–69
[2021-04-16] MEDS: ALBUTEROL SULF 2.5 MG/0.5ML(0.5%) NEB SOLN NEB PRN ×4 (00:19→18:33)
[2021-04-16] MEDS: ACETYLCYSTEINE 10 %(100MG/ML) SOL 4ML NEB SCH ×4 (00:19→18:33)
[2021-04-16 04:11] LABS: Basophils # (auto) 0.1 10 ^3/uL (0-0.2); Eosinophils # (auto) 0.2 10 ^3/uL (0-0.8); Eosinophils % (auto) 1.1 % (0.0-7.0)
[2021-04-16 04:14] LABS: Basophils % (auto) 0.5 % (0.0-2.0); Hematocrit 24.6 % (41.0-53.0); Hemoglobin 8.1 g/dL (13.5-17.5); Lymphocytes # (auto) 0.7 10 ^3/uL (0.4-5.4); Lymphocytes % (auto) 4.5 % (10.0-50.0); Mean Corpuscular Hemoglobin 30.4 pg (28.0-32.0); Mean Corpuscular Hgb Conc. 32.9 g/dL (32.0-36.0); Mean Corpuscular Volume 92.4 fL (80.0-100.0); Monocytes % (auto) 6.6 % (0.0-12.0); Neutrophils # (auto) 13.4 10 ^3/uL (1.6-8.6); Neutrophils % (auto) 87.3 % (37.0-80.0); Red Blood Cells 2.66 10^6/uL (4.5-5.90); Red Cell Distribution Width 18.8 % (11.8-14.3); White Blood Cell 15.4 10^3/uL (4.4-10.8)
[2021-04-16 04:30] LABS: Albumin 2.4 g/dL (3.4-5.0); Calcium 7.7 mg/dL (8.5-10.1); Potassium 4.8 mmol/L (3.5-5.1)
[2021-04-16 04:33] LABS: BUN/Creatinine Ratio 14.4
[2021-04-16 04:36] LABS: Bilirubin, Total 0.4 mg/dL (0.2-1.0); Magnesium 2.7 mg/dL (1.6-2.6); Phosphorus 7.5 mg/dL (2.5-4.90); Total Protein 6.4 g/dL (6.4-8.2)
[2021-04-16] MEDS: SODIUM CHLORIDE 0.9% 1,000 ML IV SCH ×3 (06:00→21:13)
[2021-04-16] MEDS: CEFEPIME 2 GM in SODIUM CHL 0.9% 50 ML IV SCH ×3 (06:00→21:13)
[2021-04-16 07:53] LABS: Basophils # (auto) 0.1 10 ^3/uL (0-0.2); Basophils % (auto) 0.9 % (0.0-2.0); Eosinophils # (auto) 0 10 ^3/uL (0-0.8); Eosinophils % (auto) 0.3 % (0.0-7.0); Hematocrit 36.4 % (41.0-53.0); Hemoglobin 11.9 g/dL (13.5-17.5); Lymphocytes # (auto) 2.6 10 ^3/uL (0.4-5.4); Lymphocytes % (auto) 15.8 % (10.0-50.0); Mean Corpuscular Hemoglobin 28.2 pg (28.0-32.0); Mean Corpuscular Hgb Conc. 32.7 g/dL (32.0-36.0); Mean Corpuscular Volume 86.2 fL (80.0-100.0); Monocytes # (auto) 1.2 10 ^3/uL (0-1.3); Monocytes % (auto) 7.4 % (0.0-12.0); Neutrophils # (auto) 12.3 10 ^3/uL (1.6-8.6); Neutrophils % (auto) 75.6 % (37.0-80.0); Nucleated Red Blood Cells % 0.1 %; Red Blood Cells 4.23 10^6/uL (4.5-5.90); Red Cell Distribution Width 16.1 % (11.8-14.3); White Blood Cell 16.2 10^3/uL (4.4-10.8)
[2021-04-16 07:58] LABS: Potassium 3.9 mmol/L (3.5-5.1)
[2021-04-16 08:00] LABS: BUN/Creatinine Ratio 41.9
[2021-04-16] MEDS: PANTOPRAZOLE 40 MG/10 ML VIAL INJ IV SCH (09:47)
[2021-04-16] MEDS: ACCU-CHEK COMFORT CURVE STRIP VI SCH ×2 (09:47→21:14)
[2021-04-16] MEDS: InsuLIN REG 1unit/0.01ml Soln (100units/ml) SC SCH ×2 (09:47→22:00)
[2021-04-16] MEDS: MULTIPLE VITAMIN TAB PO SCH (09:47)
[2021-04-16] MEDS: QUEtiapine FUMARATE 25 MG TAB PO SCH ×2 (09:47→21:14)
[2021-04-16] MEDS: fentaNYL Drip 2500mCg/250mlNS 250 ML IV SCH (11:45)
[2021-04-16] MEDS: BUDESONIDE (INHALATION) 0.5 MG/2 ML NEB NEB SCH ×2 (12:17→18:34)
[2021-04-16] MEDS ORDERED: VANCOMYCIN PER PHARMACY 0 MG IV SCH (12:30)
[2021-04-16 12:46] LABS: Albumin 2.4 g/dL (3.4-5.0); Magnesium 2.7 mg/dL (1.6-2.6)
[2021-04-16 12:50] LABS: Bilirubin, Direct 0.2 mg/dL (0-0.2); Bilirubin, Total 0.5 mg/dL (0.2-1.0); Phosphorus 7.4 mg/dL (2.5-4.90); Total Protein 6.5 g/dL (6.4-8.2)
[2021-04-16] MEDS ORDERED: VANCOMYCIN 1GM/250ML 250 ML IV ONE ×2 (13:00→15:35)
[2021-04-16] MEDS ORDERED: VANCOMYCIN 500 MG in D5W 5% 100 ML IV ONE (14:00)
[2021-04-16] MEDS ORDERED: TPN PER PHARMACY IV NR ×4 (20:00)
[2021-04-16] MEDS: MIDAZOLAM DRIP 50 mg/50mL 50 ML IV SCH (21:00)
[2021-04-16] MEDS: ENOXAPARIN SOD 30 MG/0.3 ML SYRINGE SC SCH (21:14)
[2021-04-16] MEDS: NOREPINEPHRINE 8 MG/250ML KIT 250 ML IV SCH (22:45)
[2021-04-16] MEDS: PROPOFOL 100 ML IV SCH (22:45)
[2021-04-17] VITALS (76 sets, daily range): BP systolic 101–122; BP diastolic 54–77
[2021-04-17] MEDS: ALBUTEROL SULF 2.5 MG/0.5ML(0.5%) NEB SOLN NEB PRN ×4 (00:32→19:08)
[2021-04-17] MEDS: ACETYLCYSTEINE 10 %(100MG/ML) SOL 4ML NEB SCH ×4 (00:32→19:08)
[2021-04-17 03:58] LABS: Basophils # (auto) 0.1 10 ^3/uL (0-0.2); Basophils % (auto) 0.8 % (0.0-2.0); Eosinophils # (auto) 0.1 10 ^3/uL (0-0.8); Eosinophils % (auto) 1.2 % (0.0-7.0); Hematocrit 35.5 % (41.0-53.0); Hemoglobin 11.9 g/dL (13.5-17.5); Lymphocytes # (auto) 2.6 10 ^3/uL (0.4-5.4); Lymphocytes % (auto) 21.9 % (10.0-50.0); Mean Corpuscular Hgb Conc. 33.5 g/dL (32.0-36.0); Mean Corpuscular Volume 86.6 fL (80.0-100.0); Neutrophils # (auto) 8.1 10 ^3/uL (1.6-8.6); Neutrophils % (auto) 68.1 % (37.0-80.0); Nucleated Red Blood Cells % 0.1 %; Red Cell Distribution Width 16.3 % (11.8-14.3); White Blood Cell 11.9 10^3/uL (4.4-10.8)
[2021-04-17 04:15] LABS: Albumin 3.1 g/dL (3.4-5.0); Calcium 8.6 mg/dL (8.5-10.1); Potassium 3.8 mmol/L (3.5-5.1)
[2021-04-17 04:17] LABS: BUN/Creatinine Ratio 29.6
[2021-04-17 04:20] LABS: Bilirubin, Total 0.5 mg/dL (0.2-1.0); Phosphorus 3.3 mg/dL (2.5-4.90); Total Protein 6.7 g/dL (6.4-8.2)
[2021-04-17] MEDS: SODIUM CHLORIDE 0.9% 1,000 ML IV SCH ×3 (05:54→21:35)
[2021-04-17] MEDS: CEFEPIME 2 GM in SODIUM CHL 0.9% 50 ML IV SCH ×3 (05:55→21:37)
[2021-04-17] MEDS: BUDESONIDE (INHALATION) 0.5 MG/2 ML NEB NEB SCH ×2 (06:31→19:08)
[2021-04-17] MEDS: InsuLIN REG 1unit/0.01ml Soln (100units/ml) SC SCH ×2 (10:00→22:00)
[2021-04-17] MEDS: ENOXAPARIN SOD 30 MG/0.3 ML SYRINGE SC SCH ×2 (10:00→21:40)
[2021-04-17] MEDS: QUEtiapine FUMARATE 25 MG TAB PO SCH ×2 (10:10→21:40)
[2021-04-17] MEDS: MULTIPLE VITAMIN TAB PO SCH (10:10)
[2021-04-17] MEDS: PANTOPRAZOLE 40 MG/10 ML VIAL INJ IV SCH (10:10)
[2021-04-17] MEDS: ACCU-CHEK COMFORT CURVE STRIP VI SCH ×2 (10:10→22:00)
[2021-04-17] MEDS: fentaNYL Drip 2500mCg/250mlNS 250 ML IV SCH (11:45)
[2021-04-17] MEDS: VANCOMYCIN 1GM/250ML 250 ML IV SCH ×2 (15:23→20:40)
[2021-04-17] MEDS ORDERED: TPN PER PHARMACY IV NR ×8 (20:00)
[2021-04-18] VITALS (73 sets, daily range): BP systolic 102–126; BP diastolic 54–79
[2021-04-18] MEDS: ALBUTEROL SULF 2.5 MG/0.5ML(0.5%) NEB SOLN NEB PRN ×4 (00:31→18:32)
[2021-04-18] MEDS: ACETYLCYSTEINE 10 %(100MG/ML) SOL 4ML NEB SCH ×4 (00:31→18:32)
[2021-04-18] MEDS: VANCOMYCIN 1GM/250ML 250 ML IV SCH ×4 (00:59→23:00)
[2021-04-18 03:49] LABS: Basophils # (auto) 0.1 10 ^3/uL (0-0.2); Eosinophils # (auto) 0.3 10 ^3/uL (0-0.8); Eosinophils % (auto) 2.1 % (0.0-7.0); Hematocrit 35.4 % (41.0-53.0); Hemoglobin 11.8 g/dL (13.5-17.5); Lymphocytes # (auto) 2.2 10 ^3/uL (0.4-5.4); Lymphocytes % (auto) 18.3 % (10.0-50.0); Mean Corpuscular Hemoglobin 28.7 pg (28.0-32.0); Mean Corpuscular Hgb Conc. 33.3 g/dL (32.0-36.0); Mean Corpuscular Volume 86.1 fL (80.0-100.0); Monocytes # (auto) 0.9 10 ^3/uL (0-1.3); Monocytes % (auto) 7.2 % (0.0-12.0); Neutrophils # (auto) 8.6 10 ^3/uL (1.6-8.6); Neutrophils % (auto) 71.4 % (37.0-80.0); Red Blood Cells 4.11 10^6/uL (4.5-5.90); Red Cell Distribution Width 16.4 % (11.8-14.3)
[2021-04-18 04:11] LABS: Potassium 3.7 mmol/L (3.5-5.1)
[2021-04-18 04:16] LABS: Albumin 3.1 g/dL (3.4-5.0); BUN/Creatinine Ratio 29.2; Calcium 8.7 mg/dL (8.5-10.1); Magnesium 2.1 mg/dL (1.6-2.6)
[2021-04-18 04:19] LABS: Bilirubin, Total 0.6 mg/dL (0.2-1.0); Phosphorus 2.8 mg/dL (2.5-4.90); Total Protein 6.4 g/dL (6.4-8.2)
[2021-04-18] MEDS: BUDESONIDE (INHALATION) 0.5 MG/2 ML NEB NEB SCH ×2 (06:14→18:32)
[2021-04-18] MEDS: CEFEPIME 2 GM in SODIUM CHL 0.9% 50 ML IV SCH ×3 (06:36→22:13)
[2021-04-18] MEDS: SODIUM CHLORIDE 0.9% 1,000 ML IV SCH ×3 (06:36→22:14)
[2021-04-18 09:49] LABS: INR 1.24 (0.9-1.15); Partial Thromboplastin Time 28.3 sec (23.6-33.0)
[2021-04-18] MEDS: PANTOPRAZOLE 40 MG/10 ML VIAL INJ IV SCH (10:00)
[2021-04-18] MEDS: ACCU-CHEK COMFORT CURVE STRIP VI SCH ×2 (10:00→22:13)
[2021-04-18] MEDS: QUEtiapine FUMARATE 25 MG TAB PO SCH ×2 (10:00→22:13)
[2021-04-18] MEDS: MULTIPLE VITAMIN TAB PO SCH (10:00)
[2021-04-18] MEDS: ENOXAPARIN SOD 30 MG/0.3 ML SYRINGE SC SCH ×2 (10:00→21:17)
[2021-04-18] MEDS: InsuLIN REG 1unit/0.01ml Soln (100units/ml) SC SCH ×2 (10:00→22:00)
[2021-04-18] MEDS: fentaNYL Drip 2500mCg/250mlNS 250 ML IV SCH (11:45)
[2021-04-18] MEDS ORDERED: MIDAZOLAM HCL 2MG/2ML 2ml VIAL (1mg/ml) ONE (12:44)
[2021-04-18] MEDS ORDERED: HYDROmorphone HCL 2 MG/ML VL ONE (12:44)
[2021-04-18] MEDS ORDERED: KETAMINE HCL 10 ML ONE (13:31)
[2021-04-18] MEDS ORDERED: fentaNYL CITRATE 5 ML ONE (13:59)
[2021-04-18] MEDS ORDERED: SUGAMMADEX 200mg/2ml Vial (100MG/ML) IV ONE (14:21)
[2021-04-18] MEDS ORDERED: HYDROmorphone HCL 2 MG/ML VL IV PRN (14:45)
[2021-04-18] MEDS ORDERED: ONDANSETRON HCL 4 MG/2 ML VIAL IV PRN (14:45)
[2021-04-18] MEDS ORDERED: TPN PER PHARMACY IV NR ×8 (20:00)
[2021-04-18] MEDS: MIDAZOLAM DRIP 50 mg/50mL 50 ML IV SCH ×2 (21:00→21:02)
[2021-04-18] MEDS: NOREPINEPHRINE 8 MG/250ML KIT 250 ML IV SCH ×2 (21:04→22:45)
[2021-04-18] MEDS: PROPOFOL 100 ML IV SCH ×2 (21:04→22:45)
[2021-04-19] VITALS (94 sets, daily range): BP systolic 102–131; BP diastolic 51–79
[2021-04-19] MEDS: ACETYLCYSTEINE 10 %(100MG/ML) SOL 4ML NEB SCH ×4 (00:33→18:48)
[2021-04-19] MEDS: ALBUTEROL SULF 2.5 MG/0.5ML(0.5%) NEB SOLN NEB PRN ×4 (00:33→18:48)
[2021-04-19 04:42] LABS: BUN/Creatinine Ratio 29.2; Calcium 8.7 mg/dL (8.5-10.1); Potassium 3.8 mmol/L (3.5-5.1)
[2021-04-19 04:45] LABS: Bilirubin, Total 0.6 mg/dL (0.2-1.0); Phosphorus 2.9 mg/dL (2.5-4.90); Total Protein 6.3 g/dL (6.4-8.2)
[2021-04-19] MEDS: CEFEPIME 2 GM in SODIUM CHL 0.9% 50 ML IV SCH ×3 (06:15→23:07)
[2021-04-19] MEDS: BUDESONIDE (INHALATION) 0.5 MG/2 ML NEB NEB SCH ×2 (06:21→18:48)
[2021-04-19] MEDS: VANCOMYCIN 1GM/250ML 250 ML IV SCH ×3 (06:29→23:30)
[2021-04-19] MEDS: guaiFENesin-DM 100/10mg/5ml SYR PO PRN (06:29)
[2021-04-19] MEDS: MIDAZOLAM DRIP 50 mg/50mL 50 ML IV SCH (07:00)
[2021-04-19] MEDS: PROPOFOL 100 ML IV SCH (07:00)
[2021-04-19] MEDS: SODIUM CHLORIDE 0.9% 1,000 ML IV SCH ×4 (09:00→22:00)
[2021-04-19] MEDS: InsuLIN REG 1unit/0.01ml Soln (100units/ml) SC SCH ×2 (10:00→23:00)
[2021-04-19] MEDS: PANTOPRAZOLE 40 MG/10 ML VIAL INJ IV SCH (10:15)
[2021-04-19] MEDS: MULTIPLE VITAMIN TAB PO SCH (10:15)
[2021-04-19] MEDS: QUEtiapine FUMARATE 25 MG TAB PO SCH ×2 (10:15→22:45)
[2021-04-19] MEDS: ACCU-CHEK COMFORT CURVE STRIP VI SCH ×2 (10:16→23:00)
[2021-04-19] MEDS: ENOXAPARIN SOD 30 MG/0.3 ML SYRINGE SC SCH ×2 (10:16→22:45)
[2021-04-19] MEDS: fentaNYL Drip 2500mCg/250mlNS 250 ML IV SCH (11:45)
[2021-04-19 16:30] LABS: Basophils # (auto) 0.1 10 ^3/uL (0-0.2); Basophils % (auto) 1.2 % (0.0-2.0); Eosinophils # (auto) 0.3 10 ^3/uL (0-0.8); Eosinophils % (auto) 2.6 % (0.0-7.0); Hematocrit 35.6 % (41.0-53.0); Hemoglobin 11.7 g/dL (13.5-17.5); Lymphocytes # (auto) 2.8 10 ^3/uL (0.4-5.4); Lymphocytes % (auto) 26.8 % (10.0-50.0); Mean Corpuscular Hemoglobin 28.5 pg (28.0-32.0); Mean Corpuscular Volume 86.3 fL (80.0-100.0); Monocytes # (auto) 0.6 10 ^3/uL (0-1.3); Monocytes % (auto) 6.1 % (0.0-12.0); Neutrophils # (auto) 6.7 10 ^3/uL (1.6-8.6); Neutrophils % (auto) 63.3 % (37.0-80.0); Nucleated Red Blood Cells % 0.1 %; Red Blood Cells 4.12 10^6/uL (4.5-5.90); Red Cell Distribution Width 16.2 % (11.8-14.3); White Blood Cell 10.5 10^3/uL (4.4-10.8)
[2021-04-19] MEDS ORDERED: TPN PER PHARMACY IV NR ×8 (20:00)
[2021-04-20] VITALS (52 sets, daily range): BP systolic 102–139; BP diastolic 57–84
[2021-04-20] MEDS: ACETYLCYSTEINE 10 %(100MG/ML) SOL 4ML NEB SCH ×4 (03:09→18:07)
[2021-04-20] MEDS: ALBUTEROL SULF 2.5 MG/0.5ML(0.5%) NEB SOLN NEB PRN ×4 (03:09→18:07)
[2021-04-20 03:41] LABS: Basophils # (auto) 0.1 10 ^3/uL (0-0.2); Basophils % (auto) 1.2 % (0.0-2.0); Eosinophils # (auto) 0.3 10 ^3/uL (0-0.8); Eosinophils % (auto) 2.5 % (0.0-7.0); Hematocrit 37.5 % (41.0-53.0); Hemoglobin 12.5 g/dL (13.5-17.5); Lymphocytes # (auto) 2.2 10 ^3/uL (0.4-5.4); Lymphocytes % (auto) 21.1 % (10.0-50.0); Mean Corpuscular Hemoglobin 28.5 pg (28.0-32.0); Mean Corpuscular Hgb Conc. 33.2 g/dL (32.0-36.0); Mean Corpuscular Volume 85.8 fL (80.0-100.0); Monocytes # (auto) 0.7 10 ^3/uL (0-1.3); Monocytes % (auto) 6.7 % (0.0-12.0); Neutrophils # (auto) 7.3 10 ^3/uL (1.6-8.6); Neutrophils % (auto) 68.5 % (37.0-80.0); Nucleated Red Blood Cells % 0.1 %; Red Blood Cells 4.37 10^6/uL (4.5-5.90); Red Cell Distribution Width 16.3 % (11.8-14.3); White Blood Cell 10.6 10^3/uL (4.4-10.8)
[2021-04-20 04:22] LABS: Albumin 2.9 g/dL (3.4-5.0); BUN/Creatinine Ratio 27.3; Calcium 8.8 mg/dL (8.5-10.1)
[2021-04-20 04:41] LABS: Pre Albumin 26.4 mg/dL (20.0-40.0)
[2021-04-20 04:45] LABS: Bilirubin, Total 0.5 mg/dL (0.2-1.0); Phosphorus 4.2 mg/dL (2.5-4.90); Total Protein 6.4 g/dL (6.4-8.2)
[2021-04-20] MEDS: VANCOMYCIN 1GM/250ML 250 ML IV SCH ×3 (05:39→20:59)
[2021-04-20] MEDS: CEFEPIME 2 GM in SODIUM CHL 0.9% 50 ML IV SCH ×3 (06:08→21:45)
[2021-04-20] MEDS: NOREPINEPHRINE 8 MG/250ML KIT 250 ML IV SCH ×2 (07:00→22:45)
[2021-04-20] MEDS: SODIUM CHLORIDE 0.9% 1,000 ML IV SCH ×2 (07:29→15:18)
[2021-04-20] MEDS: BUDESONIDE (INHALATION) 0.5 MG/2 ML NEB NEB SCH ×2 (08:13→18:07)
[2021-04-20] MEDS: ENOXAPARIN SOD 30 MG/0.3 ML SYRINGE SC SCH ×2 (09:09→21:44)
[2021-04-20] MEDS: PANTOPRAZOLE 40 MG/10 ML VIAL INJ IV SCH (09:09)
[2021-04-20] MEDS: ACCU-CHEK COMFORT CURVE STRIP VI SCH ×2 (09:10→21:46)
[2021-04-20] MEDS: MULTIPLE VITAMIN TAB PO SCH (09:10)
[2021-04-20] MEDS: QUEtiapine FUMARATE 25 MG TAB PO SCH (09:10)
[2021-04-20] MEDS: InsuLIN REG 1unit/0.01ml Soln (100units/ml) SC SCH ×2 (09:10→21:46)
[2021-04-20] MEDS: fentaNYL Drip 2500mCg/250mlNS 250 ML IV SCH (11:45)
[2021-04-20] MEDS ORDERED: FUROSEMIDE 20 MG/2 ML VIAL IV ONE (18:30)
[2021-04-20] MEDS ORDERED: SODIUM ACETATE IV NR ×8 (20:00)
[2021-04-20] MEDS ORDERED: [UNRECOGNIZED DRUG - OTHER] IV NR ×8 (20:00)
[2021-04-20] MEDS ORDERED: POTASSIUM PHOSPHATE IV NR ×8 (20:00)
[2021-04-20] MEDS: MIDAZOLAM DRIP 50 mg/50mL 50 ML IV SCH (21:00)
[2021-04-20] MEDS: GLYCOPYRROLATE 0.2 MG/ML 1ML VIAL IV SCH (21:52)
[2021-04-20] MEDS: PROPOFOL 100 ML IV SCH (22:45)
[2021-04-21] VITALS (52 sets, daily range): BP systolic 102–127; BP diastolic 58–76
[2021-04-21] MEDS: ACETYLCYSTEINE 10 %(100MG/ML) SOL 4ML NEB SCH ×5 (00:33→23:24)
[2021-04-21] MEDS: ALBUTEROL SULF 2.5 MG/0.5ML(0.5%) NEB SOLN NEB PRN ×5 (00:33→23:24)
[2021-04-21] MEDS: VANCOMYCIN 1GM/250ML 250 ML IV SCH ×3 (04:11→18:43)
[2021-04-21 04:24] LABS: Albumin 3.1 g/dL (3.4-5.0); BUN/Creatinine Ratio 30.8; Calcium 8.9 mg/dL (8.5-10.1); Magnesium 1.8 mg/dL (1.6-2.6); Potassium 3.8 mmol/L (3.5-5.1)
[2021-04-21 04:26] LABS: Basophils # (auto) 0.1 10 ^3/uL (0-0.2); Basophils % (auto) 0.6 % (0.0-2.0); Bilirubin, Total 0.5 mg/dL (0.2-1.0); Eosinophils # (auto) 0.4 10 ^3/uL (0-0.8); Eosinophils % (auto) 3.3 % (0.0-7.0); Hematocrit 37.5 % (41.0-53.0); Hemoglobin 12.4 g/dL (13.5-17.5); Mean Corpuscular Hemoglobin 28.6 pg (28.0-32.0); Mean Corpuscular Volume 86.5 fL (80.0-100.0); Monocytes # (auto) 0.8 10 ^3/uL (0-1.3); Monocytes % (auto) 7.3 % (0.0-12.0); Neutrophils % (auto) 70.8 % (37.0-80.0); Nucleated Red Blood Cells % 0.1 %; Red Blood Cells 4.34 10^6/uL (4.5-5.90); Red Cell Distribution Width 16.2 % (11.8-14.3); Total Protein 6.9 g/dL (6.4-8.2); White Blood Cell 11.3 10^3/uL (4.4-10.8)
[2021-04-21] MEDS: CEFEPIME 2 GM in SODIUM CHL 0.9% 50 ML IV SCH ×2 (05:35→15:31)
[2021-04-21] MEDS: GLYCOPYRROLATE 0.2 MG/ML 1ML VIAL IV SCH ×3 (05:36→22:38)
[2021-04-21] MEDS: BUDESONIDE (INHALATION) 0.5 MG/2 ML NEB NEB SCH ×2 (06:53→18:02)
[2021-04-21] MEDS: ACCU-CHEK COMFORT CURVE STRIP VI SCH ×2 (10:00→22:00)
[2021-04-21] MEDS: PANTOPRAZOLE 40 MG/10 ML VIAL INJ IV SCH (10:00)
[2021-04-21] MEDS: ENOXAPARIN SOD 30 MG/0.3 ML SYRINGE SC SCH ×2 (10:00→22:00)
[2021-04-21] MEDS: InsuLIN REG 1unit/0.01ml Soln (100units/ml) SC SCH ×2 (10:00→22:00)
[2021-04-21] MEDS: MULTIPLE VITAMIN TAB PO SCH (10:00)
[2021-04-21] MEDS: fentaNYL Drip 2500mCg/250mlNS 250 ML IV SCH (11:45)
[2021-04-21] MEDS: guaiFENesin-DM 100/10mg/5ml SYR PO PRN (18:20)
[2021-04-21] MEDS: TPN PER PHARMACY IV NR ×8 (19:57)
[2021-04-21] MEDS: MIDAZOLAM DRIP 50 mg/50mL 50 ML IV SCH (21:00)
[2021-04-21] MEDS: NOREPINEPHRINE 8 MG/250ML KIT 250 ML IV SCH (22:45)
[2021-04-21] MEDS: PROPOFOL 100 ML IV SCH (22:45)
[2021-04-22] VITALS (43 sets, daily range): BP systolic 102–128; BP diastolic 59–81
[2021-04-22] MEDS: VANCOMYCIN 1GM/250ML 250 ML IV SCH ×2 (00:33→06:25)
[2021-04-22] MEDS: CEFEPIME 2 GM in SODIUM CHL 0.9% 50 ML IV SCH ×4 (00:36→22:24)
[2021-04-22 04:24] LABS: Basophils # (auto) 0.1 10 ^3/uL (0-0.2); Basophils % (auto) 1.3 % (0.0-2.0); Eosinophils # (auto) 0.3 10 ^3/uL (0-0.8); Hematocrit 37.5 % (41.0-53.0); Hemoglobin 12.7 g/dL (13.5-17.5); Lymphocytes # (auto) 2.5 10 ^3/uL (0.4-5.4); Lymphocytes % (auto) 23.4 % (10.0-50.0); Mean Corpuscular Hgb Conc. 33.8 g/dL (32.0-36.0); Mean Corpuscular Volume 85.6 fL (80.0-100.0); Monocytes # (auto) 0.8 10 ^3/uL (0-1.3); Monocytes % (auto) 7.4 % (0.0-12.0); Neutrophils # (auto) 6.9 10 ^3/uL (1.6-8.6); Neutrophils % (auto) 64.9 % (37.0-80.0); Nucleated Red Blood Cells % 0.3 %; Red Blood Cells 4.38 10^6/uL (4.5-5.90); Red Cell Distribution Width 16.4 % (11.8-14.3); White Blood Cell 10.6 10^3/uL (4.4-10.8)
[2021-04-22] MEDS: ENOXAPARIN SOD 30 MG/0.3 ML SYRINGE SC SCH ×2 (04:30→22:00)
[2021-04-22 04:47] LABS: Albumin 3.1 g/dL (3.4-5.0); Calcium 8.9 mg/dL (8.5-10.1); Magnesium 1.9 mg/dL (1.6-2.6); Potassium 3.9 mmol/L (3.5-5.1)
[2021-04-22 04:49] LABS: BUN/Creatinine Ratio 26.1
[2021-04-22 04:52] LABS: Bilirubin, Total 0.5 mg/dL (0.2-1.0); Phosphorus 3.4 mg/dL (2.5-4.90); Total Protein 6.7 g/dL (6.4-8.2)
[2021-04-22] MEDS: ACETYLCYSTEINE 10 %(100MG/ML) SOL 4ML NEB SCH ×3 (06:11→18:52)
[2021-04-22] MEDS: ALBUTEROL SULF 2.5 MG/0.5ML(0.5%) NEB SOLN NEB PRN ×3 (06:11→18:52)
[2021-04-22] MEDS: BUDESONIDE (INHALATION) 0.5 MG/2 ML NEB NEB SCH ×2 (06:11→18:52)
[2021-04-22] MEDS: GLYCOPYRROLATE 0.2 MG/ML 1ML VIAL IV SCH ×3 (06:24→22:00)
[2021-04-22] MEDS: MULTIPLE VITAMIN TAB PO SCH (10:00)
[2021-04-22] MEDS: ACCU-CHEK COMFORT CURVE STRIP VI SCH ×2 (10:00→22:28)
[2021-04-22] MEDS: InsuLIN REG 1unit/0.01ml Soln (100units/ml) SC SCH ×2 (10:00→22:00)
[2021-04-22] MEDS: PANTOPRAZOLE 40 MG/10 ML VIAL INJ IV SCH ×2 (10:41→22:25)
[2021-04-22] MEDS: fentaNYL Drip 2500mCg/250mlNS 250 ML IV SCH (11:45)
[2021-04-22] MEDS: VANCOMYCIN 750mg/250ml 250 ML IV SCH ×2 (17:12→23:00)
[2021-04-22] MEDS: TPN PER PHARMACY IV NR ×24 (19:48→22:53)
[2021-04-22] MEDS: MIDAZOLAM DRIP 50 mg/50mL 50 ML IV SCH (21:00)
[2021-04-22] MEDS: PROPOFOL 100 ML IV SCH (22:29)
[2021-04-22] MEDS: NOREPINEPHRINE 8 MG/250ML KIT 250 ML IV SCH (22:45)
[2021-04-23] VITALS (50 sets, daily range): BP systolic 96–127; BP diastolic 62–82
[2021-04-23] MEDS: ACETYLCYSTEINE 10 %(100MG/ML) SOL 4ML NEB SCH ×4 (00:56→19:00)
[2021-04-23] MEDS: ALBUTEROL SULF 2.5 MG/0.5ML(0.5%) NEB SOLN NEB PRN ×4 (00:56→18:59)
[2021-04-23] MEDS: VANCOMYCIN 750mg/250ml 250 ML IV SCH ×2 (05:00→11:29)
[2021-04-23] MEDS: CEFEPIME 2 GM in SODIUM CHL 0.9% 50 ML IV SCH ×3 (06:00→22:00)
[2021-04-23] MEDS: GLYCOPYRROLATE 0.2 MG/ML 1ML VIAL IV SCH ×2 (06:00→14:19)
[2021-04-23 06:23] LABS: Basophils # (auto) 0.1 10 ^3/uL (0-0.2); Basophils % (auto) 1.1 % (0.0-2.0); Eosinophils # (auto) 0.3 10 ^3/uL (0-0.8); Eosinophils % (auto) 2.2 % (0.0-7.0); Hematocrit 39.9 % (41.0-53.0); Hemoglobin 13.4 g/dL (13.5-17.5); Lymphocytes # (auto) 2.4 10 ^3/uL (0.4-5.4); Mean Corpuscular Hemoglobin 28.6 pg (28.0-32.0); Mean Corpuscular Hgb Conc. 33.5 g/dL (32.0-36.0); Mean Corpuscular Volume 85.3 fL (80.0-100.0); Monocytes # (auto) 0.9 10 ^3/uL (0-1.3); Monocytes % (auto) 7.4 % (0.0-12.0); Neutrophils # (auto) 8.4 10 ^3/uL (1.6-8.6); Neutrophils % (auto) 69.3 % (37.0-80.0); Nucleated Red Blood Cells % 0.1 %; Red Blood Cells 4.68 10^6/uL (4.5-5.90); Red Cell Distribution Width 16.3 % (11.8-14.3); White Blood Cell 12.1 10^3/uL (4.4-10.8)
[2021-04-23] MEDS: BUDESONIDE (INHALATION) 0.5 MG/2 ML NEB NEB SCH ×2 (06:33→18:59)
[2021-04-23 06:44] LABS: Albumin 3.2 g/dL (3.4-5.0); Calcium 9.2 mg/dL (8.5-10.1); Magnesium 2.2 mg/dL (1.6-2.6); Potassium 3.9 mmol/L (3.5-5.1)
[2021-04-23 06:47] LABS: BUN/Creatinine Ratio 26.7
[2021-04-23 06:50] LABS: Bilirubin, Total 0.6 mg/dL (0.2-1.0); Phosphorus 4.1 mg/dL (2.5-4.90)
[2021-04-23 06:55] LABS: INR 1.36 (0.9-1.15)
[2021-04-23] MEDS: ENOXAPARIN SOD 30 MG/0.3 ML SYRINGE SC SCH ×2 (08:52→22:00)
[2021-04-23] MEDS: MULTIPLE VITAMIN TAB PO SCH (09:41)
[2021-04-23] MEDS: ACCU-CHEK COMFORT CURVE STRIP VI SCH ×2 (09:41→22:00)
[2021-04-23] MEDS: PANTOPRAZOLE 40 MG/10 ML VIAL INJ IV SCH ×2 (09:41→23:06)
[2021-04-23] MEDS: InsuLIN REG 1unit/0.01ml Soln (100units/ml) SC SCH ×2 (09:42→22:00)
[2021-04-23] MEDS: TPN PER PHARMACY IV NR ×7 (20:47)
[2021-04-23] MEDS: MIDAZOLAM DRIP 50 mg/50mL 50 ML IV SCH (21:00)
[2021-04-23] MEDS: PROPOFOL 100 ML IV SCH (22:45)
[2021-04-23] MEDS: NOREPINEPHRINE 8 MG/250ML KIT 250 ML IV SCH (22:45)
[2021-04-24] VITALS (55 sets, daily range): BP systolic 89–141; BP diastolic 53–77
[2021-04-24] MEDS: ACETYLCYSTEINE 10 %(100MG/ML) SOL 4ML NEB SCH ×4 (02:00→18:03)
[2021-04-24] MEDS: ALBUTEROL SULF 2.5 MG/0.5ML(0.5%) NEB SOLN NEB PRN ×4 (02:00→18:03)
[2021-04-24] MEDS: VANCOMYCIN 1GM/250ML 250 ML IV SCH ×3 (02:00→18:07)
[2021-04-24 04:11] LABS: Albumin 3.1 g/dL (3.4-5.0); Calcium 8.9 mg/dL (8.5-10.1); Magnesium 2.2 mg/dL (1.6-2.6); Potassium 3.9 mmol/L (3.5-5.1)
[2021-04-24 04:14] LABS: Bilirubin, Total 0.5 mg/dL (0.2-1.0); Phosphorus 4.2 mg/dL (2.5-4.90); Total Protein 6.6 g/dL (6.4-8.2)
[2021-04-24] MEDS: CEFEPIME 2 GM in SODIUM CHL 0.9% 50 ML IV SCH ×3 (06:00→22:06)
[2021-04-24] MEDS: BUDESONIDE (INHALATION) 0.5 MG/2 ML NEB NEB SCH ×2 (06:14→18:03)
[2021-04-24] MEDS: ACCU-CHEK COMFORT CURVE STRIP VI SCH ×2 (10:00→22:00)
[2021-04-24] MEDS: ENOXAPARIN SOD 30 MG/0.3 ML SYRINGE SC SCH ×2 (10:00→22:07)
[2021-04-24] MEDS: PANTOPRAZOLE 40 MG/10 ML VIAL INJ IV SCH ×2 (10:00→22:05)
[2021-04-24] MEDS: InsuLIN REG 1unit/0.01ml Soln (100units/ml) SC SCH ×2 (10:00→22:00)
[2021-04-24] MEDS: MULTIPLE VITAMIN TAB PO SCH (10:00)
[2021-04-24] MEDS: TPN PER PHARMACY IV NR ×16 (19:54→20:59)
[2021-04-24] MEDS: MIDAZOLAM DRIP 50 mg/50mL 50 ML IV SCH (21:00)
[2021-04-24] MEDS: NOREPINEPHRINE 8 MG/250ML KIT 250 ML IV SCH (22:45)
[2021-04-24] MEDS: PROPOFOL 100 ML IV SCH (22:45)
[2021-04-25] VITALS (7 sets, daily range): BP systolic 115–127; BP diastolic 71–83
[2021-04-25] MEDS: VANCOMYCIN 1GM/250ML 250 ML IV SCH ×3 (02:00→17:49)
[2021-04-25 04:59] LABS: BUN/Creatinine Ratio 28.6; Calcium 9.1 mg/dL (8.5-10.1); Magnesium 2.2 mg/dL (1.6-2.6); Potassium 4.1 mmol/L (3.5-5.1)
[2021-04-25 05:04] LABS: Bilirubin, Total 0.5 mg/dL (0.2-1.0); Phosphorus 3.1 mg/dL (2.5-4.90); Total Protein 6.6 g/dL (6.4-8.2)
[2021-04-25] MEDS: ACETYLCYSTEINE 10 %(100MG/ML) SOL 4ML NEB SCH ×5 (05:47→23:04)
[2021-04-25] MEDS: ALBUTEROL SULF 2.5 MG/0.5ML(0.5%) NEB SOLN NEB PRN ×5 (05:48→23:04)
[2021-04-25] MEDS: BUDESONIDE (INHALATION) 0.5 MG/2 ML NEB NEB SCH ×2 (05:48→17:59)
[2021-04-25] MEDS: CEFEPIME 2 GM in SODIUM CHL 0.9% 50 ML IV SCH ×3 (06:21→22:00)
[2021-04-25] MEDS: PANTOPRAZOLE 40 MG/10 ML VIAL INJ IV SCH ×2 (09:26→22:00)
[2021-04-25] MEDS: MULTIPLE VITAMIN TAB PO SCH (09:26)
[2021-04-25] MEDS: ENOXAPARIN SOD 30 MG/0.3 ML SYRINGE SC SCH ×2 (09:27→22:00)
[2021-04-25] MEDS: InsuLIN REG 1unit/0.01ml Soln (100units/ml) SC SCH ×2 (09:27→22:00)
[2021-04-25] MEDS: ACCU-CHEK COMFORT CURVE STRIP VI SCH ×2 (09:27→22:00)
[2021-04-25] MEDS: TPN PER PHARMACY IV NR ×9 (19:59)
[2021-04-25] MEDS ORDERED: TPN PER PHARMACY IV NR ×8 (20:00)
[2021-04-25] MEDS: MIDAZOLAM DRIP 50 mg/50mL 50 ML IV SCH (21:00)
[2021-04-25] MEDS: NOREPINEPHRINE 8 MG/250ML KIT 250 ML IV SCH (22:45)
[2021-04-25] MEDS: PROPOFOL 100 ML IV SCH (22:45)
[2021-04-26] VITALS: BP 124/81
[2021-04-26] MEDS: VANCOMYCIN 1GM/250ML 250 ML IV SCH ×3 (02:29→18:21)
[2021-04-26 05:00] VITALS: BP 125/74
[2021-04-26 05:06] LABS: Albumin 3.1 g/dL (3.4-5.0); Calcium 8.7 mg/dL (8.5-10.1); Magnesium 2.1 mg/dL (1.6-2.6); Potassium 3.8 mmol/L (3.5-5.1)
[2021-04-26 05:08] LABS: BUN/Creatinine Ratio 24.1
[2021-04-26 05:11] LABS: Bilirubin, Total 0.4 mg/dL (0.2-1.0); Phosphorus 3.8 mg/dL (2.5-4.90); Total Protein 6.6 g/dL (6.4-8.2)
[2021-04-26] MEDS: CEFEPIME 2 GM in SODIUM CHL 0.9% 50 ML IV SCH ×3 (06:14→22:00)
[2021-04-26] MEDS: ACETYLCYSTEINE 10 %(100MG/ML) SOL 4ML NEB SCH ×3 (06:28→19:21)
[2021-04-26] MEDS: ALBUTEROL SULF 2.5 MG/0.5ML(0.5%) NEB SOLN NEB PRN ×3 (06:29→19:22)
[2021-04-26 08:00] VITALS: BP 114/73
[2021-04-26] MEDS: ACCU-CHEK COMFORT CURVE STRIP VI SCH ×2 (10:00→22:00)
[2021-04-26] MEDS: MULTIPLE VITAMIN TAB PO SCH (10:00)
[2021-04-26] MEDS: InsuLIN REG 1unit/0.01ml Soln (100units/ml) SC SCH ×2 (10:00→22:00)
[2021-04-26] MEDS: PANTOPRAZOLE 40 MG/10 ML VIAL INJ IV SCH ×2 (10:04→22:00)
[2021-04-26 10:09] LABS: Basophils # (auto) 0.3 10 ^3/uL (0-0.2); Basophils % (auto) 2.4 % (0.0-2.0); Eosinophils # (auto) 0.2 10 ^3/uL (0-0.8); Eosinophils % (auto) 1.9 % (0.0-7.0); Hematocrit 39.5 % (41.0-53.0); Hemoglobin 12.9 g/dL (13.5-17.5); Lymphocytes # (auto) 2.3 10 ^3/uL (0.4-5.4); Lymphocytes % (auto) 19.8 % (10.0-50.0); Mean Corpuscular Hemoglobin 28.5 pg (28.0-32.0); Mean Corpuscular Hgb Conc. 32.6 g/dL (32.0-36.0); Mean Corpuscular Volume 87.4 fL (80.0-100.0); Monocytes # (auto) 0.8 10 ^3/uL (0-1.3); Monocytes % (auto) 6.7 % (0.0-12.0); Neutrophils % (auto) 69.2 % (37.0-80.0); Nucleated Red Blood Cells % 0.1 %; Red Blood Cells 4.52 10^6/uL (4.5-5.90); Red Cell Distribution Width 16.2 % (11.8-14.3); White Blood Cell 11.5 10^3/uL (4.4-10.8)
[2021-04-26] MEDS: BUDESONIDE (INHALATION) 0.5 MG/2 ML NEB NEB SCH ×2 (10:44→19:22)
[2021-04-26] MEDS: ENOXAPARIN SOD 40 MG/0.4 ML SYRINGE SC SCH (10:53)
[2021-04-26 11:03] LABS: INR 1.28 (0.9-1.15); Partial Thromboplastin Time 30.8 sec (23.6-33.0)
[2021-04-26 12:00] VITALS: BP 116/67
[2021-04-26 16:00] VITALS: BP 120/75
[2021-04-26 20:00] VITALS: BP 110/72
[2021-04-26] MEDS ORDERED: TPN PER PHARMACY IV NR ×9 (20:00)
[2021-04-26] MEDS: MIDAZOLAM DRIP 50 mg/50mL 50 ML IV SCH (21:00)
[2021-04-26] MEDS: PROPOFOL 100 ML IV SCH (22:45)
[2021-04-26] MEDS: NOREPINEPHRINE 8 MG/250ML KIT 250 ML IV SCH (22:45)
[2021-04-27] MEDS: ALBUTEROL SULF 2.5 MG/0.5ML(0.5%) NEB SOLN NEB PRN ×3 (01:05→19:01)
[2021-04-27] MEDS: ACETYLCYSTEINE 10 %(100MG/ML) SOL 4ML NEB SCH ×4 (01:06→19:01)
[2021-04-27] MEDS: VANCOMYCIN 1GM/250ML 250 ML IV SCH ×2 (01:34→10:25)
[2021-04-27 04:00] VITALS: BP 111/68
[2021-04-27 04:26] LABS: BUN/Creatinine Ratio 21.4; Calcium 8.7 mg/dL (8.5-10.1); Magnesium 2.2 mg/dL (1.6-2.6); Potassium 3.9 mmol/L (3.5-5.1)
[2021-04-27 04:28] LABS: Bilirubin, Total 0.5 mg/dL (0.2-1.0); Total Protein 6.5 g/dL (6.4-8.2)
[2021-04-27 04:29] LABS: Pre Albumin 21.1 mg/dL (20.0-40.0)
[2021-04-27] MEDS: CEFEPIME 2 GM in SODIUM CHL 0.9% 50 ML IV SCH ×2 (05:35→14:50)
[2021-04-27] MEDS: BUDESONIDE (INHALATION) 0.5 MG/2 ML NEB NEB SCH ×2 (06:56→19:01)
[2021-04-27 08:00] VITALS: BP 126/72
[2021-04-27] MEDS: InsuLIN REG 1unit/0.01ml Soln (100units/ml) SC SCH ×2 (10:00→21:27)
[2021-04-27] MEDS: MULTIPLE VITAMIN TAB PO SCH (10:00)
[2021-04-27] MEDS: PANTOPRAZOLE 40 MG/10 ML VIAL INJ IV SCH ×2 (10:25→21:27)
[2021-04-27] MEDS: ACCU-CHEK COMFORT CURVE STRIP VI SCH ×2 (10:26→21:27)
[2021-04-27] MEDS: ENOXAPARIN SOD 40 MG/0.4 ML SYRINGE SC SCH (10:26)
[2021-04-27 12:00] VITALS: BP 124/79
[2021-04-27 16:00] VITALS: BP 149/87
[2021-04-27 19:30] VITALS: BP 149/87
[2021-04-27] MEDS ORDERED: TPN PER PHARMACY IV NR ×9 (20:00)
[2021-04-27] MEDS ORDERED: VANCOMYCIN 1GM/250ML 250 ML IV ONE (20:30)
[2021-04-27 21:00] VITALS: BP 145/74
[2021-04-27] MEDS: NOREPINEPHRINE 8 MG/250ML KIT 250 ML IV SCH (22:45)
[2021-04-28] VITALS (10 sets, daily range): BP systolic 120–148; BP diastolic 70–98
[2021-04-28] MEDS: ACETYLCYSTEINE 10 %(100MG/ML) SOL 4ML NEB SCH ×4 (00:20→18:31)
[2021-04-28] MEDS: ALBUTEROL SULF 2.5 MG/0.5ML(0.5%) NEB SOLN NEB PRN ×3 (00:21→18:31)
[2021-04-28 04:33] LABS: Albumin 3.2 g/dL (3.4-5.0); BUN/Creatinine Ratio 24.1; Calcium 9.1 mg/dL (8.5-10.1)
[2021-04-28 04:37] LABS: Bilirubin, Total 0.5 mg/dL (0.2-1.0); Magnesium 2.1 mg/dL (1.6-2.6); Phosphorus 3.9 mg/dL (2.5-4.90); Total Protein 6.7 g/dL (6.4-8.2)
[2021-04-28] MEDS: BUDESONIDE (INHALATION) 0.5 MG/2 ML NEB NEB SCH ×2 (07:21→18:32)
[2021-04-28] MEDS: PANTOPRAZOLE 40 MG/10 ML VIAL INJ IV SCH ×2 (09:20→21:28)
[2021-04-28] MEDS: MULTIPLE VITAMIN TAB PO SCH (09:20)
[2021-04-28] MEDS: ENOXAPARIN SOD 40 MG/0.4 ML SYRINGE SC SCH (09:30)
[2021-04-28] MEDS: InsuLIN REG 1unit/0.01ml Soln (100units/ml) SC SCH ×2 (09:31→21:27)
[2021-04-28] MEDS: ACCU-CHEK COMFORT CURVE STRIP VI SCH ×2 (09:31→21:28)
[2021-04-28] MEDS ORDERED: IOHEXOL 300 MG/ML 100ML BOTTLE IJ ONE (15:34)
[2021-04-28] MEDS ORDERED: TPN PER PHARMACY IV NR ×9 (20:00)
[2021-04-28] MEDS: NOREPINEPHRINE 8 MG/250ML KIT 250 ML IV SCH (22:45)
[2021-04-29] VITALS (9 sets, daily range): BP systolic 117–154; BP diastolic 66–80
[2021-04-29] MEDS: ALBUTEROL SULF 2.5 MG/0.5ML(0.5%) NEB SOLN NEB PRN ×4 (00:27→18:26)
[2021-04-29] MEDS: ACETYLCYSTEINE 10 %(100MG/ML) SOL 4ML NEB SCH ×4 (00:27→18:26)
[2021-04-29 04:54] LABS: Basophils # (auto) 0.1 10 ^3/uL (0-0.2); Basophils % (auto) 0.9 % (0.0-2.0); Eosinophils # (auto) 0.3 10 ^3/uL (0-0.8); Eosinophils % (auto) 2.7 % (0.0-7.0); Hematocrit 40.8 % (41.0-53.0); Hemoglobin 13.5 g/dL (13.5-17.5); Lymphocytes # (auto) 3.2 10 ^3/uL (0.4-5.4); Lymphocytes % (auto) 28.4 % (10.0-50.0); Mean Corpuscular Hemoglobin 28.3 pg (28.0-32.0); Mean Corpuscular Hgb Conc. 33.1 g/dL (32.0-36.0); Mean Corpuscular Volume 85.6 fL (80.0-100.0); Monocytes # (auto) 0.9 10 ^3/uL (0-1.3); Monocytes % (auto) 8.5 % (0.0-12.0); Neutrophils # (auto) 6.7 10 ^3/uL (1.6-8.6); Neutrophils % (auto) 59.5 % (37.0-80.0); Nucleated Red Blood Cells % 0.2 %; Red Blood Cells 4.76 10^6/uL (4.5-5.90); Red Cell Distribution Width 15.9 % (11.8-14.3); White Blood Cell 11.2 10^3/uL (4.4-10.8)
[2021-04-29 05:10] LABS: Potassium 3.9 mmol/L (3.5-5.1)
[2021-04-29 05:16] LABS: Albumin 3.2 g/dL (3.4-5.0); BUN/Creatinine Ratio 18.4; Calcium 9.1 mg/dL (8.5-10.1); Magnesium 2.3 mg/dL (1.6-2.6)
[2021-04-29 05:19] LABS: Bilirubin, Total 0.5 mg/dL (0.2-1.0); Phosphorus 4.6 mg/dL (2.5-4.90); Total Protein 7.1 g/dL (6.4-8.2)
[2021-04-29] MEDS: BUDESONIDE (INHALATION) 0.5 MG/2 ML NEB NEB SCH ×2 (06:41→18:26)
[2021-04-29] MEDS: MULTIPLE VITAMIN TAB PO SCH (07:40)
[2021-04-29] MEDS: ENOXAPARIN SOD 40 MG/0.4 ML SYRINGE SC SCH (09:11)
[2021-04-29] MEDS: PANTOPRAZOLE 40 MG/10 ML VIAL INJ IV SCH ×2 (09:11→21:56)
[2021-04-29] MEDS: InsuLIN REG 1unit/0.01ml Soln (100units/ml) SC SCH ×2 (10:00→21:56)
[2021-04-29] MEDS: ACCU-CHEK COMFORT CURVE STRIP VI SCH ×2 (10:00→21:56)
[2021-04-29] MEDS ORDERED: TPN PER PHARMACY IV NR ×10 (20:00)
[2021-04-29] MEDS: NOREPINEPHRINE 8 MG/250ML KIT 250 ML IV SCH (22:45)
[2021-04-30] MEDS: ALBUTEROL SULF 2.5 MG/0.5ML(0.5%) NEB SOLN NEB PRN ×4 (00:33→18:22)
[2021-04-30] MEDS: ACETYLCYSTEINE 10 %(100MG/ML) SOL 4ML NEB SCH ×5 (00:33→18:23)
[2021-04-30 04:00] VITALS: BP 96/51
[2021-04-30 04:44] LABS: Albumin 3.3 g/dL (3.4-5.0); Calcium 8.8 mg/dL (8.5-10.1); Magnesium 2.2 mg/dL (1.6-2.6)
[2021-04-30 04:49] LABS: BUN/Creatinine Ratio 17.9; Bilirubin, Total 0.6 mg/dL (0.2-1.0); Phosphorus 4.3 mg/dL (2.5-4.90)
[2021-04-30] MEDS: BUDESONIDE (INHALATION) 0.5 MG/2 ML NEB NEB SCH ×2 (05:23→18:23)
[2021-04-30 08:00] VITALS: BP 117/71
[2021-04-30] MEDS: MULTIPLE VITAMIN TAB PO SCH (08:39)
[2021-04-30] MEDS ORDERED: BISACODYL 10 MG RECT SUPP PR ONE (09:45)
[2021-04-30] MEDS: PANTOPRAZOLE 40 MG/10 ML VIAL INJ IV SCH ×2 (09:48→21:33)
[2021-04-30] MEDS: InsuLIN REG 1unit/0.01ml Soln (100units/ml) SC SCH ×2 (10:00→21:44)
[2021-04-30] MEDS: ACCU-CHEK COMFORT CURVE STRIP VI SCH ×2 (10:19→21:45)
[2021-04-30] MEDS: ENOXAPARIN SOD 40 MG/0.4 ML SYRINGE SC SCH (10:40)
[2021-04-30 12:00] VITALS: BP 98/60
[2021-04-30 16:00] VITALS: BP 132/68
[2021-04-30 20:00] VITALS: BP 123/66
[2021-04-30] MEDS ORDERED: TPN PER PHARMACY IV NR ×10 (20:00)
[2021-04-30 20:53] VITALS: BP 123/65
[2021-04-30] MEDS: NOREPINEPHRINE 8 MG/250ML KIT 250 ML IV SCH (22:45)
[2021-05-01] VITALS: BP 142/75
[2021-05-01] MEDS: ACETYLCYSTEINE 10 %(100MG/ML) SOL 4ML NEB SCH ×4 (00:23→18:31)
[2021-05-01] MEDS: ALBUTEROL SULF 2.5 MG/0.5ML(0.5%) NEB SOLN NEB PRN ×4 (00:23→18:31)
[2021-05-01 04:35] LABS: Basophils # (auto) 0.1 10 ^3/uL (0-0.2); Basophils % (auto) 0.8 % (0.0-2.0); Eosinophils # (auto) 0.2 10 ^3/uL (0-0.8); Hematocrit 40.6 % (41.0-53.0); Hemoglobin 13.4 g/dL (13.5-17.5); Lymphocytes # (auto) 2.9 10 ^3/uL (0.4-5.4); Lymphocytes % (auto) 23.8 % (10.0-50.0); Mean Corpuscular Hemoglobin 28.2 pg (28.0-32.0); Mean Corpuscular Hgb Conc. 33.1 g/dL (32.0-36.0); Mean Corpuscular Volume 85.3 fL (80.0-100.0); Monocytes % (auto) 8.7 % (0.0-12.0); Neutrophils # (auto) 7.7 10 ^3/uL (1.6-8.6); Neutrophils % (auto) 64.7 % (37.0-80.0); Nucleated Red Blood Cells % 0.1 %; Red Blood Cells 4.76 10^6/uL (4.5-5.90); Red Cell Distribution Width 15.7 % (11.8-14.3)
[2021-05-01 04:48] LABS: Potassium 3.9 mmol/L (3.5-5.1)
[2021-05-01 04:52] LABS: Albumin 3.3 g/dL (3.4-5.0); BUN/Creatinine Ratio 16.7; Calcium 8.9 mg/dL (8.5-10.1); Magnesium 2.2 mg/dL (1.6-2.6)
[2021-05-01 04:55] LABS: Bilirubin, Total 0.5 mg/dL (0.2-1.0); Phosphorus 4.1 mg/dL (2.5-4.90); Total Protein 6.8 g/dL (6.4-8.2)
[2021-05-01 05:00] VITALS: BP 150/79
[2021-05-01] MEDS: BUDESONIDE (INHALATION) 0.5 MG/2 ML NEB NEB SCH ×2 (05:59→18:31)
[2021-05-01 08:00] VITALS: BP 137/65
[2021-05-01] MEDS: MULTIPLE VITAMIN TAB PO SCH (10:00)
[2021-05-01] MEDS: InsuLIN REG 1unit/0.01ml Soln (100units/ml) SC SCH ×2 (10:00→21:45)
[2021-05-01] MEDS: ACCU-CHEK COMFORT CURVE STRIP VI SCH ×2 (10:00→21:36)
[2021-05-01] MEDS: PANTOPRAZOLE 40 MG/10 ML VIAL INJ IV SCH ×2 (10:19→21:35)
[2021-05-01] MEDS: ENOXAPARIN SOD 40 MG/0.4 ML SYRINGE SC SCH (10:19)
[2021-05-01 12:00] VITALS: BP 130/75
[2021-05-01 16:00] VITALS: BP 142/91
[2021-05-01 20:00] VITALS: BP 138/75
[2021-05-01] MEDS ORDERED: TPN PER PHARMACY IV NR ×10 (20:00)
[2021-05-01] MEDS: NOREPINEPHRINE 8 MG/250ML KIT 250 ML IV SCH (22:40)
[2021-05-02] VITALS (7 sets, daily range): BP systolic 114–133; BP diastolic 40–81
[2021-05-02] MEDS: ALBUTEROL SULF 2.5 MG/0.5ML(0.5%) NEB SOLN NEB PRN ×4 (00:20→18:50)
[2021-05-02] MEDS: ACETYLCYSTEINE 10 %(100MG/ML) SOL 4ML NEB SCH ×5 (00:20→23:55)
[2021-05-02 06:32] LABS: Potassium 4.2 mmol/L (3.5-5.1)
[2021-05-02 06:36] LABS: Basophils # (auto) 0.1 10 ^3/uL (0-0.2); Basophils % (auto) 0.9 % (0.0-2.0); Eosinophils # (auto) 0.2 10 ^3/uL (0-0.8); Eosinophils % (auto) 1.9 % (0.0-7.0); Hematocrit 40.9 % (41.0-53.0); Hemoglobin 13.8 g/dL (13.5-17.5); Lymphocytes # (auto) 2.5 10 ^3/uL (0.4-5.4); Lymphocytes % (auto) 24.9 % (10.0-50.0); Mean Corpuscular Hemoglobin 28.8 pg (28.0-32.0); Mean Corpuscular Hgb Conc. 33.8 g/dL (32.0-36.0); Monocytes # (auto) 0.8 10 ^3/uL (0-1.3); Monocytes % (auto) 8.2 % (0.0-12.0); Neutrophils # (auto) 6.3 10 ^3/uL (1.6-8.6); Neutrophils % (auto) 64.1 % (37.0-80.0); Nucleated Red Blood Cells % 0.1 %; Red Blood Cells 4.81 10^6/uL (4.5-5.90); Red Cell Distribution Width 15.6 % (11.8-14.3); White Blood Cell 9.9 10^3/uL (4.4-10.8)
[2021-05-02 06:37] LABS: Albumin 3.3 g/dL (3.4-5.0); BUN/Creatinine Ratio 22.2; Bilirubin, Total 0.5 mg/dL (0.2-1.0); Calcium 8.7 mg/dL (8.5-10.1); Magnesium 2.4 mg/dL (1.6-2.6); Phosphorus 4.4 mg/dL (2.5-4.90); Total Protein 6.7 g/dL (6.4-8.2)
[2021-05-02] MEDS: BUDESONIDE (INHALATION) 0.5 MG/2 ML NEB NEB SCH ×2 (07:32→18:50)
[2021-05-02] MEDS: MULTIPLE VITAMIN TAB PO SCH (09:31)
[2021-05-02] MEDS: ENOXAPARIN SOD 40 MG/0.4 ML SYRINGE SC SCH (09:32)
[2021-05-02] MEDS: PANTOPRAZOLE 40 MG/10 ML VIAL INJ IV SCH ×2 (09:32→20:53)
[2021-05-02] MEDS: ACCU-CHEK COMFORT CURVE STRIP VI SCH ×2 (09:46→20:54)
[2021-05-02] MEDS: InsuLIN REG 1unit/0.01ml Soln (100units/ml) SC SCH ×2 (09:46→21:58)
[2021-05-02] MEDS: NOREPINEPHRINE 8 MG/250ML KIT 250 ML IV SCH (19:32)
[2021-05-02] MEDS ORDERED: TPN PER PHARMACY IV NR ×19 (20:00)
[2021-05-03] VITALS: BP 114/74
[2021-05-03 04:00] VITALS: BP 123/72
[2021-05-03 04:24] LABS: Basophils # (auto) 0.1 10 ^3/uL (0-0.2); Basophils % (auto) 1.2 % (0.0-2.0); Eosinophils # (auto) 0.2 10 ^3/uL (0-0.8); Eosinophils % (auto) 1.7 % (0.0-7.0); Hematocrit 40.2 % (41.0-53.0); Hemoglobin 13.5 g/dL (13.5-17.5); Lymphocytes # (auto) 2.9 10 ^3/uL (0.4-5.4); Lymphocytes % (auto) 26.6 % (10.0-50.0); Mean Corpuscular Hemoglobin 28.4 pg (28.0-32.0); Mean Corpuscular Hgb Conc. 33.6 g/dL (32.0-36.0); Mean Corpuscular Volume 84.5 fL (80.0-100.0); Monocytes # (auto) 0.9 10 ^3/uL (0-1.3); Monocytes % (auto) 8.3 % (0.0-12.0); Neutrophils # (auto) 6.8 10 ^3/uL (1.6-8.6); Neutrophils % (auto) 62.2 % (37.0-80.0); Nucleated Red Blood Cells % 0.1 %; Red Blood Cells 4.76 10^6/uL (4.5-5.90); Red Cell Distribution Width 15.7 % (11.8-14.3)
[2021-05-03 04:33] LABS: Albumin 3.2 g/dL (3.4-5.0); Calcium 8.9 mg/dL (8.5-10.1); Magnesium 2.2 mg/dL (1.6-2.6); Potassium 3.7 mmol/L (3.5-5.1)
[2021-05-03 04:36] LABS: Bilirubin, Total 0.4 mg/dL (0.2-1.0); Total Protein 6.7 g/dL (6.4-8.2)
[2021-05-03] MEDS: ALBUTEROL SULF 2.5 MG/0.5ML(0.5%) NEB SOLN NEB PRN ×3 (07:51→19:00)
[2021-05-03] MEDS: ACETYLCYSTEINE 10 %(100MG/ML) SOL 4ML NEB SCH ×3 (07:52→19:00)
[2021-05-03] MEDS: BUDESONIDE (INHALATION) 0.5 MG/2 ML NEB NEB SCH ×2 (07:52→19:00)
[2021-05-03 08:00] VITALS: BP 129/75
[2021-05-03] MEDS: MULTIPLE VITAMIN TAB PO SCH (09:24)
[2021-05-03] MEDS: PANTOPRAZOLE 40 MG/10 ML VIAL INJ IV SCH ×2 (09:24→20:59)
[2021-05-03] MEDS: InsuLIN REG 1unit/0.01ml Soln (100units/ml) SC SCH ×2 (09:24→21:10)
[2021-05-03] MEDS: ENOXAPARIN SOD 40 MG/0.4 ML SYRINGE SC SCH (09:24)
[2021-05-03] MEDS: ACCU-CHEK COMFORT CURVE STRIP VI SCH ×2 (09:25→21:10)
[2021-05-03] MEDS: KETOROLAC TROMETH 30 MG/ML 1ML VIAL IV PRN (10:45)
[2021-05-03 12:00] VITALS: BP 140/74
[2021-05-03 16:00] VITALS: BP 135/82
[2021-05-03] MEDS: NOREPINEPHRINE 8 MG/250ML KIT 250 ML IV SCH (19:07)
[2021-05-03 20:00] VITALS: BP 167/85
[2021-05-03] MEDS ORDERED: TPN PER PHARMACY IV NR ×9 (20:00)
[2021-05-04] VITALS (10 sets, daily range): BP systolic 130–151; BP diastolic 67–81
[2021-05-04 04:42] LABS: Albumin 3.2 g/dL (3.4-5.0); Magnesium 2.4 mg/dL (1.6-2.6); Potassium 4.1 mmol/L (3.5-5.1)
[2021-05-04 04:49] LABS: BUN/Creatinine Ratio 17.9; Bilirubin, Total 0.4 mg/dL (0.2-1.0); Phosphorus 4.4 mg/dL (2.5-4.90); Total Protein 6.7 g/dL (6.4-8.2)
[2021-05-04] MEDS: BUDESONIDE (INHALATION) 0.5 MG/2 ML NEB NEB SCH ×2 (07:16→22:27)
[2021-05-04] MEDS: ALBUTEROL SULF 2.5 MG/0.5ML(0.5%) NEB SOLN NEB PRN (07:16)
[2021-05-04] MEDS: ACETYLCYSTEINE 10 %(100MG/ML) SOL 4ML NEB SCH ×2 (07:17)
[2021-05-04] MEDS: MULTIPLE VITAMIN TAB PO SCH (09:38)
[2021-05-04] MEDS: PANTOPRAZOLE 40 MG/10 ML VIAL INJ IV SCH ×2 (09:38→21:36)
[2021-05-04] MEDS: ENOXAPARIN SOD 40 MG/0.4 ML SYRINGE SC SCH (09:38)
[2021-05-04] MEDS: InsuLIN REG 1unit/0.01ml Soln (100units/ml) SC SCH ×2 (10:00→21:59)
[2021-05-04] MEDS: ACCU-CHEK COMFORT CURVE STRIP VI SCH ×2 (10:00→21:36)
[2021-05-04] MEDS: KETOROLAC TROMETH 30 MG/ML 1ML VIAL IV PRN (17:06)
[2021-05-04] MEDS ORDERED: TPN PER PHARMACY IV NR ×9 (20:00)
[2021-05-04] MEDS: NOREPINEPHRINE 8 MG/250ML KIT 250 ML IV SCH (22:45)
[2021-05-05] VITALS (20 sets, daily range): BP systolic 120–163; BP diastolic 65–86
[2021-05-05] MEDS: KETOROLAC TROMETH 30 MG/ML 1ML VIAL IV PRN ×2 (03:49→08:34)
[2021-05-05 04:03] LABS: Albumin 3.1 g/dL (3.4-5.0); Calcium 8.7 mg/dL (8.5-10.1); Magnesium 2.3 mg/dL (1.6-2.6); Potassium 4.1 mmol/L (3.5-5.1)
[2021-05-05 04:05] LABS: BUN/Creatinine Ratio 23.1
[2021-05-05 04:08] LABS: Bilirubin, Total 0.5 mg/dL (0.2-1.0); Phosphorus 4.2 mg/dL (2.5-4.90); Total Protein 6.6 g/dL (6.4-8.2)
[2021-05-05] MEDS: BUDESONIDE (INHALATION) 0.5 MG/2 ML NEB NEB SCH ×2 (05:45→22:11)
[2021-05-05] MEDS: MULTIPLE VITAMIN TAB PO SCH (09:43)
[2021-05-05] MEDS: ENOXAPARIN SOD 40 MG/0.4 ML SYRINGE SC SCH (09:43)
[2021-05-05] MEDS: PANTOPRAZOLE 40 MG/10 ML VIAL INJ IV SCH ×2 (09:43→22:00)
[2021-05-05] MEDS: ACCU-CHEK COMFORT CURVE STRIP VI SCH ×2 (10:00→22:00)
[2021-05-05] MEDS: InsuLIN REG 1unit/0.01ml Soln (100units/ml) SC SCH ×2 (10:00→22:00)
[2021-05-05] MEDS ORDERED: TPN PER PHARMACY IV NR ×9 (20:00)
[2021-05-05] MEDS: ALBUTEROL SULF 2.5 MG/0.5ML(0.5%) NEB SOLN NEB PRN (22:12)
[2021-05-05] MEDS: NOREPINEPHRINE 8 MG/250ML KIT 250 ML IV SCH (22:45)
[2021-05-06] VITALS (19 sets, daily range): BP systolic 110–186; BP diastolic 56–95
[2021-05-06 04:12] LABS: Basophils # (auto) 0 10 ^3/uL (0-0.2); Basophils % (auto) 0.4 % (0.0-2.0); Eosinophils # (auto) 0.2 10 ^3/uL (0-0.8); Eosinophils % (auto) 1.7 % (0.0-7.0); Hematocrit 38.1 % (41.0-53.0); Hemoglobin 12.9 g/dL (13.5-17.5); Lymphocytes # (auto) 2.5 10 ^3/uL (0.4-5.4); Lymphocytes % (auto) 25.4 % (10.0-50.0); Mean Corpuscular Hemoglobin 28.8 pg (28.0-32.0); Mean Corpuscular Hgb Conc. 33.7 g/dL (32.0-36.0); Mean Corpuscular Volume 85.4 fL (80.0-100.0); Monocytes % (auto) 10.3 % (0.0-12.0); Neutrophils % (auto) 62.2 % (37.0-80.0); Red Blood Cells 4.46 10^6/uL (4.5-5.90); Red Cell Distribution Width 15.8 % (11.8-14.3); White Blood Cell 9.7 10^3/uL (4.4-10.8)
[2021-05-06 04:33] LABS: Albumin 3.1 g/dL (3.4-5.0); BUN/Creatinine Ratio 26.3; Calcium 8.7 mg/dL (8.5-10.1); Magnesium 2.2 mg/dL (1.6-2.6)
[2021-05-06 04:35] LABS: Bilirubin, Total 0.5 mg/dL (0.2-1.0); Phosphorus 4.1 mg/dL (2.5-4.90); Total Protein 6.5 g/dL (6.4-8.2)
[2021-05-06] MEDS: BUDESONIDE (INHALATION) 0.5 MG/2 ML NEB NEB SCH ×2 (06:33→21:48)
[2021-05-06] MEDS: ALBUTEROL SULF 2.5 MG/0.5ML(0.5%) NEB SOLN NEB PRN (06:33)
[2021-05-06] MEDS: InsuLIN REG 1unit/0.01ml Soln (100units/ml) SC SCH ×2 (10:00→21:56)
[2021-05-06] MEDS: ACCU-CHEK COMFORT CURVE STRIP VI SCH ×2 (10:00→21:56)
[2021-05-06] MEDS: PANTOPRAZOLE 40 MG/10 ML VIAL INJ IV SCH (10:14)
[2021-05-06] MEDS: MULTIPLE VITAMIN TAB PO SCH (10:14)
[2021-05-06] MEDS: KETOROLAC TROMETH 30 MG/ML 1ML VIAL IV PRN (10:16)
[2021-05-06] MEDS: ENOXAPARIN SOD 40 MG/0.4 ML SYRINGE SC SCH (10:16)
[2021-05-06] MEDS ORDERED: TPN PER PHARMACY IV NR ×9 (20:00)
[2021-05-06] MEDS: levETIRAcetam 500 MG TAB PO SCH (21:57)
[2021-05-06] MEDS ORDERED: ONDANSETRON HCL 4 MG/2 ML VIAL IV PRN (22:15)
[2021-05-06] MEDS: NOREPINEPHRINE 8 MG/250ML KIT 250 ML IV SCH (22:45)
[2021-05-07] VITALS (21 sets, daily range): BP systolic 103–154; BP diastolic 52–92
[2021-05-07 04:20] LABS: Potassium 4.2 mmol/L (3.5-5.1)
[2021-05-07 04:24] LABS: Albumin 3.1 g/dL (3.4-5.0); BUN/Creatinine Ratio 20.5; Calcium 8.5 mg/dL (8.5-10.1); Magnesium 2.2 mg/dL (1.6-2.6)
[2021-05-07 04:26] LABS: Bilirubin, Total 0.5 mg/dL (0.2-1.0); Phosphorus 4.1 mg/dL (2.5-4.90); Total Protein 6.5 g/dL (6.4-8.2)
[2021-05-07] MEDS: KETOROLAC TROMETH 30 MG/ML 1ML VIAL IV PRN ×3 (05:45→18:45)
[2021-05-07] MEDS: ACCU-CHEK COMFORT CURVE STRIP VI SCH ×2 (09:25→22:00)
[2021-05-07] MEDS: InsuLIN REG 1unit/0.01ml Soln (100units/ml) SC SCH ×2 (09:25→22:00)
[2021-05-07] MEDS: ENOXAPARIN SOD 40 MG/0.4 ML SYRINGE SC SCH (10:33)
[2021-05-07] MEDS: MULTIPLE VITAMIN TAB PO SCH (10:33)
[2021-05-07] MEDS: levETIRAcetam 500 MG TAB PO SCH ×2 (10:33→22:00)
[2021-05-07] MEDS: PANTOPRAZOLE 40 MG TAB PO SCH (10:33)
[2021-05-07] MEDS: BUDESONIDE (INHALATION) 0.5 MG/2 ML NEB NEB SCH ×2 (18:46→22:00)
[2021-05-07] MEDS: ALBUTEROL SULF 2.5 MG/0.5ML(0.5%) NEB SOLN NEB PRN (18:46)
[2021-05-08] VITALS (24 sets, daily range): BP systolic 109–170; BP diastolic 55–94
[2021-05-08 04:13] LABS: Basophils # (auto) 0.1 10 ^3/uL (0-0.2); Basophils % (auto) 0.7 % (0.0-2.0); Eosinophils # (auto) 0.3 10 ^3/uL (0-0.8); Eosinophils % (auto) 2.1 % (0.0-7.0); Hematocrit 39.2 % (41.0-53.0); Lymphocytes # (auto) 2.8 10 ^3/uL (0.4-5.4); Lymphocytes % (auto) 22.1 % (10.0-50.0); Mean Corpuscular Hemoglobin 28.1 pg (28.0-32.0); Mean Corpuscular Hgb Conc. 33.2 g/dL (32.0-36.0); Mean Corpuscular Volume 84.5 fL (80.0-100.0); Monocytes # (auto) 1.2 10 ^3/uL (0-1.3); Monocytes % (auto) 9.7 % (0.0-12.0); Neutrophils # (auto) 8.3 10 ^3/uL (1.6-8.6); Neutrophils % (auto) 65.4 % (37.0-80.0); Nucleated Red Blood Cells % 0.1 %; Red Blood Cells 4.63 10^6/uL (4.5-5.90); Red Cell Distribution Width 15.5 % (11.8-14.3); White Blood Cell 12.8 10^3/uL (4.4-10.8)
[2021-05-08] MEDS: KETOROLAC TROMETH 30 MG/ML 1ML VIAL IV PRN (04:27)
[2021-05-08 04:29] LABS: Albumin 3.2 g/dL (3.4-5.0); Calcium 8.5 mg/dL (8.5-10.1); Magnesium 2.2 mg/dL (1.6-2.6); Potassium 3.9 mmol/L (3.5-5.1)
[2021-05-08 04:31] LABS: BUN/Creatinine Ratio 18.4
[2021-05-08 04:33] LABS: Bilirubin, Total 0.5 mg/dL (0.2-1.0); Phosphorus 4.9 mg/dL (2.5-4.90); Total Protein 6.6 g/dL (6.4-8.2)
[2021-05-08] MEDS: BUDESONIDE (INHALATION) 0.5 MG/2 ML NEB NEB SCH (06:11)
[2021-05-08] MEDS: NOREPINEPHRINE 8 MG/250ML KIT 250 ML IV SCH ×2 (09:25→22:45)
[2021-05-08] MEDS: InsuLIN REG 1unit/0.01ml Soln (100units/ml) SC SCH ×2 (10:00→21:46)
[2021-05-08] MEDS: MULTIPLE VITAMIN TAB PO SCH (10:16)
[2021-05-08] MEDS: PANTOPRAZOLE 40 MG TAB PO SCH (10:16)
[2021-05-08] MEDS: levETIRAcetam 500 MG TAB PO SCH ×2 (10:16→21:46)
[2021-05-08] MEDS: ENOXAPARIN SOD 40 MG/0.4 ML SYRINGE SC SCH (10:16)
[2021-05-08] MEDS: ACCU-CHEK COMFORT CURVE STRIP VI SCH ×2 (10:17→21:46)
[2021-05-08] MEDS: ACETAMINOPHEN 500 MG TAB PO PRN (14:26)
[2021-05-08] MEDS ORDERED: PANT40TA2 PO (17:43)
[2021-05-08] MEDS ORDERED: KEP500T PO (17:43)
[2021-05-09] VITALS (13 sets, daily range): BP systolic 124–145; BP diastolic 71–89
[2021-05-09] MEDS: ALBUTEROL SULF 2.5 MG/0.5ML(0.5%) NEB SOLN NEB PRN (00:26)
[2021-05-09] MEDS: BUDESONIDE (INHALATION) 0.5 MG/2 ML NEB NEB SCH (00:26)
[2021-05-09] MEDS: InsuLIN REG 1unit/0.01ml Soln (100units/ml) SC SCH (09:57)
[2021-05-09] MEDS: ACCU-CHEK COMFORT CURVE STRIP VI SCH (09:58)
[2021-05-09] MEDS: levETIRAcetam 500 MG TAB PO SCH (10:00)
[2021-05-09] MEDS: MULTIPLE VITAMIN TAB PO SCH (10:00)
[2021-05-09] MEDS: PANTOPRAZOLE 40 MG TAB PO SCH (10:00)
[2021-05-09] MEDS: ENOXAPARIN SOD 40 MG/0.4 ML SYRINGE SC SCH (10:03)
== END 2021-05-09 18:45 | disposition home health service (06) | DRG 5 ==
LOC: ER 22:22 → OVERFLOW 02-28 03:22 → ICU WEST 02-28 12:46
PROVIDERS: ADMIT Nurse Practitioner Family; ATTEND Internal Medicine
PROC: 5A09357 Assistance with Respiratory Ventilation, Less than 24 Consecutive Hours, Continuous Positive Airway Pressure (ICD-10-PCS; 2021-02-27)
PROC: 5A1955Z Respiratory Ventilation, Greater than 96 Consecutive Hours (ICD-10-PCS; 2021-02-28)
PROC: 0BH17EZ Insertion of Endotracheal Airway into Trachea, Via Natural or Artificial Opening (ICD-10-PCS; 2021-02-28)
PROC: XW033E5 Introduction of Remdesivir Anti-infective into Peripheral Vein, Percutaneous Approach, New Technology Group 5 (ICD-10-PCS; 2021-02-28)
PROC: 04HK33Z Insertion of Infusion Device into Right Femoral Artery, Percutaneous Approach (ICD-10-PCS; 2021-02-28)
PROC: 06HY33Z Insertion of Infusion Device into Lower Vein, Percutaneous Approach (ICD-10-PCS; 2021-02-28)
PROC: 0B918ZZ Drainage of Trachea, Via Natural or Artificial Opening Endoscopic (ICD-10-PCS; 2021-03-23)
PROC: 0DJ08ZZ Inspection of Upper Intestinal Tract, Via Natural or Artificial Opening Endoscopic (ICD-10-PCS; principal; 2021-04-15 14:15)
PROC: 0B110F4 Bypass Trachea to Cutaneous with Tracheostomy Device, Open Approach (ICD-10-PCS; 2021-04-18)
DX: A41.89 Other specified sepsis (principal); J12.82 Pneumonia due to coronavirus disease 2019; J96.21 Acute and chronic respiratory failure with hypoxia; I21.4 Non-ST elevation (NSTEMI) myocardial infarction; U07.1 COVID-19; I26.93 Single subsegmental thrombotic pulmonary embolism without acute cor pulmonale; N17.9 Acute kidney failure, unspecified; E87.0 Hyperosmolality and hypernatremia; E88.09 Other disorders of plasma-protein metabolism, not elsewhere classified; S06.890A Other specified intracranial injury without loss of consciousness, initial encounter; J84.10 Pulmonary fibrosis, unspecified; I50.9 Heart failure, unspecified; J98.11 Atelectasis; E55.9 Vitamin D deficiency, unspecified; G40.909 Epilepsy, unspecified, not intractable, without status epilepticus; D64.9 Anemia, unspecified; E66.01 Morbid (severe) obesity due to excess calories; E78.5 Hyperlipidemia, unspecified; R00.0 Tachycardia, unspecified; R53.81 Other malaise; R73.9 Hyperglycemia, unspecified; Y93.89 Activity, other specified; Y92.89 Other specified places as the place of occurrence of the external cause; Y99.8 Other external cause status
CPT/HCPCS: 31645; 36415; 36569; 36600; 43235; 70450; 71045; 71260; 71275; 72125; 73030; 73080; 73200; 73590; 74018; 76604; 76881; 80048; 80053; 80061; 80076; 80202; 81001; 82040; 82270; 82306; 82728; 82805; 82962; 83036; 83605; 83615; 83735; 83880; 84100; 84132; 84443; 84478; 84484; 85007; 85025; 85027; 85048; 85379; 85610; 85730; 86141; 86850; 86900; 86901; 87040; 87045; 87070; 87077; 87081; 87086; 87186; 87205; 87427; 87493; 92610; 93005; 93306; 93970; 93971; 94002; 94003; 94640; 94660; 95819; 96365; 96366; 96368; 97110; 97116; 97163; 97530; 99291; A4565; A4605; C9113; G0378; J0330; J0690; J0696; J1100; J1450; J1815; J1885; J2185; J2250; J2405; J2543; J2704; J3480; J3490; J7060; J7131

== ENCOUNTER 2021-05-12 21:02 | Emergency (ER) | payer MEDICAID ==
[~2021-05-12] VITALS: Ht 177.8 cm; Wt 115.7 kg
[~2021-05-12 21:02] MED LIST: KEP500T PO; PANT40TA2 PO
[2021-05-12] MEDS ORDERED: ALBUTEROL SULF 2.5 MG/0.5ML(0.5%) NEB SOLN ONE ×2 (21:10→21:20)
[2021-05-12] MEDS ORDERED: DexAMETHasone SOD PHOS 10MG/1ML VIAL INJ IV ONE (21:15)
[2021-05-12] MEDS ORDERED: ALBUTEROL SULF 2.5 MG/0.5ML(0.5%) NEB SOLN NEB ONE (22:15)
[2021-05-13] MEDS ORDERED: HYDROcodone-ACET 5/325MG TAB PO PRN (01:45)
[2021-05-13] MEDS ORDERED: ONDANSETRON HCL 4 MG/2 ML VIAL IV PRN (01:45)
[2021-05-13] MEDS ORDERED: cefTRIAXone 1GM/50ML D5W 50 ML IV ONE (01:45)
[2021-05-13] MEDS ORDERED: ALBUTEROL SULF 2.5 MG/0.5ML(0.5%) NEB SOLN NEB PRN (01:45)
[2021-05-13] MEDS ORDERED: ACETAMINOPHEN 325 MG TAB PO PRN (01:45)
[2021-05-13] MEDS ORDERED: DOCUSATE SOD 100 MG CAP PO PRN (01:45)
[2021-05-13] MEDS ORDERED: IPRATROPIUM BROM 0.5 MG/2.5ML INH SOL NEB PRN (01:45)
[2021-05-13 01:50] VITALS: BP 115/69
[2021-05-13 02:41] LABS: Basophils # (auto) 0 10 ^3/uL (0-0.2); Basophils % (auto) 0.2 % (0.0-2.0); Eosinophils # (auto) 0 10 ^3/uL (0-0.8); Eosinophils % (auto) 0.1 % (0.0-7.0); Hematocrit 40.1 % (41.0-53.0); Hemoglobin 13.2 g/dL (13.5-17.5); Lymphocytes # (auto) 0.7 10 ^3/uL (0.4-5.4); Lymphocytes % (auto) 5.5 % (10.0-50.0); Mean Corpuscular Volume 84.9 fL (80.0-100.0); Monocytes # (auto) 0.1 10 ^3/uL (0-1.3); Monocytes % (auto) 0.7 % (0.0-12.0); Neutrophils # (auto) 12.6 10 ^3/uL (1.6-8.6); Neutrophils % (auto) 93.5 % (37.0-80.0); Red Blood Cells 4.73 10^6/uL (4.5-5.90); Red Cell Distribution Width 15.5 % (11.8-14.3); White Blood Cell 13.5 10^3/uL (4.4-10.8)
[2021-05-13 02:55] LABS: Albumin 3.3 g/dL (3.4-5.0); Calcium 9.1 mg/dL (8.5-10.1); Potassium 4.3 mmol/L (3.5-5.1)
[2021-05-13 02:57] LABS: BUN/Creatinine Ratio 15.1
[2021-05-13 03:00] LABS: Bilirubin, Total 0.2 mg/dL (0.2-1.0); Total Protein 7.3 g/dL (6.4-8.2)
[2021-05-13] MEDS: SODIUM CHLOR 0.9% PF (SALINE LOCK) 10ML VIAL/SYR IV SCH ×2 (06:30→14:23)
[2021-05-13] MEDS ORDERED: ASCORBIC ACID 500 MG TAB PO SCH (10:00)
[2021-05-13] MEDS ORDERED: DexAMETHasone SOD PHOS 10MG/1ML VIAL INJ IV SCH (10:00)
[2021-05-13] MEDS ORDERED: HEPARIN SODIUM (PORCINE) 5000 UNITS/ML 1ML VIAL SC SCH (10:00)
[2021-05-13] MEDS ORDERED: MULTIPLE VITAMIN TAB PO SCH (10:00)
[2021-05-13] MEDS ORDERED: FAMOTIDINE (10MG/ML) 2ML VL IV SCH (10:00)
[2021-05-13] MEDS ORDERED: ZINC SULFATE 220mg CAP or TAB PO SCH (10:00)
[2021-05-13 16:32] VITALS: BP 120/75
[2021-05-13] MEDS ORDERED: cefTRIAXone 1GM/50ML D5W 50 ML IV SCH (21:00)
== END 2021-05-13 16:48 | disposition admitted as inpatient to this hospital (09) ==
LOC: ER 21:02
DX: T17.490A Other foreign object in trachea causing asphyxiation, initial encounter (principal); Z79.899 Other long term (current) drug therapy; X58.XXXA Exposure to other specified factors, initial encounter; Y93.89 Activity, other specified; Y92.89 Other specified places as the place of occurrence of the external cause; Y99.8 Other external cause status
CPT/HCPCS: 36415; 71045; 80053; 85025; 94644; 96365; 96367; 96372; 96375; 99285; J0696; J1100; J1644; J1953; J3490; J7060